=== PATIENT | male | born 1955 | race Caucasian/White ===

== ENCOUNTER 2022-11-18 16:21 | Inpatient (IN) ==
[~2022-11-18 16:21] MED LIST: KETAMINE HCL INJ 50 MG/ML 10 ML VIAL IV ONE; ROCURONIUM BROMIDE 10 MG/ML 5 ML VIAL IV ONE
[2022-11-18] MEDS ORDERED: RAPID SEQUENCE INDUCTION BAG ONE (16:38)
[2022-11-18] MEDS ORDERED: NOREPINEPHRINE/D5W 4 MG/250 ML IV ONE (16:46)
[2022-11-18] MEDS ORDERED: SODIUM CHLORIDE 0.9% 1000ML 2,000 ML IV ONE (16:56)
[2022-11-18] MEDS ORDERED: CEFEPIME 2,000 MG/20 ML VIAL IV STA (16:56)
--- NOTE | 2022-11-18 16:56 | XRay Report ---
XR chest 1V portable CLINICAL HISTORY: Chest pain, nonspecific. COMPARISON STUDY: No previous studies for comparison. FINDINGS: Multifocal airspace opacities throughout the right lung are noted. These are most pronounce d within the right lung base. There is a 3.5 cm irregular right upper lobe opacity. There is also mil d left basilar opacity. Patient is mildly rotated. No pneumothorax or pleural effusion is present. Ca rdiac size is at upper limits of normal. IMPRESSION: Multifocal airspace opacities throughout the right lung, most confluent within the right lung base. 3.5 cm irregular right upper lobe opacity and mild left basilar opacity. Although nonspec ific, the findings favor multifocal pneumonia. However, short-term radiographic follow-up is recommen ded to ensure resolution and exclude the possibility of an underlying lesion, particularly within the right upper lobe. ACT 112: Positive. There are findings on this exam that require communication between the performing entity and the patient following Patient Test Result Information Act ([place] Act 112) guidelines. Electronically signed by: Subhash Strickland M.D. 11/18/2022 4:54 PM
[2022-11-18] MEDS ORDERED: fentaNYL citrate 2,500 MCG/250 ML BAG IV ONE (16:57)
--- NOTE | 2022-11-18 16:57 | Emergency Department Note ---
Impression & Plan Septic shock, Pneumonia, Respiratory failure ED Provider Note NAME: CARLO ANTON AGE: 67 SEX: M : 1955 ARRIVES VIA: Ambulance INFORMANT: Patient, Son ED PROVIDER(S): Evaristo Wilson DO CHIEF COMPLAINT: Hypoxia/shortness of breath HPI: Patient is a 67-year-old male who presents to the ER with a 2 known meningiomas of the brain who has undergone resection radiation and now on immunotherapy. They note that he is no longer a candidate for any surgical or radiation treatment. He was brought in today as he was recently signed up with palliative care and the patient wants everything done. He does wants CPR, intubation and PEG tube. Upon presentation brought in by EMS they note that he was fairly hypoxic and on nonrebreather. PAST MEDICAL HISTORY:See Below PAST SURGICAL HISTORY:See Below FAMILY HISTORY:See Below SOCIAL HISTORY:See Below HOME MEDICATIONS:See Below ALLERGIES:See Below VITALS:See Below PHYSICAL EXAMINATION: GENERAL: Sitting up in bed, alert, ill-appearing, significant distress on a nonrebreather EYE EXAM: normal conjunctiva. PERRL and EOM's grossly intact. OROPHARYNX: Dry mucous membrane NECK: supple, no nuchal rigidity, no adenopathy, non-tender LUNGS: Diminished bilateral. Normal chest wall mechanics HEART: Tachycardic, S1 normal and S2 normal ABDOMEN: abdomen soft, non-tender, normo-active bowel sounds, no masses, no rebound or guarding. UPPER EXTREMITIES: upper extremities are grossly normal. LOWER EXTREMITIES: No pitting edema. NEURO EXAM: Normal sensorium, cranial nerves II-XII grossly intact, normal speech, no gross weakness of arms, no gross weakness of legs. MEDICAL DECISION MAKING: Patient is a 67-year-old male who presents ER for above-stated complaint. We have no records of this gentleman here. He has a known meningioma of the brain x2 with previous resection, radiation who was on palliative medicine who revoked prior to coming in and wants to be intubated, CPR and a feeding tube. Upon arrival he is found to be hypoxic on a nonrebreather at 85%. He was moved into a 1. I discussed with his son. Patient was intubated by myself. Chest x-ray confirmed ET tube placement. Was advanced 2 cm. This was performed following initial chest x-ray which showed multifocal pneumonia. Labs show no significant leukocytosis. Mild anemia 11. VBG was fairly unremarkable. BMP along with LFTs bilirubin was unremarkable. Lactate was normal. Troponin was negative. Lipase was normal. Patient was given IV cefepime as well as IV vancomycin with her recent admission to an outside facility. He was initially placed on Levophed and titrated back off. During intubation. Was placed on a Versed and fentanyl drip. He was given a dose of Toradol for fever. Family was updated. Discussed with the hospitalist Dr. Ramirez as well as the childbirth and infant care teacher for admission and further evaluation management treatment. He was also given 2 L of IV fluids while in the ER. Triage Nursing notes reviewed. Limited review of prior medical records performed Vital Signs: reviewed and remarkable for hypoxia Differential diagnosis: Differential diagnoses includes but is not limited to pneumonia, bronchitis, COPD/Asthma exacerbation, pneumothorax, pulmonary embolism, congestive heart failure, acute coronary syndrome ER treatment provided: See below Diagnostics interpreted by me include EKG and cardiac monitoring as listed b elow: -Cardiac Monitoring: An order was placed for continuous cardiac monitoring. The monitor shows a rate of 85 with sinus rhythm. -ECG: Sinus rhythm rate of 73 Normal axis No PVCs QTc 420 -Laboratory studies:Interpreted by me as stated above in MDM and shown below. Imaging studies: Xrays: As interpreted by me: Portable AP upright 1 view of the chest shows multifocal infiltrate Repeat chest x-ray shows ET tube about 4 to 5 cm above yovanny CTs show: none Consultation(s): As described in MDM Procedures:EM PROCEDURE NOTE - Endotracheal Intubation PROCEDURE NOTE: Informed consent was obtained by the patient. Verify Correct Patient: yes Procedure: Endotracheal intubation Indication: Respiratory failure The procedure was done emergently. Description of the Procedure: The patient was seen and properly identified. The patient was pre-oxygenated and intubated after rapid sequence induction with meds: Rocuronium and ketamine. Intubation was performed using a glide scope curved 3 blade and a 7.5 cuffed endotracheal tube. The tube was visualized going through the cords and secured with the 25cm jese at the lips. The patient had good bilateral breath sounds in the axillae with good chest rise. Proper ET tube placement was confirmed by end tidal CO2 detector. The patient tolerated the procedure well. Critical Care:I have personally spent 75 minutes of critical care time in the direct management of this patient. This includes bedside care, interpretation of diagnostic studies, and testing, discussion with consultants, patient, and family members, and other required patient management activities. This 75 minutes is in excess of all separately billable procedures. Past Med/Surg History Social History Smoking Status: Never smoker Preferred Language: Lao Feels Safe at Home: Yes Allergies Allergies Allergy/AdvReac Type Severity Reaction Status Date / Time iodine Allergy Unknown SWELLING Verified 11/18/22 19:43 shellfish derived Allergy Unknown SWELLING Verified 11/18/22 19:43 Home Meds Home Medications Medication Instructions Recorded Confirmed acetaminophen 650 mg rectal 650 mg TN Q4 PRN MILD PAIN/FEVER 11/18/22 11/18/22 suppository haloperidol lactate 2 mg/mL oral 1 mg PO Q4 PRN 11/18/22 11/18/22 concentrate nausea/vomiting/agitation hyoscyamine sulfate 0.125 mg tablet 0.125 mg sublingual Q4 PRN 11/18/22 11/18/22 TERMINAL SECRETIONS lorazepam 1 mg tablet See Rx Instructions .Route .COMPLEX 11/18/22 11/18/22 lorazepam 1 mg tablet See Rx Instructions .Route 11/18/22 11/18/22 .COMPLEX NTE 6 morphine concentrate 100 mg/5 mL 5 mg PO .Q 2 HOURS PRN severe 11/18/22 11/18/22 (20 mg/mL) oral solution pain/sob Results & Data (ED) Vital Signs Vital Signs - 24 hr 11/18/22 16:35 11/18/22 16:25 11/18/22 17:15 Temperature 38.1 C H Temperature Source Rectal Pulse Rate 73 72 93 H Pulse Rate from SpO2 Sensor Pulse Rhythm Regular Pulse Strength Normal Respiratory Rate 26 H 20 Respiratory Effort / Characteristics Spontaneous Respiratory Depth Shallow Respiratory Pattern Tachypnea Blood Pressure 94/61 L Blood Pressure Mean 72 Blood Pressure Position Lying Pulse Oximetry 91 94 Oxygen Delivery Method Non-rebreather Oxygen Flow Rate 15 Fraction of Inspired Oxygen 60 SaO2/FiO2 Ratio Sepsis Recent Fever Within 48 Hours No Sepsis New/Unexplained Change in Mental Status Yes Sepsis Action Taken by Nursing Physician Notified End-Tidal CO2 46 11/18/22 16:25 11/18/22 16:26 11/18/22 16:30 Temperature Temperature Source Pulse Rate 71 Pulse Rate from SpO2 Sensor 72 Pulse Rhythm Pulse Strength Respiratory Rate 28 H Respiratory Effort / Characteristics Respiratory Depth Respiratory Pattern Blood Pressure 94/61 L 106/66 Blood Pressure Mean 71 71 Blood Pressure Position Pulse Oximetry 91 Oxygen Delivery Method Oxygen Flow Rate Fraction of Inspired Oxygen SaO2/FiO2 Ratio Sepsis Recent Fever Within 48 Hours Sepsis New/Unexplained Change in Mental Status Sepsis Action Taken by Nursing End-Tidal CO2 11/18/22 16:30 11/18/22 16:40 11/18/22 16:45 Temperature Temperature Source Pulse Rate 79 74 Pulse Rate from SpO2 Sensor 74 Pulse Rhythm Pulse Strength Respiratory Rate 15 18 Respiratory Effort / Characteristics Respiratory Depth Respiratory Pattern Blood Pressure 86/58 L Blood Pressure Mean 67 Blood Pressure Position Pulse Oximetry 90 Oxygen Delivery Method Oxygen Flow Rate Fraction of Inspired Oxygen SaO2/FiO2 Ratio Sepsis Recent Fever Within 48 Hours Sepsis New/Unexplained Change in Mental Status Sepsis Action Taken by Nursing End-Tidal CO2 11/18/22 16:45 11/18/22 16:49 11/18/22 16:49 Temperature Temperature Source Pulse Rate 72 73 Pulse Rate from SpO2 Sensor 72 Pulse Rhythm Pulse Strength Respiratory Rate 22 24 Respiratory Effort / Characteristics Respiratory Depth Respiratory Pattern Blood Pressure 92/56 L Blood Pressure Mean 68 Blood Pressure Position Pulse Oximetry 91 Oxygen Delivery Method Oxygen Flow Rate Fraction of Inspired Oxygen SaO2/FiO2 Ratio Sepsis Recent Fever Within 48 Hours Sepsis New/Unexplained Change in Mental Status Sepsis Action Taken by Nursing End-Tidal CO2 11/18/22 16:50 11/18/22 16:50 11/18/22 16:53 Temperature Temperature Source Pulse Rate 73 74 Pulse Rate from SpO2 Sensor 73 73 Pulse Rhythm Pulse Strength Respiratory Rate 19 20 Respiratory Effort / Characteristics Respiratory Depth Respiratory Pattern Blood Pressure 78/55 L Blood Pressure Mean 62 Blood Pressure Position Pulse Oximetry 93 97 Oxygen Delivery Method Oxygen Flow Rate Fraction of Inspired Oxygen SaO2/FiO2 Ratio Sepsis Recent Fever Within 48 Hours Sepsis New/Unexplained Change in Mental Status Sepsis Action Taken by Nursing End-Tidal CO2 11/18/22 16:53 11/18/22 16:55 11/18/22 16:55 Temperature Temperature Source Pulse Rate 81 Pulse Rate from SpO2 Sensor 82 Pulse Rhythm Pulse Strength Respiratory Rate 24 Respiratory Effort / Characteristics Respiratory Depth Respiratory Pattern Blood Pressure 151/106 H 151/88 H Blood Pressure Mean 121 109 Blood Pressure Position Pulse Oximetry 98 Oxygen Delivery Method Oxygen Flow Rate Fraction of Inspired Oxygen SaO2/FiO2 Ratio Sepsis Recent Fever Within 48 Hours Sepsis New/Unexplained Change in Mental Status Sepsis Action Taken by Nursing End-Tidal CO2 11/18/22 16:58 11/18/22 16:58 11/18/22 17:00 Temperature Temperature Source Pulse Rate 83 Pulse Rate from SpO2 Sensor 83 Pulse Rhythm Pulse Strength Respiratory Rate 12 Respiratory Effort / Characteristics Respiratory Depth Respiratory Pattern Blood Pressure 143/87 H 162/90 H Blood Pressure Mean 105 114 Blood Pressure Position Pulse Oximetry 98 Oxygen Delivery Method Oxygen Flow Rate Fraction of Inspired Oxygen SaO2/FiO2 Ratio Sepsis Recent Fever Within 48 Hours Sepsis New/Unexplained Change in Mental Status Sepsis Action Taken by Nursing End-Tidal CO2 45 11/18/22 17:00 11/18/22 17:03 11/18/22 17:03 Temperature Temperature Source Pulse Rate 86 88 Pulse Rate from SpO2 Sensor 85 87 Pulse Rhythm Pulse Strength Respiratory Rate 16 17 Respiratory Effort / Characteristics Respiratory Depth Respiratory Pattern Blood Pressure 150/95 H Blood Pressure Mean 113 Blood Pressure Position Pulse Oximetry 96 95 Oxygen Delivery Method Oxygen Flow Rate Fraction of Inspired Oxygen SaO2/FiO2 Ratio Sepsis Recent Fever Within 48 Hours Sepsis New/Unexplained Change in Mental Status Sepsis Action Taken by Nursing End-Tidal CO2 45 46 11/18/22 17:05 11/18/22 17:05 11/18/22 17:08 Temperature Temperature Source Pulse Rate 90 Pulse Rate from SpO2 Sensor 87 Pulse Rhythm Pulse Strength Respiratory Rate 12 Respiratory Effort / Characteristics Respiratory Depth Respiratory Pattern Blood Pressure 164/97 H 158/92 H Blood Pressure Mean 119 114 Blood Pressure Position Pulse Oximetry 94 Oxygen Delivery Method Oxygen Flow Rate Fraction of Inspired Oxygen SaO2/FiO2 Ratio Sepsis Recent Fever Within 48 Hours Sepsis New/Unexplained Change in Mental Status Sepsis Action Taken by Nursing End-Tidal CO2 50 11/18/22 17:08 11/18/22 17:09 11/18/22 17:09 Temperature Temperature Source Pulse Rate 88 89 Pulse Rate from SpO2 Sensor 88 89 Pulse Rhythm Pulse Strength Respiratory Rate 17 16 Respiratory Effort / Characteristics Respiratory Depth Respiratory Pattern Blood Pressure 153/87 H Blood Pressure Mean 109 Blood Pressure Position Pulse Oximetry 94 93 Oxygen Delivery Method Oxygen Flow Rate Fraction of Inspired Oxygen SaO2/FiO2 Ratio Sepsis Recent Fever Within 48 Hours Sepsis New/Unexplained Change in Mental Status Sepsis Action Taken by Nursing End-Tidal CO2 48 47 11/18/22 17:10 11/18/22 17:10 11/18/22 17:12 Temperature Temperature Source Pulse Rate 87 Pulse Rate from SpO2 Sensor Pulse Rhythm Pulse Strength Respiratory Rate 16 Respiratory Effort / Characteristics Respiratory Depth Respiratory Pattern Blood Pressure 153/90 H 158/90 H Blood Pressure Mean 111 112 Blood Pressure Position Pulse Oximetry Oxygen Delivery Method Oxygen Flow Rate Fraction of Inspired Oxygen SaO2/FiO2 Ratio Sepsis Recent Fever Within 48 Hours Sepsis New/Unexplained Change in Mental Status Sepsis Action Taken by Nursing End-Tidal CO2 48 11/18/22 17:12 11/18/22 17:14 11/18/22 17:14 Temperature Temperature Source Pulse Rate 90 90 Pulse Rate from SpO2 Sensor 90 89 Pulse Rhythm Pulse Strength Respiratory Rate 16 17 Respiratory Effort / Characteristics Respiratory Depth Respiratory Pattern Blood Pressure 161/90 H Blood Pressure Mean 113 Blood Pressure Position Pulse Oximetry 92 93 Oxygen Delivery Method Oxygen Flow Rate Fraction of Inspired Oxygen SaO2/FiO2 Ratio Sepsis Recent Fever Within 48 Hours Sepsis New/Unexplained Change in Mental Status Sepsis Action Taken by Nursing End-Tidal CO2 49 51 11/18/22 17:15 11/18/22 17:15 11/18/22 17:20 Temperature Temperature Source Pulse Rate 92 H Pulse Rate from SpO2 Sensor Pulse Rhythm Pulse Strength Respiratory Rate 16 Respiratory Effort / Characteristics Respiratory Depth Respiratory Pattern Blood Pressure 159/94 H 158/92 H Blood Pressure Mean 115 114 Blood Pressure Position Pulse Oximetry Oxygen Delivery Method Oxygen Flow Rate Fraction of Inspired Oxygen SaO2/FiO2 Ratio Sepsis Recent Fever Within 48 Hours Sepsis New/Unexplained Change in Mental Status Sepsis Action Taken by Nursing End-Tidal CO2 51 11/18/22 17:20 11/18/22 17:39 11/18/22 17:41 Temperature Temperature Source Pulse Rate 93 H 121 H Pulse Rate from SpO2 Sensor 95 H Pulse Rhythm Pulse Strength Respiratory Rate 21 25 H Respiratory Effort / Characteristics Respiratory Depth Respiratory Pattern Blood Pressure Blood Pressure Mean Blood Pressure Position Pulse Oximetry 93 94 Oxygen Delivery Method Mechanical Vent Mechanical Vent Oxygen Flow Rate Fraction of Inspired Oxygen 60 60 SaO2/FiO2 Ratio 156 Sepsis Recent Fever Within 48 Hours Sepsis New/Unexplained Change in Mental Status Sepsis Action Taken by Nursing End-Tidal CO2 48 Laboratory Data 11/18/22 16:49 11/18/22 16:49 Lab Results 11/18/22 11/18/22 11/18/22 Range/Units 16:49 16:49 16:49 WBC 9.46 (4.8-10.8) K/ul RBC 4.34 L (4.70-6.10) M/uL Hgb 13.4 L (14.0-18.0) g/dl POC Hgb (14.0-18.0) g/dl Hct 39.1 L (42.0-52.0) % POC Hct (42-52) % MCV 90.1 (80.0-100.0) fL MCH 30.9 (25.0-34.0) pg MCHC 34.3 (32.0-36.0) g/dL RDW Std Deviation 47.3 H (36.4-46.3) fL RDW Coeff of Chhaya 14.4 (11.5-14.5) % Plt Count 219 (130-400) K/uL MPV 8.6 L (9.4-12.4) fL Immature Gran % (Auto) 0.6 % Neut % (Auto) 89.4 % Lymph % (Auto) 2.7 % Mora % (Auto) 6.8 % Eos % (Auto) 0.2 % Baso % (Auto) 0.3 % Neut # (Auto) 8.45 H (1.40-6.50) K/uL Lymph # (Auto) 0.26 L (1.2-3.4) K/uL Mora # (Auto) 0.64 H (0.11-0.59) K/uL Eos # (Auto) 0.02 (0-0.50) K/uL Baso # (Auto) 0.03 (0-0.2) K/uL Immature Gran # (Auto) 0.06 (0.01-0.20) K/uL Dohle Bodies 2+ VBG pH 7.46 H (7.36-7.41) VBG pCO2 40 (38-50) mmHg VBG pO2 58 mmHg VBG HCO3 28 mmol/L VBG O2 Saturation 89.2 % VBG Base Excess 4.2 mEq/L POC Sodium (135-144) mmol/L Sodium 138 (136-145) mmol/L POC Potassium (3.3-5.0) mmol/L Potassium 3.7 (3.5-5.1) mmol/L POC Chloride (101-112) mmol/L Chloride 104 (98-107) mmol/L Carbon Dioxide 27 (21-32) mmol/L POC Total CO2 (24-31) mmol/L Anion Gap 7 (3-11) POC Anion Gap (16-25) mmol/L POC BUN (7-18) mg/dl BUN 20 (6-23) mg/dl Creatinine 0.85 (0.6-1.4) mg/dl POC Creatinine (0.6-1.3) mg/dl Est Cr Clr Drug Dosing 88.3 ml/min Est GFR ( Amer) 105.2 ml/min Est GFR (Non-Af Amer) 90.8 ml/min BUN/Creatinine Ratio 23.5 H (10-20) Glucose 107 H (70-99(Fasting)) mg/dl POC Glucose (other) (70-99) mg/dl Lactate (0.4-2.0) mmol/L Calcium 8.3 L (8.6-10.3) mg/dl POC Ioniz Calcium Leonides (1.12-1.32) mmol/l Total Bilirubin 0.7 (0.2-1.0) mg/dl AST 9 L (13-39) U/L ALT 8 (7-52) U/L Alkaline Phosphatase 55 (34-104) U/L Troponin I High Sens 3.4 (0-20) pg/ml Total Protein 5.8 L (6.0-8.3) gm/dl Albumin 3.1 L (3.4-5.0) gm/dl Globulin 2.7 (2.5-4.0) gm/dl Albumin/Globulin Ratio 1.1 (0.9-2) Lipase 3 L (11-82) U/L 11/18/22 11/18/22 Range/Units 16:49 16:54 WBC (4.8-10.8) K/ul RBC (4.70-6.10) M/uL Hgb (14.0-18.0) g/dl POC Hgb 12.9 L (14.0-18.0) g/dl Hct (42.0-52.0) % POC Hct 38 L (42-52) % MCV (80.0-100.0) fL MCH (25.0-34.0) pg MCHC (32.0-36.0) g/dL RDW Std Deviation (36.4-46.3) fL RDW Coeff of Chhaya (11.5-14.5) % Plt Count (130-400) K/uL MPV (9.4-12.4) fL Immature Gran % (Auto) % Neut % (Auto) % Lymph % (Auto) % Mora % (Auto) % Eos % (Auto) % Baso % (Auto) % Neut # (Auto) (1.40-6.50) K/uL Lymph # (Auto) (1.2-3.4) K/uL Mora # (Auto) (0.11-0.59) K/uL Eos # (Auto) (0-0.50) K/uL Baso # (Auto) (0-0.2) K/uL Immature Gran # (Auto) (0.01-0.20) K/uL Dohle Bodies VBG pH (7.36-7.41) VBG pCO2 (38-50) mmHg VBG pO2 mmHg VBG HCO3 mmol/L VBG O2 Saturation % VBG Base Excess mEq/L POC Sodium 138 (135-144) mmol/L Sodium (136-145) mmol/L POC Potassium 3.7 (3.3-5.0) mmol/L Potassium (3.5-5.1) mmol/L POC Chloride 101 (101-112) mmol/L Chloride (98-107) mmol/L Carbon Dioxide (21-32) mmol/L POC Total CO2 23 L (24-31) mmol/L Anion Gap (3-11) POC Anion Gap 19.0 (16-25) mmol/L POC BUN 18 (7-18) mg/dl BUN (6-23) mg/dl Creatinine (0.6-1.4) mg/dl POC Creatinine 0.8 (0.6-1.3) mg/dl Est Cr Clr Drug Dosing ml/min Est GFR ( Amer) ml/min Est GFR (Non-Af Amer) ml/min BUN/Creatinine Ratio (10-20) Glucose (70-99(Fasting)) mg/dl POC Glucose (other) 111 H (70-99) mg/dl Lactate 1.0 (0.4-2.0) mmol/L Calcium (8.6-10.3) mg/dl POC Ioniz Calcium Leonides 1.11 L (1.12-1.32) mmol/l Total Bilirubin (0.2-1.0) mg/dl AST (13-39) U/L ALT (7-52) U/L Alkaline Phosphatase (34-104) U/L Troponin I High Sens (0-20) pg/ml Total Protein (6.0-8.3) gm/dl Albumin (3.4-5.0) gm/dl Globulin (2.5-4.0) gm/dl Albumin/Globulin Ratio (0.9-2) Lipase (11-82) U/L Administered Medications Fentanyl Citrate (Fentanyl Bolus From Bag) 50 mcg IV Q60M PRN PRN Reason: Pain or Agitation Stop: 12/02/22 16:58 Last Admin: 11/18/22 17:48 Dose: 50 mcg Documented By: MES Co-signed By: ACC Midazolam HCl (Versed) 125 mg in 250 mls @ 2 mls/hr IV .Q96H RODERICK; Protocol Stop: 12/18/22 16:59 Last Admin: 11/18/22 17:13 Dose: 1 mg/hr, 2 mls/hr Documented By: ACC Co-signed By: MES Fentanyl Citrate (Fentanyl Citrate) 2,500 mcg in 250 mls @ 2.5 mls/hr IV .Q96H RODERICK; Protocol Stop: 12/02/22 16:59 Last Admin: 11/18/22 17:07 Dose: 25 mcg/hr, 2.5 mls/hr Documented By: ACC Co-signed By: MES Norepinephrine Bitartrate (Levophed/D5w) 4 mg in 250 mls @ 0 mls/hr IV .Q0M RODERICK; Protocol Stop: 12/18/22 17:14 Last Titration: 11/18/22 17:37 Dose: 0 mcg/kg/min, 0 mls/hr Documented By: Admin: 11/18/22 17:36 Dose: 0.03 mcg/kg/min, 8.3 mls/hr Documented By: ACC Co-signed By: MES Midazolam HCl (Midazolam Bolus From Bag) 2 mg IV Q60M PRN PRN Reason: Sedation Stop: 12/18/22 16:58 Last Admin: 11/18/22 17:48 Dose: 2 mg Documented By: MES Co-signed By: ACC Discontinued Medications Fentanyl Citrate (Fentanyl Citrate 2,500 Mcg/250 Ml Bag) Confirm Administered Dose 2,500 mcg IV .STK-MED ONE Stop: 11/18/22 16:58 Last Admin: 11/18/22 17:35 Dose: Not Given Documented By: ACC Cefepime HCl (Maxipime) 2,000 mg in 20 mls @ 5 mls/min IV NOW STA; Protocol Stop: 11/18/22 16:59 Last Admin: 11/18/22 17:47 Dose: 5 mls/min Documented By: MES Sodium Chloride (Nss 1000ml) 2,000 mls @ 999 mls/hr IV .Q2H1M ONE Stop: 11/18/22 18:56 Last Admin: 11/18/22 17:36 Dose: 999 mls/hr Documented By: ACC Vancomycin HCl 1,500 mg/ (Sodium Chloride) 530 mls @ 200 mls/hr IV NOW ONE Stop: 11/18/22 19:56 Last Admin: 11/18/22 18:00 Dose: 200 mls/hr Documented By: ACC Ketorolac Tromethamine (Ketorolac Tromethamine 15 Mg/Ml Vial) 15 mg IV NOW ONE Stop: 11/18/22 17:37 Last Admin: 11/18/22 17:48 Dose: 15 mg Documented By: MES Norepinephrine Bitartrate (Norepinephrine/D5w 4 Mg/250 Ml) Confirm Administered Dose 4 mg IV .STK-MED ONE Stop: 11/18/22 16:47 Last Admin: 11/18/22 17:36 Dose: Not Given Documented By: ACC Imaging Data Radiologist's Impression: Chest X-Ray 11/18/22 16:34 XR chest 1V portable CLINICAL HISTORY: Chest pain, nonspecific. COMPARISON STUDY: No previous studies for comparison. FINDINGS: Multifocal airspace opacities throughout the right lung are noted. These are most pronounced within the right lung base. There is a 3.5 cm irregu lar right upper lobe opacity. There is also mild left basilar opacity. Patient is mildly rotated. No pneumothorax or pleural effusion is present. Cardiac size is at upper limits of normal. IMPRESSION: Multifocal airspace opacities throughout the right lung, most confluent within the right lung base. 3.5 cm irregular right upper lobe opacity and mild left basilar opacity. Although nonspecific, the findings favor multifocal pneumonia. However, short-term radiographic follow-up is recommended to ensure resolution and exclude the possibility of an underlying lesion, part icularly within the right upper lobe. ACT 112: Positive. There are findings on this exam that require communication between the performing entity and the patient following Patient Test Result Information Act ([place] Act 112) guidelines. Electronically signed by: Subhash Strickland M.D. 11/18/2022 4:54 PM Chest X-Ray 11/18/22 16:57 XR chest 1V portable HISTORY: Evaluate endotracheal tube placement. COMPARISON: Chest 11/18/2022. FINDINGS: Endotracheal tube terminates 5.4 cm from the yovanny. No pneumothorax. No pleural effusions. The cardiac silhouette remains mildly enlarged. Multifocal airspace opacities within the right lung are again noted with consolidation at the right lower lobe. There are few small patchy airspace opacities within the left lung base. This likely represents a multifocal pneumonia. IMPRESSION: 1. Endotracheal tube terminates 5.4 cm from the yovanny. 2. Multifocal airspace opacities most pronounced on the right again noted. This favors a pneumonia. Chest x-ray follow-up recommended to ensure resolution. ACT 112: Negative or not required by law. Electronically signed by: Felix Cristobal M.D. 11/18/2022 5:07 PM Discharge Plan Visit Data Chief Complaint: Shortness of Breath/Dyspnea Stated Complaint: POSS ASPIRATION ED Provider: Evaristo Wilson Discharge Problem: Septic shock, Pneumonia, Respiratory failure Patient Disposition: Admitted As Inpatient Discharge Instructions Interventions: ED Discharge Assessment Last Done: 11/18/22 18:44
[2022-11-18] MEDS ORDERED: MIDAZOLAM BOLUS FROM BAG IV PRN (16:59)
[2022-11-18] MEDS ORDERED: STAT IV Infusion **Titration per Protocol STA ×3 (16:59→19:23)
[2022-11-18] MEDS ORDERED: fentaNYL citrate 2,500 MCG/250 ML BAG IV SCH (17:00)
[2022-11-18] MEDS ORDERED: MIDAZOLAM HCL 125 MG/250 ML BAG IV SCH (17:00)
[2022-11-18 17:02] LABS: Base Excess VBG 4.2 mEq/L; HCO3 VBG 28 mmol/L; Oxygen Saturation VBG 89.2 %; PCO2 VBG 40 mmHg (38-50); PO2 VBG 58 mmHg; pH VBG 7.46 (7.36-7.41)
[2022-11-18 17:08] LABS: iSTAT Creatinine 0.8 mg/dl (0.6-1.3); iSTAT Hemoglobin 12.9 g/dl (14.0-18.0); iSTAT Ionized Calcium 1.11 mmol/l (1.12-1.32); iSTAT Potassium 3.7 mmol/L (3.3-5.0)
--- NOTE | 2022-11-18 17:08 | XRay Report ---
XR chest 1V portable HISTORY: Evaluate endotracheal tube placement. COMPARISON: Chest 11/18/2022. FINDINGS: Endotracheal tube terminates 5.4 cm from the yovanny. No pneumothorax. No pleural effusions. The cardiac silhouette remains mildly enlarged. Multifocal airspace opacities within the right lung are again noted with consolidation at the right lower lobe. There are few small patchy airspace opaci ties within the left lung base. This likely represents a multifocal pneumonia. IMPRESSION: 1. Endotracheal tube terminates 5.4 cm from the yovanny. 2. Multifocal airspace opacities most pronounced on the right again noted. This favors a pneumonia. C hest x-ray follow-up recommended to ensure resolution. ACT 112: Negative or not required by law. Electronically signed by: Felix Cristobal M.D. 11/18/2022 5:07 PM
[2022-11-18] MEDS ORDERED: VANCOMYCIN HCL 1,500 MG in SODIUM CHLORIDE 0.9% 500 ML IV ONE (17:18)
[2022-11-18] MEDS ORDERED: VANCOMYCIN CONSULT ACTIVE PRN (17:18)
[2022-11-18 17:21] LABS: Hematocrit (blood only) 39.1 % (42.0-52.0); Hemoglobin 13.4 g/dl (14.0-18.0); Mean Corpuscular Hemoglobin 30.9 pg (25.0-34.0); Mean Corpuscular Hgb Conc 34.3 g/dL (32.0-36.0); Mean Corpuscular Volume 90.1 fL (80.0-100.0); Mean Platelet Volume 8.6 fL (9.4-12.4); Platelet Count 219 K/uL (130-400); RDW Coefficient of Variation 14.4 % (11.5-14.5); RDW Standard Deviation 47.3 fL (36.4-46.3); Red Blood Count 4.34 M/uL (4.70-6.10); White Blood Count 9.46 K/ul (4.8-10.8)
[2022-11-18 17:28] LABS: Albumin Globulin Ratio 1.1 (0.9-2); Albumin Level 3.1 gm/dl (3.4-5.0); BUN Creatinine Ratio 23.5 (10-20); Bilirubin,Total 0.7 mg/dl (0.2-1.0); Calcium 8.3 mg/dl (8.6-10.3); Creatinine Clr Calc Pharmacy 88.3 ml/min; Est GFR (African American) 105.2 ml/min; Est GFR (Non-African American) 90.8 ml/min; Globulin 2.7 gm/dl (2.5-4.0); Potassium 3.7 mmol/L (3.5-5.1); Total Protein 5.8 gm/dl (6.0-8.3)
[2022-11-18 17:33] LABS: Troponin I High Sensitivity 3.4 pg/ml (0-20)
[2022-11-18] MEDS: NOREPINEPHRINE/D5W 4 MG/250 ML PLCT IV SCH (17:36)
[2022-11-18] MEDS ORDERED: KETOROLAC TROMETHAMINE 15 MG/ML VIAL IV ONE (17:36)
[2022-11-18] MEDS: fentaNYL BOLUS from BAG IV PRN ×2 (17:48→20:30)
[2022-11-18 17:54] LABS: Basophils # (auto) 0.03 K/uL (0-0.2); Basophils % (auto) 0.3 %; Dohle Bodies 2+; Eosinophils # (auto) 0.02 K/uL (0-0.50); Eosinophils % (auto) 0.2 %; Immature Granulocytes # (auto) 0.06 K/uL (0.01-0.20); Immature Granulocytes % (auto) 0.6 %; Lymphocytes # (auto) 0.26 K/uL (1.2-3.4); Lymphocytes % (auto) 2.7 %; Monocytes # (auto) 0.64 K/uL (0.11-0.59); Monocytes % (auto) 6.8 %; Neutrophils # (auto) 8.45 K/uL (1.40-6.50); Neutrophils % (auto) 89.4 %
[2022-11-18] MEDS ORDERED: DEXAMETHASONE SOD INJ 4 MG/ML VIAL IV SCH (18:00)
--- NOTE | 2022-11-18 18:25 | History & Physical Report ---
Date of Service November 18, 2022 Assessment & Plan (1) Septic shock: Plan: Admitted with increasing shortness of breath cough and noted to be febrile with low blood pressure Likely secondary to multilobar pneumonia which could be due to aspiration Has been intubated and started on intravenous pressor resents Started on intravenous cefepime and vancomycin Blood cultures have been taken [employer] consulted (2) Pneumonia: Plan: Likely secondary to aspiration History of brain meningioma on Keytruda and dexamethasone Has been having problem with swallowing for the last 1 month or more Condition got worse this morning with increasing shortness of breath likely secondary to ongoing aspiration Started on intravenous cefepime and vancomycin (3) Meningioma determined by biopsy of brain: Plan: Meningioma initial diagnosis 2015, biopsy done in [address] 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 Fournier in [facility]. He was evaluated in September of this year by Dr. Fournier and he has been otherwise stable without any significant problem. He started to have abnormal speech and also issues with swallowing about more than 1 month ago and he has been on Keytruda and dexamethasone for meningioma and the complication detailed of that is not known. He also was diagnosed with melanoma involving the left IUD a which according to the family members was clear but now he has melanoma involving the right side as well. He has been in [place] and on Tuesday he was evaluated by hospice service for continuation of hospice care at home. The patient decided to come to [place] near to his son and family members and was evaluated by local hospice service this morning. He did not have any significant symptoms since Tuesday except occasional cough but no fever and or chills but this morning his condition got severely worse with wheezing more shortness of breath and unsteady gait when he was advised to come to the emergency room for further evaluation. Also during that time he mentioned to have all procedures like intubation, resuscitation, feeding tube to be done if it requires so that was a change from his requirements since Tuesday. In the ER he was very short of breath febrile and noted to have very low blood pressure with chest x-ray evidence of multilobar pneumonia mostly on the right side and which required intubation. He was started with intravenous cefepime, vancomycin and pressor resents in the emergency room and was admitted to ICU for continuation of care. Allergies Allergy/AdvReac Type Severity Reaction Status Date / Time SHELL FISH/IODINE Allergy Unknown SWELLING Uncoded 11/18/22 17:11 Home Medications Medication Instructions Recorded Confirmed Type acetaminophen 650 mg rectal 650 mg OK Q4 PRN MILD PAIN/FEVER 11/18/22 11/18/22 History suppository haloperidol lactate 2 mg/mL oral 1 mg PO Q4 PRN 11/18/22 11/18/22 History concentrate nausea/vomiting/agitation hyoscyamine sulfate 0.125 mg tablet 0.125 mg sublingual Q4 PRN 11/18/22 11/18/22 History TERMINAL SECRETIONS lorazepam 1 mg tablet See Rx Instructions .Route .COMPLEX 11/18/22 11/18/22 History lorazepam 1 mg tablet See Rx Instructions .Route 11/18/22 11/18/22 History .COMPLEX NTE 6 morphine concentrate 100 mg/5 mL 5 mg PO .Q 2 HOURS PRN severe 11/18/22 11/18/22 History (20 mg/mL) oral solution pain/sob Past Med/Surg History Social History Smoking Status: Never smoker Preferred Language: Swazi Feels Safe at Home: Yes Review of Systems Review of Systems: Unobtainable due to endotracheal tube Physical Exam Physical Exam: Remains on mechanical ventilation and sedation Constitutional: well developed, well nourished, + ill appearing and + obese Eyes: Closed on the left and partially open on the right side ENMT: external ear and nose normal, oropharynx normal Neck: trachea midline, no thyromegaly Respiratory: Auscultation: + crackles (Coarse crackles right side) Remains intubated on mechanical ventilation, Cardiovascular: Rate/Rhythm: regular rate, regular rhythm and + tachycardic Heart Sounds: normal S1 and normal S2; no murmur Extremities: no edema Gastrointestinal (Abdomen): Inspection/Auscultation: normal bowel sounds; abdomen not distended Percussion/Palpation: abdomen soft Musculoskeletal: No acute arthritis in any joint Neurologic: Intubated on mechanical ventilation Results & Data Results & Data Vital Signs (Past 12 Hours) Vital Signs Temp Pulse Resp BP Pulse Ox O2 Del Method O2 Flow Rate 11/18/22 17:41 121 H 25 H 94 Mechanical Vent 11/18/22 17:39 Mechanical Vent 11/18/22 17:20 93 H 21 93 11/18/22 17:20 158/92 H 11/18/22 17:15 159/94 H 11/18/22 17:15 92 H 16 11/18/22 17:14 161/90 H 11/18/22 17:14 90 17 93 11/18/22 17:12 90 16 92 11/18/22 17:12 158/90 H 11/18/22 17:10 87 16 11/18/22 17:10 153/90 H 11/18/22 17:09 153/87 H 11/18/22 17:09 89 16 93 11/18/22 17:08 88 17 94 11/18/22 17:08 158/92 H 11/18/22 17:05 164/97 H 11/18/22 17:05 90 12 94 11/18/22 17:03 88 17 95 11/18/22 17:03 150/95 H 11/18/22 17:00 86 16 96 11/18/22 17:00 162/90 H 11/18/22 16:58 83 12 98 11/18/22 16:58 143/87 H 11/18/22 16:55 81 24 98 11/18/22 16:55 151/88 H 11/18/22 16:53 151/106 H 11/18/22 16:53 74 20 97 11/18/22 16:50 73 19 93 11/18/22 16:50 78/55 L 11/18/22 16:49 92/56 L 11/18/22 16:49 73 24 91 11/18/22 16:45 72 22 11/18/22 16:45 86/58 L 11/18/22 16:40 74 18 90 11/18/22 16:30 79 15 11/18/22 16:30 106/66 11/18/22 16:26 71 28 H 91 11/18/22 16:25 94/61 L 11/18/22 17:15 93 H 20 94 11/18/22 16:25 72 11/18/22 16:35 38.1 C H 73 26 H 94/61 L 91 Non-rebreather 15 FiO2 11/18/22 17:41 60 11/18/22 17:39 60 11/18/22 17:20 11/18/22 17:20 11/18/22 17:15 11/18/22 17:15 11/18/22 17:14 11/18/22 17:14 11/18/22 17:12 11/18/22 17:12 11/18/22 17:10 11/18/22 17:10 11/18/22 17:09 11/18/22 17:09 11/18/22 17:08 11/18/22 17:08 11/18/22 17:05 11/18/22 17:05 11/18/22 17:03 11/18/22 17:03 11/18/22 17:00 11/18/22 17:00 11/18/22 16:58 11/18/22 16:58 11/18/22 16:55 11/18/22 16:55 11/18/22 16:53 11/18/22 16:53 11/18/22 16:50 11/18/22 16:50 11/18/22 16:49 11/18/22 16:49 11/18/22 16:45 11/18/22 16:45 11/18/22 16:40 11/18/22 16:30 11/18/22 16:30 11/18/22 16:26 11/18/22 16:25 11/18/22 17:15 60 11/18/22 16:25 11/18/22 16:35 Laboratory Results Short CBC 11/18/22 Range/Units 16:49 WBC 9.46 (4.8-10.8) K/ul Hgb 13.4 L (14.0-18.0) g/dl Hct 39.1 L (42.0-52.0) % Plt Count 219 (130-400) K/uL BMP 11/18/22 16:49 Sodium 138 Potassium 3.7 Chloride 104 Carbon Dioxide 27 BUN 20 Creatinine 0.85 Glucose 107 H Calcium 8.3 L Liver Function 11/18/22 Range/Units 16:49 Total Bilirubin 0.7 (0.2-1.0) mg/dl AST 9 L (13-39) U/L ALT 8 (7-52) U/L Alkaline Phosphatase 55 (34-104) U/L Albumin 3.1 L (3.4-5.0) gm/dl Medications Administered Current Inpatient Medications Dexamethasone (Dexamethasone Sod Inj 4 Mg/Ml Vial) 4 mg IV Q6H PENDING SALE TO [facility] Stop: 12/18/22 17:59 Fentanyl Citrate (Fentanyl Bolus From Bag) 50 mcg IV Q60M PRN PRN Reason: Pain or Agitation Stop: 12/02/22 16:58 Last Admin: 11/18/22 17:48 Dose: 50 mcg Sodium Chloride (Nss 1000ml) 2,000 mls @ 999 mls/hr IV .Q2H1M ONE Stop: 11/18/22 18:56 Last Admin: 11/18/22 17:36 Dose: 999 mls/hr Midazolam HCl (Versed) 125 mg in 250 mls @ 2 mls/hr IV .Q96H RODERICK; Protocol Stop: 12/18/22 16:59 Last Admin: 11/18/22 17:13 Dose: 1 mg/hr, 2 mls/hr Fentanyl Citrate (Fentanyl Citrate) 2,500 mcg in 250 mls @ 2.5 mls/hr IV .Q96H RODERICK; Protocol Stop: 12/02/22 16:59 Last Admin: 11/18/22 17:07 Dose: 25 mcg/hr, 2.5 mls/hr Norepinephrine Bitartrate (Levophed/D5w) 4 mg in 250 mls @ 0 mls/hr IV .Q0M RODERICK; Protocol Stop: 12/18/22 17:14 Last Titration: 11/18/22 17:37 Dose: 0 mcg/kg/min, 0 mls/hr Vancomycin HCl 1,500 mg/ (Sodium Chloride) 530 mls @ 200 mls/hr IV NOW ONE Stop: 11/18/22 19:56 Last Admin: 11/18/22 18:00 Dose: 200 mls/hr Cefepime HCl 2,000 mg/ Syringe 20 mls @ 5 mls/min IV Q8H RODERICK; Protocol Stop: 11/26/22 00:00 Midazolam HCl (Midazolam Bolus From Bag) 2 mg IV Q60M PRN PRN Reason: Sedation Stop: 12/18/22 16:58 Last Admin: 11/18/22 17:48 Dose: 2 mg Miscellaneous Information (Vancomycin Consult Active) 1 each N/A UD PRN PRN Reason: Consult Stop: 12/18/22 17:17 Code Status & VTE Plan VTE Prophylaxis Plan VTE Prophylaxis will be ordered: Yes
[2022-11-18] MEDS ORDERED: ACETAMINOPHEN 650 MG SUPP PR PRN (18:29)
[2022-11-18] MEDS ORDERED: NSS + 20MEQ KCL 20 MEQ/1,000 ML BAG IV SCH (19:15)
[2022-11-18] MEDS ORDERED: HYDROCORTISONE SOD 100 MG in SYRINGE 0 ML IV STA (19:19)
[2022-11-18] MEDS ORDERED: VASOPRESSIN 20 UNITS in 0.9 % SODIUM CHLORIDE 100 ML IV SCH (19:30)
--- NOTE | 2022-11-18 19:34 | Critical Care Progress Note ---
Date of Service November 18, 2022 Assessment & Plan (1) Meningioma determined by biopsy of brain: Plan: The patient has been battling a meningioma since 2017. Initially it was reported as grade 1. However surgical excision was not curative and only 80% was able to be resected whereas 20% remained as it was enveloping some vital TOOL AND DIE REPAIRER structures. He underwent radiation therapy. He underwent a second diagnostic surgery as there was a second lesion that developed. It occurred behind his right eye. 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 This was 2 years ago. He sought a second opinion in [place] and they had just completed a clinical trial with Keytruda showing that there was an arrest of growth so he was started on Keytruda which was now administered here in [place]. He started on treatment in July and received dosing every 3 weeks. However despite that he started to continue to deteriorate. He had noticed further difficulties swallowing and some ambulation. He was having some drooping of his right side of his face and drooling out of his mouth and eye drooping. Family did notice some's dilatation of his right pupil at least over this past week. There have been challenging social situations with him and his current . She has become apparently per the rest of his family frustrated with his deteriorating clinical status and had her first passed from also a brain tumor and it seemed that she was triggered by that and not thought to be able to care for him during and through this current 6 medical deterioration. He was in the process of changing his will and healthcare agent. He had laid out all of the paperwork. He was going to have the manager metrology come to his home tomorrow to sign the paperwork but he had a dramatic setback today. It should be noted that last week he did present to another facility which was not his usual hospital. They had noted neurologic deterioration and he failed his swallow evaluation. They strongly suggested placing a PEG. But he did not want that and thought that he was managing his chronic aspiration. He was not discharged AGAINST MEDICAL ADVICE but was discharged on nonetheless and was brought back to his ex- 's house, not his current . There were discussions of palliative care and palliative care came to his home and initially he was signed up as a hospice patient. Then he had a setback today which had been perhaps getting worse over several days. He was having difficulty ambulating and worsening neurologic status. Hospice came and then in front of hospice he decided that he wanted "everything done". He then reverted to full code including allowing to be intubated and resuscitated with CPR. In speaking with family they want to continue with a full CODE STATUS for now and it seems that he has this unfinished social business. 1. Neuropsych: Above dysfunctional family dynamics as above. Tomorrow we should engage case management and possibly risk-management to assign a healthcare agent for consent during this hospital stay. Ideally, the patient at some point will be able to be woken up and through witnesses would be able to assign his healthcare proxy. He does not need to be extubated he just needs to demonstrate capacity in order to assign his healthcare agent. He did relayed to the manager metrology that going forward he wanted his son to be his designated healthcare agent but right now we have nothing in writing. Clearly, we are concerned about the progressive meningiomas despite therapy. Family was present and did not seem like there was a seizure that was witnessed and that it was an obvious aspiration event. We are waiting for a head CT scan in 1 to make sure that there is no bleed or herniation. Family says that the right pupil dilatation is chronic at least for about a week. 2. Cardiovascular: The patient is in profound septic shock. He is on Levophed at about 20 and we will start vasopressin. As he was on dexamethasone for cerebral edema we can start IV hydrocortisone. We will also want to give him IV fluids but be careful about excessive volume overload especially until we obtain a head CT scan to make sure there is not a profound herniation. While we are getting a head CT scan we should do a CT angiogram to make sure there is no pulmonary embolism given his shock and severe hypoxemia. 3. Respiratory: The patient has been intubated on mechanical ventilation. He is on assist-control ventilation but with profound hypoxemia with 100% FiO2 and 8 of PEEP. We will continue that for now. Initial blood gas showed a little hyperventilation which may not be unreasonable with any pending herniation. But his elevated PEEP could affect his hypotension. 4. GI: Right now no active issues but with his shock we will check for shock liver. N.p.o. while he is on so many pressors. He will be started on IV Protonix. 5. Renal: Right now no active issues but he may develop ATN from his severe shock. Because of normal renal function right now we will be able to get a CT angiogram to look for PE. 6. ID: Broad coverage for his obvious aspiration pneumonia in his right lower lung. He is on vancomycin and cefepime. We will check for Legionella urinary antigen and pneumococcal antigen. We will try to get a sputum culture. Blood cultures have been sent. We will check for COVID RSV and influenza. We will also check for MRSA and if negative we can downgrade and discontinue the vancomycin. 7. Heme: Will just put compression boots for now until we make sure that there is no bleeding in his head. I am reluctant to give him DVT prophylaxis with the TOOL AND DIE REPAIRER lesions. 8. Endocrine: Right now no active issues but we are giving him IV hydrocortisone so we will follow his sugars and may need a sliding scale. For now, the patient is full code. He started to move his limbs off of sedation so we will resume at this time. Total time in speaking with his family 45 minutes above direct patient care. Total critical care time 105 minutes. (2) Pneumonia: (3) Septic shock: Admission and Anticipated Discharge Date Admission Date: November 18, 2022 Subjective The patient is not able to provide review of systems as he is intubated and sedated. After coming up to the ICU he is much less responsive and is not responding despite stopping his sedation at this time. Physical Exam Physical Exam: The patient is intubated and was sedated and now is off. In the emergency room he was moving both of his arms and now is not responsive. His pupil on the right is bigger than the left. Neither are reactive to light. The right pupil is not quite fixed in the mid position yet however. Neck is supple without adenopathy lungs are diminished breath sounds particularly in the right heart is regular rate and rhythm without murmurs of the gallops abdomen soft nontender without apparent hepatosplenomegaly extremities without clubbing cyanosis or edema no unilateral lower extremity edema. Results & Data Results & Data Vital Signs (Past 12 Hours) Vital Signs Temp Pulse Resp BP Pulse Ox O2 Del Method O2 Flow Rate 11/18/22 19:00 95 11/18/22 18:49 73 20 89 L 11/18/22 18:44 92 Mechanical Vent 11/18/22 17:41 121 H 25 H 94 Mechanical Vent 11/18/22 17:39 Mechanical Vent 11/18/22 17:20 93 H 21 93 11/18/22 17:20 158/92 H 11/18/22 17:15 159/94 H 11/18/22 17:15 92 H 16 11/18/22 17:14 161/90 H 11/18/22 17:14 90 17 93 11/18/22 17:12 90 16 92 11/18/22 17:12 158/90 H 11/18/22 17:10 87 16 11/18/22 17:10 153/90 H 11/18/22 17:09 153/87 H 11/18/22 17:09 89 16 93 11/18/22 17:08 88 17 94 11/18/22 17:08 158/92 H 11/18/22 17:05 164/97 H 11/18/22 17:05 90 12 94 11/18/22 17:03 88 17 95 11/18/22 17:03 150/95 H 11/18/22 17:00 86 16 96 11/18/22 17:00 162/90 H 11/18/22 16:58 83 12 98 11/18/22 16:58 143/87 H 11/18/22 16:55 81 24 98 11/18/22 16:55 151/88 H 11/18/22 16:53 151/106 H 11/18/22 16:53 74 20 97 11/18/22 16:50 73 19 93 11/18/22 16:50 78/55 L 11/18/22 16:49 92/56 L 11/18/22 16:49 73 24 91 11/18/22 16:45 72 22 11/18/22 16:45 86/58 L 11/18/22 16:40 74 18 90 11/18/22 16:30 79 15 11/18/22 16:30 106/66 11/18/22 16:26 71 28 H 91 11/18/22 16:25 94/61 L 11/18/22 17:15 93 H 20 94 11/18/22 16:25 72 11/18/22 16:35 38.1 C H 73 26 H 94/61 L 91 Non-rebreather 15 FiO2 11/18/22 19:00 100 11/18/22 18:49 60 11/18/22 18:44 11/18/22 17:41 60 11/18/22 17:39 60 11/18/22 17:20 11/18/22 17:20 11/18/22 17:15 11/18/22 17:15 11/18/22 17:14 11/18/22 17:14 11/18/22 17:12 11/18/22 17:12 11/18/22 17:10 11/18/22 17:10 11/18/22 17:09 11/18/22 17:09 11/18/22 17:08 11/18/22 17:08 11/18/22 17:05 11/18/22 17:05 11/18/22 17:03 11/18/22 17:03 11/18/22 17:00 11/18/22 17:00 11/18/22 16:58 11/18/22 16:58 11/18/22 16:55 11/18/22 16:55 11/18/22 16:53 11/18/22 16:53 11/18/22 16:50 11/18/22 16:50 11/18/22 16:49 11/18/22 16:49 11/18/22 16:45 11/18/22 16:45 11/18/22 16:40 11/18/22 16:30 11/18/22 16:30 11/18/22 16:26 11/18/22 16:25 11/18/22 17:15 60 11/18/22 16:25 11/18/22 16:35 Laboratory Results Laboratory Results WBC 9.46 K/ul (4.8-10.8) 11/18/22 16:49 RBC 4.34 M/uL (4.70-6.10) L 11/18/22 16:49 Hgb 13.4 g/dl (14.0-18.0) L 11/18/22 16:49 POC Hgb 12.9 g/dl (14.0-18.0) L 11/18/22 16:54 Hct 39.1 % (42.0-52.0) L 11/18/22 16:49 POC Hct 38 % (42-52) L 11/18/22 16:54 MCV 90.1 fL (80.0-100.0) 11/18/22 16:49 MCH 30.9 pg (25.0-34.0) 11/18/22 16:49 MCHC 34.3 g/dL (32.0-36.0) 11/18/22 16:49 RDW Std Deviation 47.3 fL (36.4-46.3) H 11/18/22 16:49 RDW Coeff of Chhaya 14.4 % (11.5-14.5) 11/18/22 16:49 Plt Count 219 K/uL (130-400) 11/18/22 16:49 MPV 8.6 fL (9.4-12.4) L 11/18/22 16:49 Immature Gran % (Auto) 0.6 % 11/18/22 16:49 Neut % (Auto) 89.4 % 11/18/22 16:49 Lymph % (Auto) 2.7 % 11/18/22 16:49 [place] % (Auto) 6.8 % 11/18/22 16:49 Eos % (Auto) 0.2 % 11/18/22 16:49 Baso % (Auto) 0.3 % 11/18/22 16:49 Neut # (Auto) 8.45 K/uL (1.40-6.50) H 11/18/22 16:49 Lymph # (Auto) 0.26 K/uL (1.2-3.4) L 11/18/22 16:49 [place] # (Auto) 0.64 K/uL (0.11-0.59) H 11/18/22 16:49 Eos # (Auto) 0.02 K/uL (0-0.50) 11/18/22 16:49 Baso # (Auto) 0.03 K/uL (0-0.2) 11/18/22 16:49 Immature Gran # (Auto) 0.06 K/uL (0.01-0.20) 11/18/22 16:49 Dohle Bodies 2+ 11/18/22 16:49 VBG pH 7.46 (7.36-7.41) H 11/18/22 16:49 VBG pCO2 40 mmHg (38-50) 11/18/22 16:49 VBG pO2 58 mmHg 11/18/22 16:49 VBG HCO3 28 mmol/L 11/18/22 16:49 VBG O2 Saturation 89.2 % 11/18/22 16:49 VBG Base Excess 4.2 mEq/L 11/18/22 16:49 POC Sodium 138 mmol/L (135-144) 11/18/22 16:54 Sodium 138 mmol/L (136-145) 11/18/22 16:49 POC Potassium 3.7 mmol/L (3.3-5.0) 11/18/22 16:54 Potassium 3.7 mmol/L (3.5-5.1) 11/18/22 16:49 POC Chloride 101 mmol/L (101-112) 11/18/22 16:54 Chloride 104 mmol/L (98-107) 11/18/22 16:49 Carbon Dioxide 27 mmol/L (21-32) 11/18/22 16:49 POC Total CO2 23 mmol/L (24-31) L 11/18/22 16:54 Anion Gap 7 (3-11) 11/18/22 16:49 POC Anion Gap 19.0 mmol/L (16-25) 11/18/22 16:54 POC BUN 18 mg/dl (7-18) 11/18/22 16:54 BUN 20 mg/dl (6-23) 11/18/22 16:49 Creatinine 0.85 mg/dl (0.6-1.4) 11/18/22 16:49 POC Creatinine 0.8 mg/dl (0.6-1.3) 11/18/22 16:54 Est Cr Clr Drug Dosing 88.3 ml/min 11/18/22 16:49 Est GFR ( Amer) 105.2 ml/min 11/18/22 16:49 Est GFR (Non-Af Amer) 90.8 ml/min 11/18/22 16:49 BUN/Creatinine Ratio 23.5 (10-20) H 11/18/22 16:49 Glucose 107 mg/dl (70-99(Fasting)) H 11/18/22 16:49 POC Glucose (other) 111 mg/dl (70-99) H 11/18/22 16:54 Lactate 1.0 mmol/L (0.4-2.0) 11/18/22 16:49 Calcium 8.3 mg/dl (8.6-10.3) L 11/18/22 16:49 POC Ioniz Calcium Leonides 1.11 mmol/l (1.12-1.32) L 11/18/22 16:54 Total Bilirubin 0.7 mg/dl (0.2-1.0) 11/18/22 16:49 AST 9 U/L (13-39) L 11/18/22 16:49 ALT 8 U/L (7-52) 11/18/22 16:49 Alkaline Phosphatase 55 U/L (34-104) 11/18/22 16:49 Troponin I High Sens 3.4 pg/ml (0-20) 11/18/22 16:49 Total Protein 5.8 gm/dl (6.0-8.3) L 11/18/22 16:49 Albumin 3.1 gm/dl (3.4-5.0) L 11/18/22 16:49 Globulin 2.7 gm/dl (2.5-4.0) 11/18/22 16:49 Albumin/Globulin Ratio 1.1 (0.9-2) 11/18/22 16:49 Lipase 3 U/L (11-82) L 11/18/22 16:49 Impressions Chest X-Ray 11/18/22 16:57 XR chest 1V portable HISTORY: Evaluate endotracheal tube placement. COMPARISON: Chest 11/18/2022. FINDINGS: Endotracheal tube terminates 5.4 cm from the yovanny. No pneumothorax. No pleural effusions. The cardiac silhouette remains mildly enlarged. Multifocal airspace opacities within the right lung are again noted with consolidation at the right lower lobe. There are few small patchy airspace opacities within the left lung base. This likely represents a multifocal pneumonia. IMPRESSION: 1. Endotracheal tube terminates 5.4 cm from the yovanny. 2. Multifocal airspace opacities most pronounced on the right again noted. This favors a pneumonia. Chest x-ray follow-up recommended to ensure resolution. ACT 112: Negative or not required by law. Electronically signed by: Felix Cristobal M.D. 11/18/2022 5:07 PM Medications Administered Current Inpatient Medications Acetaminophen (Acetaminophen 650 Mg Supp) 650 mg WA Q6H PRN PRN Reason: Fever Stop: 12/18/22 18:29 Dexamethasone (Dexamethasone Sod Inj 4 Mg/Ml Vial) 4 mg IV Q6H RODERICK Stop: 12/18/22 17:59 Fentanyl Citrate (Fentanyl Bolus From Bag) 50 mcg IV Q60M PRN PRN Reason: Pain or Agitation Stop: 12/02/22 16:58 Last Admin: 11/18/22 17:48 Dose: 50 mcg Midazolam HCl (Versed) 125 mg in 250 mls @ 2 mls/hr IV .Q96H RODERICK; Protocol Stop: 12/18/22 16:59 Last Admin: 11/18/22 17:13 Dose: 1 mg/hr, 2 mls/hr Fentanyl Citrate (Fentanyl Citrate) 2,500 mcg in 250 mls @ 2.5 mls/hr IV .Q96H RODERICK; Protocol Stop: 12/02/22 16:59 Last Admin: 11/18/22 17:07 Dose: 25 mcg/hr, 2.5 mls/hr Norepinephrine Bitartrate (Levophed/D5w) 4 mg in 250 mls @ 0 mls/hr IV .Q0M RODERICK; Protocol Stop: 12/18/22 17:14 Last Titration: 11/18/22 17:37 Dose: 0 mcg/kg/min, 0 mls/hr Vancomycin HCl 1,500 mg/ (Sodium Chloride) 530 mls @ 200 mls/hr IV NOW ONE Stop: 11/18/22 19:56 Last Admin: 11/18/22 18:00 Dose: 200 mls/hr Cefepime HCl 2,000 mg/ Syringe 20 mls @ 5 mls/min IV Q8H RODERICK; Protocol Stop: 11/26/22 00:00 Pantoprazole Sodium 40 mg/ (Syringe) 10 mls @ 5 mls/min IV BID RODERICK Stop: 12/18/22 20:59 Potassium Chloride/Sodium Chloride (Normal Saline W/20 Meq Kcl) 20 meq in 1,000 mls @ 80 mls/hr IV .[id number] RODERICK; Protocol Stop: 12/18/22 19:14 Hydrocortisone Sodium (Succinate 100 mg/ Syringe) 2 mls @ 4 mls/min IV Q8H RODERICK Stop: 12/19/22 02:59 Vasopressin 20 units/ Sodium (Chloride) 101 mls @ 12.12 mls/hr IV .Q8H20M RODERICK Stop: 12/18/22 19:29 Midazolam HCl (Midazolam Bolus From Bag) 2 mg IV Q60M PRN PRN Reason: Sedation Stop: 12/18/22 16:58 Last Admin: 11/18/22 17:48 Dose: 2 mg Miscellaneous Information (Vancomycin Consult Active) 1 each N/A UD PRN PRN Reason: Consult Stop: 12/18/22 17:17 [place] [address] CRITICAL CARE 1ST 30-74M Additional Critical Care Time Additional 30min Critical Care Time: Yes - 59412 Patient Type New Medical Decision Making High Complexity Diagnoses Meningioma determined by biopsy of brain D32.0 Pneumonia J18.9 Septic shock A41.9; R65.21 Additional Codes Critical Care Time - Additional 30min Critical Care Time: Yes - 01416 ([id number])
[2022-11-18 19:45] LABS: iSTAT Allen Test Pass; iSTAT Art Bld Gas pCO2 Correct 39 mmHg (35-46); iSTAT Art Bld Gas pH Corrected 7.384 (7.35-7.45); iSTAT Arterial Blood Gas HCO3 24 meg/L (19-24); iSTAT Arterial Blood Gas pCO2 39 mmHg (35-46); iSTAT Arterial Blood Gas pH 7.39 (7.35-7.45); iSTAT Arterial Blood Gas pO2 175 mmHg (80-95); iSTAT Arterial Blood Gas pO2 C 176; iSTAT Carbon Dioxide 25 mmol/L (24-31); iSTAT FiO2 100 %; iSTAT Hematocrit 35 % (42-52); iSTAT Hemoglobin 11.9 g/dl (14.0-18.0); iSTAT Potassium 3.8 mmol/L (3.3-5.0); iSTAT Site R Radial; iSTAT Sodium 137 mmol/L (135-144)
--- NOTE | 2022-11-18 20:16 | Pharmacy Report ---
Pharmacy PK ABX Note - Date of Service November 18, 2022 - Assessment and Plan Assessment 67 year old M receiving CEFEPIME/VANCOMYCIN for treatment of aspiration pneumonia/septic shock with a history of a brain meningioma on Keytruda and dexamethasone. Pertinent microbiologic data includes: blood cultures pending; MRSA nares, urinary Legionella, COVID/RSV/Infuenza ordered Day # 1/?? of antimicrobial therapy. Plan Vancomycin * Loading dose: 1500 mg IV x 1 * Maintenance dose: 1000 mg IV every 12 hours starting today @2300 * Regimen is predicted to achieve target AUC/YOLIE of 400-600 mg/L.hr * Random level ordered for: 11/20/22 with AM labs or sooner based on clinical status Pharmacy will continue to follow and will adjust dose/frequency as necessary. Thank you. Pharmacy has transitioned to AUC monitoring for vancomycin. AUC/YOLIE is the preferred PK/PD target and is associated with decreased risk of nephrotoxicity compared to traditional trough targets.
[2022-11-18 20:30] LABS: Hemoglobin 12.7 g/dl (14.0-18.0); Mean Corpuscular Hemoglobin 30.4 pg (25.0-34.0); Mean Corpuscular Hgb Conc 33.4 g/dL (32.0-36.0); Mean Corpuscular Volume 90.9 fL (80.0-100.0); Mean Platelet Volume 8.7 fL (9.4-12.4); Platelet Count 308 K/uL (130-400); RDW Coefficient of Variation 14.6 % (11.5-14.5); RDW Standard Deviation 49.1 fL (36.4-46.3); Red Blood Count 4.18 M/uL (4.70-6.10); White Blood Count 12.99 K/ul (4.8-10.8)
[2022-11-18] MEDS: PANTOprazole 40 MG in SYRINGE 0 ML IV SCH (20:36)
[2022-11-18] MEDS ORDERED: diphenhydrAMINE 50 MG/ML VIAL IV STA (20:37)
--- NOTE | 2022-11-18 20:46 | Procedure Note ---
Procedure Note Date of Service November 18, 2022 Note ARTERIAL LINE PROCEDURE NOTE: Procedure: Arterial Line Placement Attending: Dr. Koroma Provider: MARCIA Martínez Indication: Monitoring on Pressors Anesthesia: Lidocaine 1% Consent was signed and placed on the chart prior to procedure. Indication, risks, and benefits were explained at length. A time-out was completed verifying correct patient, procedure, site, positioning, and implant(s) or special equipment if applicable. Allens test was performed to ensure adequate perfusion. Patients Right wrist was prepped and draped in the usual sterile fashion. Ultrasound guidance was used to aid needle placement. A 20g Arrow arterial line was introduced into the Right radial artery. Catheter was threaded, and the needle was removed with appropriate blood return. Good waveform was observed. The patient tolerated the procedure well. Confirmation of placement with ultrasound. Blood Loss: Minimal Complications: None Procedural Ultrasound Guidance: Procedure Date: 11/18/2022 Indication: Arterial line insertion Attending: Dr. Koroma Provider: MARCIA Martínez Artery Identified: YES Line confirmed in Artery with ultrasound: Yes Complications: NONE Patient tolerated procedure: WELL Coding CPT Codes Tubes, Drains, and Vasc Access - Tubes, Drains, and Vasc Access: [id number] Arterial Cath/Cannulation Sampling/Monitoring/Transfusion ([id number]) Tubes, Drains, and Vasc Access - Tubes, Drains, and Vasc Access: [id number] Ultrasound Guidance For Vascular ([id number]) [facility] [place] Procedure Codes (Charges) Tubes, Drains, and Vasc Access Procedure 1: Tubes, Drains, and Vasc Access: [id number] Arterial Cath/Cannulation Sampling/Monitoring/Transfusion Procedure 2: Tubes, Drains, and Vasc Access: [id number] Ultrasound Guidance For Vascular
--- NOTE | 2022-11-18 20:48 | Procedure Note ---
Procedure Note Date of Service November 18, 2022 Note INTERNAL JUGULAR CENTRAL LINE PROCEDURE NOTE: Procedure: Internal Jugular Central Line Placement Attending: Dr. Koroma Provider: MARCIA Martínez Indication: Central Drug Administration, Poor Venous Access, Multiple Lab Draws Necessary, etc. Anesthesia: Lidocaine 1% Consent was signed and placed on the chart prior to procedure. Indication, risks, and benefits were explained at length. A time-out was completed verifying correct patient, procedure, site, positioning, and implants(s) or special equipment if applicable. Patients Right Neck was cleansed and draped in the typical sterile fashion using Chloraprep. The Internal Jugular Vein and Carotid Artery were identified using ultrasound. The superficial tissue was anesthetized using 3 mL of 1% lidocaine without epinephrine under direct visualization with the ultrasound. After adequate anesthetization was achieved, the Internal Jugular vein was cannulated under direct ultrasound guidance using an introducer needle on a syringe. Good venous blood return was maintained prior to removal of syringe from introducer needle. Using Seldinger Technique, a guide wire was advanced through the introducer needle without resistance. The introducer needle was removed and ultrasound images were obtained of the guide wire within the Internal Jugular Vein and saved to the patients medical record. A small incision was made in penetrating fashion at the guide wire insertion site utilizing an 11 blade scalpel. The dilator was advanced to the vessel without resistance. The dilator was exchanged for the triple lumen catheter which was advanced into the vessel without resistance. The guide wire was removed intact from the catheter without issue. Claves were placed on each catheter tip with confirmation of good blood flow from each lumen. Each port was easily flushed with sterile saline. The catheter was placed at 16 cm and sutured in place. BioPatch was applied to the catheter and a sterile Tegaderm dressing was applied over the catheter with careful attention to sterility. Patient tolerated procedure well. No immediate complications were met. Post procedure x-ray was completed, placement was appropriate and no pneumothorax was noted. Images obtained are saved for permanent record Procedural Ultrasound Guidance: Procedure Date: 11/18/2022 Indication: Central venous catheter insertion Attending: Dr. Koroma Provider: MARCIA Martínez Artery AND Vein visualized: Yes Compressible Vein: Yes Guidewire or Short Catheter seen in vein prior to dilation: Yes Line confirmed in Vein with ultrasound: Yes Images obtained are saved for permanent record. Coding CPT Codes Tubes, Drains, and Vasc Access - Tubes, Drains, and Vasc Access: [id number] Insertion Of Non-tunneled Catheter Age 6 Yrs> ([id number]) Tubes, Drains, and Vasc Access - Tubes, Drains, and Vasc Access: [id number] Ultrasound Guidance For Vascular ([id number]) [facility] [place] Procedure Codes (Charges) Tubes, Drains, and Vasc Access Procedure 1: Tubes, Drains, and Vasc Access: [id number] Insertion Of Non-tunneled Catheter Age 6 Yrs> Procedure 2: Tubes, Drains, and Vasc Access: [id number] Ultrasound Guidance For Vascular
[2022-11-18 20:53] LABS: Calcium 7.7 mg/dl (8.6-10.3); Potassium 3.9 mmol/L (3.5-5.1)
[2022-11-18 20:59] LABS: BUN Creatinine Ratio 22.8 (10-20); Creatinine Clr Calc Pharmacy 81.6 ml/min; Est GFR (African American) 100.1 ml/min; Est GFR (Non-African American) 86.4 ml/min
[2022-11-18 21:01] LABS: Basophils # (auto) 0.03 K/uL (0-0.2); Basophils % (auto) 0.2 %; Eosinophils # (auto) 0.02 K/uL (0-0.50); Eosinophils % (auto) 0.2 %; Immature Granulocytes # (auto) 0.11 K/uL (0.01-0.20); Immature Granulocytes % (auto) 0.8 %; Lymphocytes # (auto) 0.44 K/uL (1.2-3.4); Lymphocytes % (auto) 3.4 %; Monocytes # (auto) 0.97 K/uL (0.11-0.59); Monocytes % (auto) 7.5 %; Neutrophils # (auto) 11.42 K/uL (1.40-6.50); Neutrophils % (auto) 87.9 %
[2022-11-18 21:17] LABS: Influenza A virus by PCR Negative (Neg); Influenza B virus by PCR Negative (Neg); RSV by PCR Negative (Neg); SARS CoV2 RNA(COVID-19) Ceph NEGATIVE (Negative)
[2022-11-18] MEDS ORDERED: IOVERSOL 350 MG 125mL Prefilled Syringe IV ONE (21:21)
[2022-11-18] MEDS ORDERED: STAT IV STA (21:26)
[2022-11-18] MEDS ORDERED: CALCIUM GLUCONATE 10% 1,000 MG in DEXTROSE 5% 50 ML IV ONE (21:30)
[2022-11-18 21:31] LABS: Troponin I High Sensitivity 9.6 pg/ml (0-20)
--- NOTE | 2022-11-18 22:15 | CT Scan Report ---
Exam(s): CTA CHEST IV Amt: 118 ML OPTIRAY 350 EXAM: CT Angiography Chest With Intravenous Contrast CLINICAL HISTORY: Reason for exam: PE. TECHNIQUE: Axial computed tomographic angiography images of the chest with intravenous contrast. CTDI is 135.87 mGy and DLP is 1513.82 mGy-cm. Automated exposure control was utilized for the study. A dose lowering technique was utilized adhering to the principles of ALARA. MIP reconstructed images were created and reviewed. COMPARISON: No relevant prior studies available. FINDINGS: Pulmonary arteries: Unremarkable. No acute pulmonary embolism. Aorta: No acute findings. No thoracic aortic aneurysm. Lungs: Airspace consolidation in the RIGHT lower lobe, and to a lesser extent RIGHT middle lobe and RIGHT upper lobe, consistent with multifocal pneumonia. Correlate for aspiration given that the patient is intubated. Atelectasis at LEFT lung base. Pleural space: Unremarkable. No significant effusion. No pneumothorax. Heart: Unremarkable. No cardiomegaly. No significant pericardial effusion. No evidence of RV dysfunction. Bones/joints: Degenerative changes of the spine. No acute fracture. No dislocation. Soft tissues: Unremarkable. Lymph nodes: Unremarkable. No enlarged lymph nodes. Tubes, lines and devices: Endotracheal tube terminates in the trachea. Feeding tube terminates in the stomach. RIGHT central venous line terminates in the SVC. IMPRESSION: 1. No acute pulmonary embolism. 2. Airspace consolidation in the RIGHT lower lobe, and to a lesser extent RIGHT middle lobe and RIGHT upper lobe, consistent with multifocal pneumonia. Correlate for aspiration given that the patient is intubated. 3. Endotracheal tube terminates in the trachea. 4. Feeding tube terminates in the stomach. Electronically signed by: Pierce Forbes MD 11/18/22 22:14 PM
--- NOTE | 2022-11-18 22:22 | CT Scan Report ---
Exam(s): CT HEAD Without Contrast EXAM: CT Head Without Intravenous Contrast CLINICAL HISTORY: Reason for exam: Meningioma, r/o mass effect. TECHNIQUE: Axial computed tomography images of the head/brain without intravenous contrast. CTDI is 135.87 mGy and DLP is 1513.82 mGy-cm. Automated exposure control was utilized for the study. A dose lowering technique was utilized adhering to the principles of ALARA. COMPARISON: No relevant prior studies available. FINDINGS: Brain: The cerebrum appears within normal limits. There is mass-effect upon the right side of the [place] from the skull base mass. No acute large vessel infarct or hemorrhage is seen. Ventricles: Mild prominence of the lateral and third ventricles. 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 There appears to be a soft tissue component extending at least 2.5 cm into the posterior fossa compressing the right side of the [place]. Previous right occipital craniotomy. Soft tissues: Unremarkable. Sinuses: Opacification of the ethmoid air cells, greater on the right than the left. Mastoid air cells: Opacification of the right mastoid air cells, partially destroyed by tumor. Nasal cavity/septum: Previous reabsorption or resection of the nasal septum and sphenoid sinuses. IMPRESSION: 1. Mild prominence of the lateral and third ventricles. No overt hydrocephalus at this time. Consider comparison to prior studies which are not currently available and/or follow-up to exclude developing hydrocephalus. The mass lesion could compress the aqueduct of [place]. 2. 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 There appears to be a soft tissue component extending at least 2.5 cm into the posterior fossa compressing the right side of the [place]. Electronically signed by: George Atwood MD 11/18/22 22:21 PM
[2022-11-18 22:58] LABS: Appearance Urine Clear (Clear); Bacteria Urine Automated Negative (Negative); Bilirubin Urine Negative (Negative); Blood Urine Negative (Negative); Cast Urine Automated 0 /lpf (0-5); Color Urine Dark Yellow; Epithelial Cell Urine Auto 20-30 /lpf (0-5); Glucose Urine UA Trace (Negative); Ketones Urine 1+ (Negative); Leukocyte Esterase Urine Negative (Negative); Nitrite Urine Negative (Negative); Protein Urine 1+ (Negative); Specific Gravity Urine > 1.045 (1.000-1.030); Urobilinogen Urine Negative (Negative); pH Urine 5.5 (4.5-7.5)
[2022-11-18] MEDS ORDERED: VANCOMYCIN HCL 1,000 MG in SODIUM CHLORIDE 0.9% 250 ML IV SCH (23:00)
[2022-11-18 23:13] LABS: Calcium Oxalate Crystals Urine Present (None Prsent); RBC Urine Automated 0-4 /hpf (0-4)
[2022-11-18] MEDS: CEFEPIME 2,000 MG in SYRINGE 0 ML IV SCH (23:35)
[2022-11-18] MEDS: LACTATED RINGER'S 1,000 ML IV SCH (23:35)
[2022-11-19] MEDS ORDERED: DEXTROSE 50% 50 ML SYRINGE IV PRN (00:36)
[2022-11-19] MEDS ORDERED: CARBOHYDRATES FOR HYPOGLYCEMIA PO PRN (00:36)
[2022-11-19] MEDS ORDERED: GLUCAGON FOR INJ 1 MG VIAL SQ PRN (00:36)
[2022-11-19] MEDS ORDERED: GLUCOSE 40% GEL 15 GM TUBE PO PRN (00:36)
[2022-11-19] MEDS ORDERED: GLUCOSE 10 TAB/TUBE PO PRN (00:36)
[2022-11-19] MEDS: INSULIN ASPART PER UNIT CHARGE SC SCH ×6 (00:54→20:48)
[2022-11-19 01:37] LABS: Adenovirus PCR Not Detected (NotDetected); Bordetella parapertussis PCR Not Detected (NotDetected); Bordetella pertussis PCR Not Detected (NotDetected); Chlamydia pneumoniae PCR Not Detected (NotDetected); Coronavirus 229E PCR Not Detected (NotDetected); Coronavirus CoV-2 (COVID19)PCR Not Detected (NotDetected); Coronavirus HKU1 PCR Not Detected (NotDetected); Coronavirus NL63 PCR Not Detected (NotDetected); Coronavirus OC43PCR Not Detected (NotDetected); Human Metapneumovirus PCR Not Detected (NotDetected); Influenza A PCR Not Detected (NotDetected); Influenza B PCR Not Detected (NotDetected); Mycoplasma pneumoniae PCR Not Detected (NotDetected); Parainfluenza Virus 1 PCR Not Detected (NotDetected); Parainfluenza Virus 2 PCR Not Detected (NotDetected); Parainfluenza Virus 3 PCR Not Detected (NotDetected); Parainfluenza Virus 4 PCR Not Detected (NotDetected); Respiratory Syncytial VirusPCR Not Detected (NotDetected); Rhinovirus/Enterovirus PCR Not Detected (NotDetected)
[2022-11-19] MEDS: NOREPINEPHRINE/D5W 4 MG/250 ML PLCT IV SCH ×4 (02:17→16:36)
[2022-11-19] MEDS: HYDROCORTISONE SOD 100 MG in SYRINGE 0 ML IV SCH ×3 (03:53→20:05)
[2022-11-19 04:15] LABS: iSTAT Art Bld Gas pCO2 Correct 33 mmHg (35-46); iSTAT Art Bld Gas pH Corrected 7.422 (7.35-7.45); iSTAT Arterial Blood Gas HCO3 22 meg/L (19-24); iSTAT Arterial Blood Gas pCO2 34 mmHg (35-46); iSTAT Arterial Blood Gas pH 7.41 (7.35-7.45); iSTAT Arterial Blood Gas pO2 79 mmHg (80-95); iSTAT Arterial Blood Gas pO2 C 75; iSTAT Carbon Dioxide 23 mmol/L (24-31); iSTAT FiO2 40 %; iSTAT Hematocrit 34 % (42-52); iSTAT Hemoglobin 11.6 g/dl (14.0-18.0); iSTAT Site Art Line; iSTAT Sodium 137 mmol/L (135-144)
[2022-11-19 05:51] LABS: Albumin Globulin Ratio 1.1 (0.9-2); Albumin Level 2.9 gm/dl (3.4-5.0); BUN Creatinine Ratio 32.4 (10-20); Bilirubin,Total 0.5 mg/dl (0.2-1.0); Calcium 8.1 mg/dl (8.6-10.3); Creatinine Clr Calc Pharmacy 101.4 ml/min; Est GFR (African American) 111.4 ml/min; Est GFR (Non-African American) 96.1 ml/min; Globulin 2.6 gm/dl (2.5-4.0); Magnesium 1.8 mg/dl (1.7-2.4); Phosphorus 2.8 mg/dl (2.5-4.9); Total Protein 5.5 gm/dl (6.0-8.3)
[2022-11-19] MEDS: MAGNESIUM SULFATE / D5W 1 GM/100 ML BAG IV SCH ×2 (06:50→08:47)
--- NOTE | 2022-11-19 07:49 | Electrocardiogram Report ---
Test Reason : Blood Pressure : / mmHG Vent. Rate : 054 BPM Atrial Rate : 054 BPM P-R Int : 136 ms QRS Dur : 088 ms QT Int : 428 ms P-R-T Axes : -86 049 033 degrees QTc Int : 405 ms Unusual P axis and short WI, probable junctional rhythm Possible Old Septal infarct Abnormal ECG When compared with ECG of 18-NOV-2022 16:27, Junctional rhythm has replaced Sinus rhythm Confirmed by Anselmo Low ([id number]) on 11/19/2022 7:49:05 AM Referred By: REFERRED SELF Confirmed By:Anselmo Low
--- NOTE | 2022-11-19 07:50 | Electrocardiogram Report ---
Test Reason : Blood Pressure : / mmHG Vent. Rate : 073 BPM Atrial Rate : 073 BPM P-R Int : 140 ms QRS Dur : 090 ms QT Int : 382 ms P-R-T Axes : 051 040 045 degrees QTc Int : 420 ms Normal sinus rhythm Borderline Criteria for Septal infarct Normal ECG When compared with ECG of 12-NOV-2011 13:39, Vent. rate has increased BY 24 BPM T wave inversion no longer evident in Inferior leads T wave amplitude has decreased in Anterolateral leads Confirmed by Anselmo Low ([id number]) on 11/19/2022 7:49:58 AM Referred By: REFERRED SELF Confirmed By:Anselmo Low
--- NOTE | 2022-11-19 08:06 | XRay Report ---
SINGLE VIEW CHEST CLINICAL HISTORY: Dyspnea. Intubation. FINDINGS: An AP, portable, upright chest radiograph is compared to study performed earlier the same d ay 11/18/2022. The examination is degraded by portable technique and apical lordotic positioning. An e ndotracheal tube is in place. The tip projects approximately 6 cm above the yovanny. An enteric tube h as been placed. The tip projects below the diaphragm over the gastric fundus. A right internal jugula r central venous catheter has been placed. The tip projects over the SVC. The cardiomediastinal silho uette is top normal for projection. Multifocal airspace consolidation is again seen throughout the ri ght lung, greatest at the right lung base. There is volume loss in the right lung with elevation of t he right hemidiaphragm. The left lung appears clear noting basilar atelectasis. No large pleural effu crispin or pneumothorax is seen. The skeletal structures are osteopenic. The bony thorax is grossly inta ct. IMPRESSION: 1. Lines and tubes as above. 2. Multifocal airspace consolidation is again seen throughout the right lung. Radiographic follow-up to resolution is recommended. ACT 112: Negative or not required by law. Electronically signed by: Louie Bailey M.D. 11/19/2022 8:05 AM
[2022-11-19] MEDS: LACTATED RINGER'S 1,000 ML IV SCH ×2 (08:24→16:34)
[2022-11-19] MEDS: PANTOprazole 40 MG in SYRINGE 0 ML IV SCH ×2 (08:30→20:05)
[2022-11-19] MEDS: CEFEPIME 2,000 MG in SYRINGE 0 ML IV SCH ×2 (08:30→16:34)
--- NOTE | 2022-11-19 08:37 | XRay Report ---
XR chest 1V portable HISTORY: Respiratory failure. COMPARISON: Chest CTA 11/18/2022. FINDINGS: The feeding tube is curled within the stomach. The endotracheal tube terminates 5.8 cm from the yovanny. This is similar to the prior study. A right jugular central venous catheter terminates i n the SVC. No pneumothorax. No pleural effusions. Slight improved aeration within the multifocal righ t lung airspace opacities. IMPRESSION: 1. Satisfactory support line placement. 2. Slight improved aeration within the multifocal right lung airspace opacities. ACT 112: Negative or not required by law. Electronically signed by: Felix Cristobal M.D. 11/19/2022 8:36 AM
[2022-11-19 09:13] LABS: Hematocrit (blood only) 35.5 % (42.0-52.0); Mean Corpuscular Hemoglobin 30.5 pg (25.0-34.0); Mean Corpuscular Hgb Conc 33.8 g/dL (32.0-36.0); Mean Corpuscular Volume 90.3 fL (80.0-100.0); Mean Platelet Volume 8.9 fL (9.4-12.4); Platelet Count 308 K/uL (130-400); RDW Coefficient of Variation 14.6 % (11.5-14.5); RDW Standard Deviation 48.7 fL (36.4-46.3); Red Blood Count 3.93 M/uL (4.70-6.10); White Blood Count 11.75 K/ul (4.8-10.8)
[2022-11-19] MEDS: fentaNYL BOLUS from BAG IV PRN (09:20)
--- NOTE | 2022-11-19 10:56 | Critical Care Progress Note ---
Date of Service November 19, 2022 Assessment & Plan (1) Meningioma determined by biopsy of brain: Plan: The patient was stabilized overnight. He initially was on very high doses of Levophed and the concern was worsening septic shock that could have led to . Vasopressin was initiated but he did not tolerate it with very high blood pressure and then bradycardic and resolved with discontinuation. He was given IV hydrocortisone for stress doses because he is on the dexamethasone for his brain tumor. But he settled out overnight and actually came down to 0.05 of Levophed per kilogram. With some sedation he needed to go up to 0.07. But that still acceptable in terms of starting some enteral nutrition. In reviewing of his chest x-ray there was significant right lower lung infiltrate which did clear and has much better aeration with positive pressure ventilation at this time and with antibiotic exposure. His head CT scan on the other hand shows dramatic destruction of bony infiltration into the ethmoid sphenoid and even the occipital bone as well as now the temporal bone. There is another posterior fossa mass that is abutting the ashkan concerned about obstructing the sylvian duct. But there is no hydrocephalus at this time. In general, I do not want to extubate him today as he was just intubated. We will try to get his ventilator settings down to a reasonable level of at least 5 of PEEP. But he does wake up and interact with a spontaneous awakening trial. 1. Neuropsych: Fortunately, there is no sign of active herniation though it is likely a matter of time until he is going to develop some severe hydrocephalus. Obviously this is an extremely aggressive tumor at this point eroding much of his bony structures. We are interested in allowing him to wake up and see whether or not he can sign a healthcare proxy and we can witness that for him. The change of signing of his new will will have to wait until he is extubated. No sign of seizure at this time. 2. Cardiovascular: Shock likely sepsis in etiology from an aspiration pneumonia that was witnessed. He is symptom much improving, we did not want to excessively hydrate him for fear of inducing cerebral edema and herniation. He remains on IV hydrocortisone for stress doses while he is still critically ill. 3. Respiratory: He remains on mechanical ventilation with reasonable settings. This morning he was on 8 of PEEP. We will try to sequentially decrease to at least 5 even if it means going up on the FiO2 bit. A repeat chest x-ray this morning shows much improved aeration in the right lower lung. We are waiting for a sputum culture and Legionella urinary antigens. The COVID RSV and flu are negative. With MRSA negative we will continue with cefepime. With antibiotics his white count has come down from 13-11.75. Today's blood gas in the morning was 7.41/PCO2 30/PO2 of 79. 4. GI: We will we will start him on some enteral feeds with his pressor requirements are being reasonable at this time. He is also on IV Protonix. No sign of GI bleed. 5. Renal/electrolytes: Right now he has normal renal function and is making good urine. We are repleting his magnesium and will keep an eye on his potassium. Calcium corrects to normal. He has a Melendez catheter in place. 6. ID: Cefepime seems to be sufficient at this point. Again, vancomycin was discontinued with a negative MRSA with a high correlation for reflection of whether or not there is a MRSA pneumonia. Blood cultures and sputum culture are pending. His procalcitonin was elevated at 1.73 consistent with a bacterial pneumonia. 7. Heme: With improvement of his white count his CBC is quite reasonable. We do not want to give him chemical DVT prophylaxis given the extent of the tumor in his brain and risk of intracerebral bleed. He is on compression devices peripherally. 8. Endocrine: I would continue with the dexamethasone 4 mg as a anti- inflammatory while the hydrocortisone will be given for blood pressure support as more mineralocorticoid. We will follow his insulin for sliding scale with this amount of steroids. Lines: 7.5 endotracheal tube, OG tube, right triple-lumen IV, Melendez, peripheral IVs, right radial A-line. Prophylaxis: Protonix and Venodyne boots. (2) Pneumonia: (3) Melanoma of eye: (4) Respiratory failure: Admission and Anticipated Discharge Date Admission Date: November 18, 2022 Subjective The patient is not able to provide review of systems because he is intubated and sedated. Physical Exam Physical Exam: The patient is on mechanical ventilation. He does occasionally move his arm spontaneously. Right pupil is dilated and minimally reactive but not fixed in the mid position and not changed from yesterday left pupil is more pinpoint and also minimally reactive. Sclera is nonicteric neck is supple without adenopathy lungs are rhonchorous on the right and diminished breath sounds bilaterally heart is regular rate and rhythm without murmurs of the gallops abdomen is soft nontender without apparent splenomegaly extremities without clubbing cyanosis or edema. Results & Data Results & Data Vital Signs (Past 12 Hours) Vital Signs Temp Pulse Resp BP Pulse Ox FiO2 11/19/22 10:25 63 18 95 40 11/19/22 08:00 51 L 118/62 11/19/22 08:00 51 L 11/19/22 07:07 61 19 93 40 11/19/22 06:00 36.5 C 59 L 19 93 11/19/22 05:55 116/71 11/19/22 05:55 36.5 C 59 L 21 93 11/19/22 05:50 36.5 C 58 L 23 93 11/19/22 05:50 118/69 11/19/22 05:45 36.5 C 58 L 18 93 11/19/22 05:45 120/71 11/19/22 05:40 36.5 C 58 L 16 93 11/19/22 05:40 122/69 11/19/22 05:35 115/72 11/19/22 05:35 36.5 C 58 L 18 93 11/19/22 05:30 36.5 C 57 L 18 93 11/19/22 05:30 121/71 11/19/22 05:25 116/72 11/19/22 05:25 36.5 C 58 L 18 93 11/19/22 05:20 36.5 C 56 L 18 93 11/19/22 05:20 115/72 11/19/22 05:15 36.4 C L 56 L 18 92 11/19/22 05:15 116/69 11/19/22 05:10 36.4 C L 56 L 16 92 11/19/22 05:10 115/70 11/19/22 05:05 117/68 11/19/22 05:05 36.4 C L 56 L 18 92 11/19/22 05:00 36.4 C L 53 L 18 94 11/19/22 05:00 113/65 11/19/22 04:55 111/66 11/19/22 04:55 36.4 C L 54 L 16 94 11/19/22 04:50 36.4 C L 53 L 18 94 11/19/22 04:50 109/65 11/19/22 04:45 109/67 11/19/22 04:45 36.4 C L 53 L 18 94 11/19/22 04:40 36.3 C L 53 L 16 94 11/19/22 04:40 107/66 11/19/22 04:35 113/68 11/19/22 04:35 36.3 C L 52 L 18 94 11/19/22 04:30 36.3 C L 53 L 18 94 11/19/22 04:30 106/66 11/19/22 04:25 112/66 11/19/22 04:25 36.3 C L 53 L 16 94 11/19/22 04:20 36.2 C L 52 L 18 94 11/19/22 04:20 110/68 11/19/22 04:15 113/68 11/19/22 04:15 36.2 C L 52 L 18 95 11/19/22 04:10 36.2 C L 51 L 16 98 11/19/22 04:10 120/73 11/19/22 04:05 36.2 C L 53 L 16 95 11/19/22 04:05 115/72 11/19/22 04:00 36.2 C L 53 L 20 94 11/19/22 04:00 103/67 11/19/22 03:55 107/67 11/19/22 04:00 40 11/19/22 04:22 53 L 18 95 40 11/18/22 23:45 57 L 20 98 70 11/19/22 00:00 40 11/19/22 00:00 52 L 11/18/22 22:50 117/71 11/18/22 22:50 36.7 C 52 L 17 96 11/18/22 22:45 36.8 C 50 L 20 96 11/18/22 22:45 123/75 Laboratory Results Laboratory Results WBC 11.75 K/ul (4.8-10.8) H 11/19/22 05:07 RBC 3.93 M/uL (4.70-6.10) L 11/19/22 05:07 Hgb 12.0 g/dl (14.0-18.0) L 11/19/22 05:07 POC Hgb 11.6 g/dl (14.0-18.0) L 11/19/22 04:01 Hct 35.5 % (42.0-52.0) L 11/19/22 05:07 POC Hct 34 % (42-52) L 11/19/22 04:01 MCV 90.3 fL (80.0-100.0) 11/19/22 05:07 MCH 30.5 pg (25.0-34.0) 11/19/22 05:07 MCHC 33.8 g/dL (32.0-36.0) 11/19/22 05:07 RDW Std Deviation 48.7 fL (36.4-46.3) H 11/19/22 05:07 RDW Coeff of Chhaya 14.6 % (11.5-14.5) H 11/19/22 05:07 Plt Count 308 K/uL (130-400) 11/19/22 05:07 MPV 8.9 fL (9.4-12.4) L 11/19/22 05:07 Immature Gran % (Auto) 0.8 % 11/18/22 20:15 Neut % (Auto) 87.9 % 11/18/22 20:15 Lymph % (Auto) 3.4 % 11/18/22 20:15 [place] % (Auto) 7.5 % 11/18/22 20:15 Eos % (Auto) 0.2 % 11/18/22 20:15 Baso % (Auto) 0.2 % 11/18/22 20:15 Neut # (Auto) 11.42 K/uL (1.40-6.50) H 11/18/22 20:15 Lymph # (Auto) 0.44 K/uL (1.2-3.4) L 11/18/22 20:15 [place] # (Auto) 0.97 K/uL (0.11-0.59) H 11/18/22 20:15 Eos # (Auto) 0.02 K/uL (0-0.50) 11/18/22 20:15 Baso # (Auto) 0.03 K/uL (0-0.2) 11/18/22 20:15 Immature Gran # (Auto) 0.11 K/uL (0.01-0.20) 11/18/22 20:15 Dohle Bodies 2+ 11/18/22 16:49 Sample Site Art Line 11/19/22 04:01 POC pH 7.41 (7.35-7.45) 11/19/22 04:01 POC pCO2 34 mmHg (35-46) L 11/19/22 04:01 POC pO2 79 mmHg (80-95) L 11/19/22 04:01 POC HCO3 22 jose juan/L (19-24) 11/19/22 04:01 POC Total CO2 23 mmol/L (24-31) L 11/19/22 04:01 POC Base Excess -3.0 jose juan/L (-9-1.8) 11/19/22 04:01 ABG pH (Temp Correct) 7.422 (7.35-7.45) 11/19/22 04:01 ABG pCO2 (Temp Corrct 33 mmHg (35-46) L 11/19/22 04:01 POC ABG pO2 at Pt Temp 75 11/19/22 04:01 POC ABG O2 Sat 96.0 % (90-95) H 11/19/22 04:01 Seb Test NA 11/19/22 04:01 VBG pH 7.46 (7.36-7.41) H 11/18/22 16:49 VBG pCO2 40 mmHg (38-50) 11/18/22 16:49 VBG pO2 58 mmHg 11/18/22 16:49 VBG HCO3 28 mmol/L 11/18/22 16:49 VBG O2 Saturation 89.2 % 11/18/22 16:49 VBG Base Excess 4.2 mEq/L 11/18/22 16:49 O2 Delivery Device Ventilator 11/19/22 04:01 POC O2 Rate 20 11/19/22 04:01 POC FiO2 40 % 11/19/22 04:01 Tidal Volume 480 11/19/22 04:01 PEEP 8 11/19/22 04:01 POC Sodium 137 mmol/L (135-144) 11/19/22 04:01 Sodium 136 mmol/L (136-145) 11/19/22 05:07 POC Potassium 4.0 mmol/L (3.3-5.0) 11/19/22 04:01 Potassium 4.0 mmol/L (3.5-5.1) 11/19/22 05:07 POC Chloride 101 mmol/L (101-112) 11/18/22 16:54 Chloride 108 mmol/L (98-107) H 11/19/22 05:07 Carbon Dioxide 23 mmol/L (21-32) 11/19/22 05:07 POC Total CO2 23 mmol/L (24-31) L 11/18/22 16:54 Anion Gap 5 (3-11) 11/19/22 05:07 POC Anion Gap 19.0 mmol/L (16-25) 11/18/22 16:54 POC BUN 18 mg/dl (7-18) 11/18/22 16:54 BUN 24 mg/dl (6-23) H 11/19/22 05:07 Creatinine 0.74 mg/dl (0.6-1.4) 11/19/22 05:07 POC Creatinine 0.8 mg/dl (0.6-1.3) 11/18/22 16:54 Est Cr Clr Drug Dosing 101.4 ml/min 11/19/22 05:07 Est GFR ( Amer) 111.4 ml/min 11/19/22 05:07 Est GFR (Non-Af Amer) 96.1 ml/min 11/19/22 05:07 BUN/Creatinine Ratio 32.4 (10-20) H 11/19/22 05:07 Glucose 161 mg/dl (70-99(Fasting)) H 11/19/22 05:07 POC Glucose (other) 159 mg/dl (70-99) H 11/19/22 08:16 Lactate 1.3 mmol/L (0.4-2.0) 11/18/22 20:15 Calcium 8.1 mg/dl (8.6-10.3) L 11/19/22 05:07 POC Ioniz Calcium Leonides 1.11 mmol/l (1.12-1.32) L 11/18/22 16:54 Phosphorus 2.8 mg/dl (2.5-4.9) 11/19/22 05:07 Magnesium 1.8 mg/dl (1.7-2.4) 11/19/22 05:07 Total Bilirubin 0.5 mg/dl (0.2-1.0) 11/19/22 05:07 AST 9 U/L (13-39) L 11/19/22 05:07 ALT 10 U/L (7-52) 11/19/22 05:07 Alkaline Phosphatase 53 U/L (34-104) 11/19/22 05:07 Troponin I High Sens 9.6 pg/ml (0-20) D 11/18/22 20:15 Total Protein 5.5 gm/dl (6.0-8.3) L 11/19/22 05:07 Albumin 2.9 gm/dl (3.4-5.0) L 11/19/22 05:07 Globulin 2.6 gm/dl (2.5-4.0) 11/19/22 05:07 Albumin/Globulin Ratio 1.1 (0.9-2) 11/19/22 05:07 Lipase 3 U/L (11-82) L 11/18/22 16:49 Procalcitonin 1.73 ng/ml (0-0.5) H 11/18/22 20:14 Random Cortisol 13.84 mcg/dl 11/18/22 20:15 Urine Color Dark Yellow 11/18/22 22:30 Urine Appearance Clear (Clear) 11/18/22 22:30 Urine pH 5.5 (4.5-7.5) 11/18/22 22:30 Ur Specific Donald > 1.045 (1.000-1.030) H 11/18/22 22:30 Urine Protein 1+ (Negative) H 11/18/22 22:30 Urine Glucose (UA) Trace (Negative) H 11/18/22 22:30 Urine Ketones 1+ (Negative) H 11/18/22 22:30 Urine Blood Negative (Negative) 11/18/22 22:30 Urine Nitrite Negative (Negative) 11/18/22 22:30 Urine Bilirubin Negative (Negative) 11/18/22 22:30 Urine Urobilinogen Negative (Negative) 11/18/22 22:30 Ur Leukocyte Esterase Negative (Negative) 11/18/22 22:30 Urine WBC (Auto) 1-5 /hpf (0-5) 11/18/22 22:30 Urine RBC (Auto) 0-4 /hpf (0-4) 11/18/22 22:30 U Hyaline Cast (Auto) 0 /lpf (0-5) 11/18/22 22:30 U Epithel Cells (Auto) 20-30 /lpf (0-5) H 11/18/22 22:30 Urine Bacteria (Auto) Negative (Negative) 11/18/22 22:30 Calcium Oxalate Crystal Present (None Prsent) A 11/18/22 22:30 Urine Sperm Not Reportable 11/18/22 22:30 Nasal Screen MRSA (PCR) Negative (Negative) 11/18/22 20:24 Adenovirus (PCR) Not Detected (NotDetected) 11/18/22 20:24 B. pertussis DNA (PCR) Not Detected (NotDetected) 11/18/22 20:24 B.parapertussis DNA PCR Not Detected (NotDetected) 11/18/22 20:24 C. pneumoniae DNA (PCR) Not Detected (NotDetected) 11/18/22 20:24 Coronavirus OC43 (PCR) Not Detected (NotDetected) 11/18/22 20:24 Coronavirus HKU1 (PCR) Not Detected (NotDetected) 11/18/22 20:24 Coronavirus 229E (PCR) Not Detected (NotDetected) 11/18/22 20:24 SARS-CoV-2 (PCR) NEGATIVE (Negative) 11/18/22 20:24 SARS-CoV-2 (PCR) Not Detected (NotDetected) 11/18/22 20:24 Coronavirus NL63 (PCR) Not Detected (NotDetected) 11/18/22 20:24 Human Metapneumovir PCR Not Detected (NotDetected) 11/18/22 20:24 Influenza Type A (PCR) Negative (Neg) 11/18/22 20:24 Influenza Type A (PCR) Not Detected (NotDetected) 11/18/22 20:24 Influenza Type B (PCR) Negative (Neg) 11/18/22 20:24 Influenza Type B (PCR) Not Detected (NotDetected) 11/18/22 20:24 M. pneumoniae (PCR) Not Detected (NotDetected) 11/18/22 20:24 Parainfluenza 1 (PCR) Not Detected (NotDetected) 11/18/22 20:24 Parainfluenza 2 (PCR) Not Detected (NotDetected) 11/18/22 20:24 Parainfluenza 3 (PCR) Not Detected (NotDetected) 11/18/22 20:24 Parainfluenza 4 (PCR) Not Detected (NotDetected) 11/18/22 20:24 RSV (RT-PCR) Negative (Neg) 11/18/22 20:24 RSV (PCR) Not Detected (NotDetected) 11/18/22 20:24 Entero/Rhino (PCR) Not Detected (NotDetected) 11/18/22 20:[address] 11/18/22 18:25 Exam(s): CT HEAD Without Contrast EXAM: CT Head Without Intravenous Contrast CLINICAL HISTORY: Reason for exam: Meningioma, r/o mass effect. TECHNIQUE: Axial computed tomography images of the head/brain without intravenous contrast. CTDI is 135.87 mGy and DLP is 1513.82 mGy-cm. Automated exposure control was utilized for the study. A dose lowering technique was utilized adhering to the principles of ALARA. COMPARISON: No relevant prior studies available. FINDINGS: Brain: The cerebrum appears within normal limits. There is mass-effect upon the right side of the [place] from the skull base mass. No acute large vessel infarct or hemorrhage is seen. Ventricles: Mild prominence of the lateral and third ventricles. 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 There appears to be a soft tissue component extending at least 2.5 cm into the posterior fossa compressing the right side of the [place]. Previous right occipital craniotomy. Soft tissues: Unremarkable. Sinuses: Opacification of the ethmoid air cells, greater on the right than the left. Mastoid air cells: Opacification of the right mastoid air cells, partially destroyed by tumor. Nasal cavity/septum: Previous reabsorption or resection of the nasal septum and sphenoid sinuses. IMPRESSION: 1. Mild prominence of the lateral and third ventricles. No overt hydrocephalus at this time. Consider comparison to prior studies which are not currently available and/or follow-up to exclude developing hydrocephalus. The mass lesion could compress the aqueduct of [place]. 2. 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 There appears to be a soft tissue component extending at least 2.5 cm into the posterior fossa compressing the right side of the [place]. Electronically signed by: George Atwood MD 11/18/22 22:21 PM Chest CTA 11/18/22 19:30 Exam(s): CTA CHEST IV Amt: 118 ML OPTIRAY 350 EXAM: CT Angiography Chest With Intravenous Contrast CLINICAL HISTORY: Reason for exam: PE. TECHNIQUE: Axial computed tomographic angiography images of the chest with intravenous contrast. CTDI is 135.87 mGy and DLP is 1513.82 mGy-cm. Automated exposure control was utilized for the study. A dose lowering technique was utilized adhering to the principles of ALARA. MIP reconstructed images were created and reviewed. COMPARISON: No relevant prior studies available. FINDINGS: Pulmonary arteries: Unremarkable. No acute pulmonary embolism. Aorta: No acute findings. No thoracic aortic aneurysm. Lungs: Airspace consolidation in the RIGHT lower lobe, and to a lesser extent RIGHT middle lobe and RIGHT upper lobe, consistent with multifocal pneumonia. Correlate for aspiration given that the patient is intubated. Atelectasis at LEFT lung base. Pleural space: Unremarkable. No significant effusion. No pneumothorax. Heart: Unremarkable. No cardiomegaly. No significant pericardial effusion. No evidence of RV dysfunction. Bones/joints: Degenerative changes of the spine. No acute fracture. No dislocation. Soft tissues: Unremarkable. Lymph nodes: Unremarkable. No enlarged lymph nodes. Tubes, lines and devices: Endotracheal tube terminates in the trachea. Feeding tube terminates in the stomach. RIGHT central venous line terminates in the SVC. IMPRESSION: 1. No acute pulmonary embolism. 2. Airspace consolidation in the RIGHT lower lobe, and to a lesser extent RIGHT middle lobe and RIGHT upper lobe, consistent with multifocal pneumonia. Correlate for aspiration given that the patient is intubated. 3. Endotracheal tube terminates in the trachea. 4. Feeding tube terminates in the stomach. Electronically signed by: Pierce Forbes MD 11/18/22 22:14 PM Chest X-Ray 11/19/22 07:00 XR chest 1V portable HISTORY: Respiratory failure. COMPARISON: Chest CTA 11/18/2022. FINDINGS: The feeding tube is curled within the stomach. The endotracheal tube terminates 5.8 cm from the yovanny. This is similar to the prior study. A right jugular central venous catheter terminates in the SVC. No pneumothorax. No pleural effusions. Slight improved aeration within the multifocal right lung airspace opacities. IMPRESSION: 1. Satisfactory support line placement. 2. Slight improved aeration within the multifocal right lung airspace opacities. ACT 112: Negative or not required by law. Electronically signed by: Felix Cristobal M.D. 11/19/2022 8:36 AM Medications Administered Current Inpatient Medications Acetaminophen (Acetaminophen 650 Mg Supp) 650 mg OR Q6H PRN PRN Reason: Fever Stop: 12/18/22 18:29 Dexamethasone (Dexamethasone Sod Inj 4 Mg/Ml Vial) 4 mg IV Q6H [facility] Stop: 12/18/22 17:59 Last Admin: 11/18/22 22:25 Dose: Not Given Dextrose (Dextrose 50% 50 Ml Syringe) 25 - 50 ml IV UD PRN; Protocol PRN Reason: Hypoglycemia Protocol Stop: 12/19/22 00:35 Fentanyl Citrate (Fentanyl Bolus From Bag) 50 mcg IV Q60M PRN PRN Reason: Pain or Agitation Stop: 12/02/22 16:58 Last Admin: 11/18/22 20:30 Dose: 50 mcg Glucagon (Glucagon For Inj 1 Mg Vial) 1 mg SQ UD PRN; Protocol PRN Reason: Hypoglycemia Protocol Stop: 12/19/22 00:35 Glucose (Glucose 10 Tab/Tube) 4 - 8 tab PO UD PRN; Protocol PRN Reason: Hypoglycemia Treatment Stop: 12/19/22 00:35 Glucose (Glucose 40% Gel 15 Gm Tube) 15 - 30 gm PO UD PRN; Protocol PRN Reason: Hypoglycemia Protocol Stop: 12/19/22 00:35 Midazolam HCl (Versed) 125 mg in 250 mls @ 4 mls/hr IV .[id number] [facility]; Protocol Stop: 12/18/22 16:59 Last Titration: 11/19/22 07:11 Dose: 2 mg/hr, 4 mls/hr Fentanyl Citrate (Fentanyl Citrate) 2,500 mcg in 250 mls @ 2.5 mls/hr IV .Q96H [facility]; Protocol Stop: 12/02/22 16:59 Last Titration: 11/19/22 07:11 Dose: 25 mcg/hr, 2.5 mls/hr Norepinephrine Bitartrate (Levophed/D5w) 4 mg in 250 mls @ 13.819 mls/hr IV .Q18H6M [facility]; Protocol Stop: 12/18/22 17:14 Last Titration: 11/19/22 07:11 Dose: 0.05 mcg/kg/min, 13.8 mls/hr Cefepime HCl 2,000 mg/ Syringe 20 mls @ 5 mls/min IV Q8H [facility]; Protocol Stop: 11/26/22 00:00 Last Admin: 11/19/22 08:30 Dose: 5 mls/min Pantoprazole Sodium 40 mg/ (Syringe) 10 mls @ 5 mls/min IV BID [facility] Stop: 12/18/22 20:59 Last Admin: 11/19/22 08:30 Dose: 5 mls/min Hydrocortisone Sodium (Succinate 100 mg/ Syringe) 2 mls @ 4 mls/min IV Q8H [facility] Stop: 12/19/22 02:59 Last Admin: 11/19/22 03:53 Dose: 4 mls/min Lactated Ringer's (Lr) 1,000 mls @ 125 mls/hr IV .Q8H [facility] Stop: 12/18/22 22:44 Last Admin: 11/19/22 08:24 Dose: 125 mls/hr Insulin Aspart (Insulin Aspart Per Unit Charge) 0 units SC Q4 [facility] Stop: 12/19/22 00:44 Last Admin: 11/19/22 08:28 Dose: Not Given Midazolam HCl (Midazolam Bolus From Bag) 2 mg IV Q60M PRN PRN Reason: Sedation Stop: 12/18/22 16:58 Last Admin: 11/18/22 17:48 Dose: 2 mg Miscellaneous (Carbohydrates For Hypoglycemia ) 15 - 30 gm PO UD PRN PRN Reason: Hypoglycemia Protocol Stop: 12/19/22 00:35 Coding Level of Care Code 95522 CRITICAL CARE 1ST 30-74M History Comprehensive Exam Comprehensive Medical Decision Making High Complexity Diagnoses Meningioma determined by biopsy of brain D32.0 Pneumonia J18.9 Melanoma of eye C69.90 Respiratory failure J96.90 Time Spent (min) 60
--- NOTE | 2022-11-19 10:58 | XRay Report ---
XR chest 1V portable HISTORY: 67 years-old Male hypercarbic respiratory failure acute respiratory failure COMPARISON: 11/19/2022 TECHNIQUE: AP view of the chest FINDINGS: Cardiac silhouette is enlarged. Endotracheal tube overlies the midline, 3.9 cm superior to the yovanny . IJ central venous catheter noted with distal tip in expected location of the mid SVC. Distal tip of the enteric tube projects superiorly over the gastric fundus. The patient is mildly rotated. No pneumothorax or large pleural effusion. Multifocal right lung promi nent airspace opacities are stable. Bones appear grossly intact. IMPRESSION: 1. Lines and tubes as above. 2. No pneumothorax. 3. Stable multifocal right lung airspace opacities. ACT 112: Negative or not required by law. The above report was generated using voice recognition software. It may contain grammatical, syntax o r spelling errors. Electronically signed by: Leo Law M.D. 11/19/2022 10:56 AM
[2022-11-19] MEDS ORDERED: PEPTAMEN 1.5 CAL 1,000 ML BAG OG SCH (12:00)
[2022-11-19] MEDS: dexAMETHasone 4 MG in SYRINGE 0 ML IV SCH ×2 (12:02→16:35)
[2022-11-19] MEDS: TUBE FEEDING WATER FLUSH OG SCH ×3 (12:05→20:06)
--- NOTE | 2022-11-19 12:29 | Hospitalist Progress Note ---
Date of Service November 19, 2022 Assessment & Plan (1) Septic shock: (2) Pneumonia: Plan: Secondary to multifocal pneumonia/aspiration pneumonia. Presented to the ED with shortness of breath. Intubated in the ED for acute hypoxic respite failure and septic shock. Chest x-ray on admission personally reviewed; multifocal airspace opacities more pronounced on the right. Subsequent chest x-ray reviewed as well; multifocal areas opacities present. MRSA nares negative Continue ventilator support Continue hemodynamic support with vasopressors; wean as tolerated. Also on normal saline at 125 cc/h. Continue on antibiotics with cefepime. Also on stress dose steroids. Rest per ICU. (3) Meningioma determined by biopsy of brain: Plan: Meningioma initial diagnosis 2015, Has been on Keytruda and also dexamethasone [address] head on admission showed large destructive mass lesion in base of skull extending into temporal bone. Appeared to have soft tissue component extending at least 2.5 cm into posterior fossa compressing right side of the [place]. Was initially in hospice status He was evaluated for hospice management at home on Tuesday Decided to come to [place] for continued hospice care Condition got worse this morning but mentioned that he wants to have full resuscitation with available resources including feeding tube if needed for his condition Plan Full code DVT prophylaxis SCDs Please note the above document was generated using voice recognition software. It may contain grammatical, syntax or spelling errors. Any formal questions or concerns about the content, text or information contained within the body of this dictation should be directly addressed to the provider for clarification Admission and Anticipated Discharge Date Admission Date: November 18, 2022 Subjective Patient intubated and sedated. He is currently on Levophed only. Mechanically ventilated. Review of Systems Review of Systems: Unobtainable due to endotracheal tube Physical Exam Physical Exam: Constitutional: Intubated, sedated. Respiratory: Bilateral mechanical breath sound Cardiovascular: RRR, no murmur, no edema Vessels: no JVD or carotid bruit Chest: normal inspection of chest Abdomen: Soft, bowel sounds present. Musculoskeletal: no cyanosis or clubbing. Skin: no rashes, warm and dry normal turgor Neurologic: Moves right arm spontaneously. Psychiatric: Sedated Results & Data Results & Data Vital Signs (Past 12 Hours) Vital Signs Temp Pulse Resp BP Pulse Ox O2 Del Method FiO2 11/19/22 11:30 36.5 C 50 L 18 95 40 07/28/23 11:00 36.5 C 51 L 18 94 11/19/22 11:00 118/67 11/19/22 10:30 36.5 C 51 L 18 95 11/19/22 10:00 36.6 C 51 L 18 95 11/19/22 10:00 121/70 11/19/22 09:30 36.6 C 53 L 18 95 11/19/22 09:00 36.6 C 57 L 19 95 11/19/22 09:00 117/63 11/19/22 08:30 36.7 C 54 L 19 95 11/19/22 08:00 36.6 C 58 L 19 93 11/19/22 08:00 111/66 11/19/22 07:50 109/65 11/19/22 07:50 36.6 C 57 L 21 93 11/19/22 07:45 105/65 11/19/22 07:45 36.6 C 57 L 19 93 11/19/22 07:40 100/62 11/19/22 07:40 36.6 C 57 L 17 93 11/19/22 07:35 108/65 11/19/22 07:35 36.6 C 57 L 18 93 11/19/22 07:30 36.6 C 57 L 21 93 11/19/22 07:30 106/64 11/19/22 07:25 36.6 C 57 L 18 93 11/19/22 07:25 106/65 11/19/22 07:20 102/62 11/19/22 07:20 36.6 C 57 L 18 93 11/19/22 07:15 109/64 11/19/22 07:15 36.6 C 58 L 18 93 11/19/22 07:10 36.6 C 57 L 18 94 11/19/22 07:10 108/66 11/19/22 07:05 103/67 11/19/22 07:05 36.6 C 61 18 93 11/19/22 07:00 36.6 C 61 17 93 40 11/19/22 07:00 106/65 11/19/22 10:25 63 18 95 40 11/19/22 08:00 Mechanical Vent 11/19/22 08:00 51 L 118/62 11/19/22 08:00 51 L 11/19/22 07:07 61 19 93 40 11/19/22 06:00 36.5 C 59 L 19 93 11/19/22 05:55 116/71 11/19/22 05:55 36.5 C 59 L 21 93 11/19/22 05:50 36.5 C 58 L 23 93 11/19/22 05:50 118/69 11/19/22 05:45 36.5 C 58 L 18 93 11/19/22 05:45 120/71 11/19/22 05:40 36.5 C 58 L 16 93 11/19/22 05:40 122/69 11/19/22 05:35 115/72 11/19/22 05:35 36.5 C 58 L 18 93 11/19/22 05:30 36.5 C 57 L 18 93 11/19/22 05:30 121/71 11/19/22 05:25 116/72 11/19/22 05:25 36.5 C 58 L 18 93 11/19/22 05:20 36.5 C 56 L 18 93 11/19/22 05:20 115/72 11/19/22 05:15 36.4 C L 56 L 18 92 11/19/22 05:15 116/69 11/19/22 05:10 36.4 C L 56 L 16 92 11/19/22 05:10 115/70 11/19/22 05:05 117/68 11/19/22 05:05 36.4 C L 56 L 18 92 11/19/22 05:00 36.4 C L 53 L 18 94 11/19/22 05:00 113/65 11/19/22 04:55 111/66 11/19/22 04:55 36.4 C L 54 L 16 94 11/19/22 04:50 36.4 C L 53 L 18 94 11/19/22 04:50 109/65 11/19/22 04:45 109/67 11/19/22 04:45 36.4 C L 53 L 18 94 11/19/22 04:40 36.3 C L 53 L 16 94 11/19/22 04:40 107/66 11/19/22 04:35 113/68 11/19/22 04:35 36.3 C L 52 L 18 94 11/19/22 04:30 36.3 C L 53 L 18 94 11/19/22 04:30 106/66 11/19/22 04:25 112/66 11/19/22 04:25 36.3 C L 53 L 16 94 11/19/22 04:20 36.2 C L 52 L 18 94 11/19/22 04:20 110/68 11/19/22 04:15 113/68 11/19/22 04:15 36.2 C L 52 L 18 95 11/19/22 04:10 36.2 C L 51 L 16 98 11/19/22 04:10 120/73 11/19/22 04:05 36.2 C L 53 L 16 95 11/19/22 04:05 115/72 11/19/22 04:00 36.2 C L 53 L 20 94 11/19/22 04:00 103/67 11/19/22 03:55 107/67 11/19/22 04:00 40 11/19/22 04:22 53 L 18 95 40 Laboratory Results Laboratory Results WBC 11.75 K/ul (4.8-10.8) H 11/19/22 05:07 RBC 3.93 M/uL (4.70-6.10) L 11/19/22 05:07 Hgb 12.0 g/dl (14.0-18.0) L 11/19/22 05:07 POC Hgb 11.6 g/dl (14.0-18.0) L 11/19/22 04:01 Hct 35.5 % (42.0-52.0) L 11/19/22 05:07 POC Hct 34 % (42-52) L 11/19/22 04:01 MCV 90.3 fL (80.0-100.0) 11/19/22 05:07 MCH 30.5 pg (25.0-34.0) 11/19/22 05:07 MCHC 33.8 g/dL (32.0-36.0) 11/19/22 05:07 RDW Std Deviation 48.7 fL (36.4-46.3) H 11/19/22 05:07 RDW Coeff of Chhaya 14.6 % (11.5-14.5) H 11/19/22 05:07 Plt Count 308 K/uL (130-400) 11/19/22 05:07 MPV 8.9 fL (9.4-12.4) L 11/19/22 05:07 Immature Gran % (Auto) 0.8 % 11/18/22 20:15 Neut % (Auto) 87.9 % 11/18/22 20:15 Lymph % (Auto) 3.4 % 11/18/22 20:15 Bond % (Auto) 7.5 % 11/18/22 20:15 Eos % (Auto) 0.2 % 11/18/22 20:15 Baso % (Auto) 0.2 % 11/18/22 20:15 Neut # (Auto) 11.42 K/uL (1.40-6.50) H 11/18/22 20:15 Lymph # (Auto) 0.44 K/uL (1.2-3.4) L 11/18/22 20:15 Bond # (Auto) 0.97 K/uL (0.11-0.59) H 11/18/22 20:15 Eos # (Auto) 0.02 K/uL (0-0.50) 11/18/22 20:15 Baso # (Auto) 0.03 K/uL (0-0.2) 11/18/22 20:15 Immature Gran # (Auto) 0.11 K/uL (0.01-0.20) 11/18/22 20:15 Dohle Bodies 2+ 11/18/22 16:49 Sample Site Art Line 11/19/22 04:01 POC pH 7.41 (7.35-7.45) 11/19/22 04:01 POC pCO2 34 mmHg (35-46) L 11/19/22 04:01 POC pO2 79 mmHg (80-95) L 11/19/22 04:01 POC HCO3 22 jose juan/L (19-24) 11/19/22 04:01 POC Total CO2 23 mmol/L (24-31) L 11/19/22 04:01 POC Base Excess -3.0 jose juan/L (-9-1.8) 11/19/22 04:01 ABG pH (Temp Correct) 7.422 (7.35-7.45) 11/19/22 04:01 ABG pCO2 (Temp Corrct 33 mmHg (35-46) L 11/19/22 04:01 POC ABG pO2 at Pt Temp 75 11/19/22 04:01 POC ABG O2 Sat 96.0 % (90-95) H 11/19/22 04:01 Seb Test NA 11/19/22 04:01 VBG pH 7.46 (7.36-7.41) H 11/18/22 16:49 VBG pCO2 40 mmHg (38-50) 11/18/22 16:49 VBG pO2 58 mmHg 11/18/22 16:49 VBG HCO3 28 mmol/L 11/18/22 16:49 VBG O2 Saturation 89.2 % 11/18/22 16:49 VBG Base Excess 4.2 mEq/L 11/18/22 16:49 O2 Delivery Device Ventilator 11/19/22 04:01 POC O2 Rate 20 11/19/22 04:01 POC FiO2 40 % 11/19/22 04:01 Tidal Volume 480 11/19/22 04:01 PEEP 8 11/19/22 04:01 POC Sodium 137 mmol/L (135-144) 11/19/22 04:01 Sodium 136 mmol/L (136-145) 11/19/22 05:07 POC Potassium 4.0 mmol/L (3.3-5.0) 11/19/22 04:01 Potassium 4.0 mmol/L (3.5-5.1) 11/19/22 05:07 POC Chloride 101 mmol/L (101-112) 11/18/22 16:54 Chloride 108 mmol/L (98-107) H 11/19/22 05:07 Carbon Dioxide 23 mmol/L (21-32) 11/19/22 05:07 POC Total CO2 23 mmol/L (24-31) L 11/18/22 16:54 Anion Gap 5 (3-11) 11/19/22 05:07 POC Anion Gap 19.0 mmol/L (16-25) 11/18/22 16:54 POC BUN 18 mg/dl (7-18) 11/18/22 16:54 BUN 24 mg/dl (6-23) H 11/19/22 05:07 Creatinine 0.74 mg/dl (0.6-1.4) 11/19/22 05:07 POC Creatinine 0.8 mg/dl (0.6-1.3) 11/18/22 16:54 Est Cr Clr Drug Dosing 101.4 ml/min 11/19/22 05:07 Est GFR ( Amer) 111.4 ml/min 11/19/22 05:07 Est GFR (Non-Af Amer) 96.1 ml/min 11/19/22 05:07 BUN/Creatinine Ratio 32.4 (10-20) H 11/19/22 05:07 Glucose 161 mg/dl (70-99(Fasting)) H 11/19/22 05:07 POC Glucose (other) 164 mg/dl (70-99) H 11/19/22 12:00 Lactate 1.3 mmol/L (0.4-2.0) 11/18/22 20:15 Calcium 8.1 mg/dl (8.6-10.3) L 11/19/22 05:07 POC Ioniz Calcium [place] 1.11 mmol/l (1.12-1.32) L 11/18/22 16:54 Phosphorus 2.8 mg/dl (2.5-4.9) 11/19/22 05:07 Magnesium 1.8 mg/dl (1.7-2.4) 11/19/22 05:07 Total Bilirubin 0.5 mg/dl (0.2-1.0) 11/19/22 05:07 AST 9 U/L (13-39) L 11/19/22 05:07 ALT 10 U/L (7-52) 11/19/22 05:07 Alkaline Phosphatase 53 U/L (34-104) 11/19/22 05:07 Troponin I High Sens 9.6 pg/ml (0-20) D 11/18/22 20:15 Total Protein 5.5 gm/dl (6.0-8.3) L 11/19/22 05:07 Albumin 2.9 gm/dl (3.4-5.0) L 11/19/22 05:07 Globulin 2.6 gm/dl (2.5-4.0) 11/19/22 05:07 Albumin/Globulin Ratio 1.1 (0.9-2) 11/19/22 05:07 Lipase 3 U/L (11-82) L 11/18/22 16:49 Procalcitonin 1.73 ng/ml (0-0.5) H 11/18/22 20:14 Random Cortisol 13.84 mcg/dl 11/18/22 20:15 Urine Color Dark Yellow 11/18/22 22:30 Urine Appearance Clear (Clear) 11/18/22 22:30 Urine pH 5.5 (4.5-7.5) 11/18/22 22:30 Ur Specific [place] > 1.045 (1.000-1.030) H 11/18/22 22:30 Urine Protein 1+ (Negative) H 11/18/22 22:30 Urine Glucose (UA) Trace (Negative) H 11/18/22 22:30 Urine Ketones 1+ (Negative) H 11/18/22 22:30 Urine Blood Negative (Negative) 11/18/22 22:30 Urine Nitrite Negative (Negative) 11/18/22 22:30 Urine Bilirubin Negative (Negative) 11/18/22 22:30 Urine Urobilinogen Negative (Negative) 11/18/22 22:30 Ur Leukocyte Esterase Negative (Negative) 11/18/22 22:30 Urine WBC (Auto) 1-5 /hpf (0-5) 11/18/22 22:30 Urine RBC (Auto) 0-4 /hpf (0-4) 11/18/22 22:30 U Hyaline Cast (Auto) 0 /lpf (0-5) 11/18/22 22:30 U Epithel Cells (Auto) 20-30 /lpf (0-5) H 11/18/22 22:30 Urine Bacteria (Auto) Negative (Negative) 11/18/22 22:30 Calcium Oxalate Crystal Present (None Prsent) A 11/18/22 22:30 Urine Sperm Not Reportable 11/18/22 22:30 Nasal Screen MRSA (PCR) Negative (Negative) 11/18/22 20:24 Adenovirus (PCR) Not Detected (NotDetected) 11/18/22 20:24 B. pertussis DNA (PCR) Not Detected (NotDetected) 11/18/22 20:24 B.parapertussis DNA PCR Not Detected (NotDetected) 11/18/22 20:24 C. pneumoniae DNA (PCR) Not Detected (NotDetected) 11/18/22 20:24 Coronavirus OC43 (PCR) Not Detected (NotDetected) 11/18/22 20:24 Coronavirus HKU1 (PCR) Not Detected (NotDetected) 11/18/22 20:24 Coronavirus 229E (PCR) Not Detected (NotDetected) 11/18/22 20:24 SARS-CoV-2 (PCR) NEGATIVE (Negative) 11/18/22 20:24 SARS-CoV-2 (PCR) Not Detected (NotDetected) 11/18/22 20:24 Coronavirus NL63 (PCR) Not Detected (NotDetected) 11/18/22 20:24 Human Metapneumovir PCR Not Detected (NotDetected) 11/18/22 20:24 Influenza Type A (PCR) Negative (Neg) 11/18/22 20:24 Influenza Type A (PCR) Not Detected (NotDetected) 11/18/22 20:24 Influenza Type B (PCR) Negative (Neg) 11/18/22 20:24 Influenza Type B (PCR) Not Detected (NotDetected) 11/18/22 20:24 M. pneumoniae (PCR) Not Detected (NotDetected) 11/18/22 20:24 Parainfluenza 1 (PCR) Not Detected (NotDetected) 11/18/22 20:24 Parainfluenza 2 (PCR) Not Detected (NotDetected) 11/18/22 20:24 Parainfluenza 3 (PCR) Not Detected (NotDetected) 11/18/22 20:24 Parainfluenza 4 (PCR) Not Detected (NotDetected) 11/18/22 20:24 RSV (RT-PCR) Negative (Neg) 11/18/22 20:24 RSV (PCR) Not Detected (NotDetected) 11/18/22 20:24 Entero/Rhino (PCR) Not Detected (NotDetected) 11/18/22 20:[address] 11/18/22 18:25 Exam(s): CT HEAD Without Contrast EXAM: CT Head Without Intravenous Contrast CLINICAL HISTORY: Reason for exam: Meningioma, r/o mass effect. TECHNIQUE: Axial computed tomography images of the head/brain without intravenous contrast. CTDI is 135.87 mGy and DLP is 1513.82 mGy-cm. Automated exposure control was utilized for the study. A dose lowering technique was utilized adhering to the principles of ALARA. COMPARISON: No relevant prior studies available. FINDINGS: Brain: The cerebrum appears within normal limits. There is mass-effect upon the right side of the [place] from the skull base mass. No acute large vessel infarct or hemorrhage is seen. Ventricles: Mild prominence of the lateral and third ventricles. 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 There appears to be a soft tissue component extending at least 2.5 cm into the posterior fossa compressing the right side of the [place]. Previous right occipital craniotomy. Soft tissues: Unremarkable. Sinuses: Opacification of the ethmoid air cells, greater on the right than the left. Mastoid air cells: Opacification of the right mastoid air cells, partially destroyed by tumor. Nasal cavity/septum: Previous reabsorption or resection of the nasal septum and sphenoid sinuses. IMPRESSION: 1. Mild prominence of the lateral and third ventricles. No overt hydrocephalus at this time. Consider comparison to prior studies which are not currently available and/or follow-up to exclude developing hydrocephalus. The mass lesion could compress the aqueduct of [place]. 2. 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 There appears to be a soft tissue component extending at least 2.5 cm into the posterior fossa compressing the right side of the [place]. Electronically signed by: George Atwood MD 11/18/22 22:21 PM Chest CTA 11/18/22 19:30 Exam(s): CTA CHEST IV Amt: 118 ML OPTIRAY 350 EXAM: CT Angiography Chest With Intravenous Contrast CLINICAL HISTORY: Reason for exam: PE. TECHNIQUE: Axial computed tomographic angiography images of the chest with intravenous contrast. CTDI is 135.87 mGy and DLP is 1513.82 mGy-cm. Automated exposure control was utilized for the study. A dose lowering technique was utilized adhering to the principles of ALARA. MIP reconstructed images were created and reviewed. COMPARISON: No relevant prior studies available. FINDINGS: Pulmonary arteries: Unremarkable. No acute pulmonary embolism. Aorta: No acute findings. No thoracic aortic aneurysm. Lungs: Airspace consolidation in the RIGHT lower lobe, and to a lesser extent RIGHT middle lobe and RIGHT upper lobe, consistent with multifocal pneumonia. Correlate for aspiration given that the patient is intubated. Atelectasis at LEFT lung base. Pleural space: Unremarkable. No significant effusion. No pneumothorax. Heart: Unremarkable. No cardiomegaly. No significant pericardial effusion. No evidence of RV dysfunction. Bones/joints: Degenerative changes of the spine. No acute fracture. No dislocation. Soft tissues: Unremarkable. Lymph nodes: Unremarkable. No enlarged lymph nodes. Tubes, lines and devices: Endotracheal tube terminates in the trachea. Feeding tube terminates in the stomach. RIGHT central venous line terminates in the SVC. IMPRESSION: 1. No acute pulmonary embolism. 2. Airspace consolidation in the RIGHT lower lobe, and to a lesser extent RIGHT middle lobe and RIGHT upper lobe, consistent with multifocal pneumonia. Correlate for aspiration given that the patient is intubated. 3. Endotracheal tube terminates in the trachea. 4. Feeding tube terminates in the stomach. Electronically signed by: Pierce Forbes MD 11/18/22 22:14 PM Chest X-Ray 11/19/22 10:36 XR chest 1V portable HISTORY: 67 years-old Male hypercarbic respiratory failure acute respiratory failure COMPARISON: 11/19/2022 TECHNIQUE: AP view of the chest FINDINGS: Cardiac silhouette is enlarged. Endotracheal tube overlies the midline, 3.9 cm superior to the yovanny. IJ central venous catheter noted with distal tip in expected location of the mid SVC. Distal tip of the enteric tube projects superiorly over the gastric fundus. The patient is mildly rotated. No pneumothorax or large pleural effusion. Multifocal right lung prominent airspace opacities are stable. Bones appear grossly intact. IMPRESSION: 1. Lines and tubes as above. 2. No pneumothorax. 3. Stable multifocal right lung airspace opacities. ACT 112: Negative or not required by law. The above report was generated using voice recognition software. It may contain grammatical, syntax or spelling errors. Electronically signed by: Leo Law M.D. 11/19/2022 10:56 AM
[2022-11-20] MEDS: CEFEPIME 2,000 MG in SYRINGE 0 ML IV SCH ×4 (00:18→23:36)
[2022-11-20] MEDS: NOREPINEPHRINE/D5W 4 MG/250 ML PLCT IV SCH (00:19)
[2022-11-20] MEDS: dexAMETHasone 4 MG in SYRINGE 0 ML IV SCH ×5 (00:19→23:36)
[2022-11-20] MEDS: TUBE FEEDING WATER FLUSH OG SCH ×6 (00:19→19:53)
[2022-11-20] MEDS: INSULIN ASPART PER UNIT CHARGE SC SCH ×6 (00:29→19:52)
[2022-11-20] MEDS: LACTATED RINGER'S 1,000 ML IV SCH ×4 (01:33→23:53)
[2022-11-20] MEDS: HYDROCORTISONE SOD 100 MG in SYRINGE 0 ML IV SCH (03:56)
[2022-11-20 04:31] LABS: iSTAT Allen Test Pass; iSTAT Art Bld Gas pCO2 Correct 36 mmHg (35-46); iSTAT Art Bld Gas pH Corrected 7.443 (7.35-7.45); iSTAT Arterial Blood Gas HCO3 25 meg/L (19-24); iSTAT Arterial Blood Gas pCO2 37 mmHg (35-46); iSTAT Arterial Blood Gas pH 7.43 (7.35-7.45); iSTAT Arterial Blood Gas pO2 87 mmHg (80-95); iSTAT Arterial Blood Gas pO2 C 83; iSTAT Carbon Dioxide 26 mmol/L (24-31); iSTAT FiO2 40 %; iSTAT Hematocrit 28 % (42-52); iSTAT Hemoglobin 9.5 g/dl (14.0-18.0); iSTAT Potassium 4.1 mmol/L (3.3-5.0); iSTAT Site Art Line; iSTAT Sodium 134 mmol/L (135-144)
[2022-11-20 05:12] LABS: Hematocrit (blood only) 31.5 % (42.0-52.0); Hemoglobin 10.8 g/dl (14.0-18.0); Mean Corpuscular Hemoglobin 30.5 pg (25.0-34.0); Mean Corpuscular Hgb Conc 34.3 g/dL (32.0-36.0); Mean Platelet Volume 8.8 fL (9.4-12.4); Platelet Count 235 K/uL (130-400); RDW Standard Deviation 45.9 fL (36.4-46.3); Red Blood Count 3.54 M/uL (4.70-6.10); White Blood Count 10.72 K/ul (4.8-10.8)
[2022-11-20 05:29] LABS: BUN Creatinine Ratio 38.2 (10-20); Calcium 8.1 mg/dl (8.6-10.3); Creatinine Clr Calc Pharmacy 136.4 ml/min; Est GFR (African American) 125.9 ml/min; Est GFR (Non-African American) 108.6 ml/min; Potassium 4.1 mmol/L (3.5-5.1)
[2022-11-20] MEDS ORDERED: VANCOMYCIN LEVEL ONE (07:00)
[2022-11-20] MEDS: PANTOprazole 40 MG in SYRINGE 0 ML IV SCH ×2 (07:50→21:37)
[2022-11-20] MEDS: MULTI VIT W/MINERALS LIQUID 15 ML UDP NG SCH (07:51)
[2022-11-20] MEDS ORDERED: POTASSIUM PHOS 3 MMOL/1 ML INFUSION IV STA (09:29)
[2022-11-20] MEDS ORDERED: POTASSIUM PHOSPHATE 30 MMOL in SODIUM CHLORIDE 0.9% 500 ML IV ONE (10:00)
--- NOTE | 2022-11-20 12:41 | Critical Care Progress Note ---
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 He was then placed on a spontaneous breathing trial and did extremely well pulling tidal volumes over thousand. With that he became very agitated and banging on the side of the bed rail. The decision was made to extubate him which he tolerated well and is now on room air. I would have preferred that the OGT to be placed as the NG tube because he is having difficulty swallowing already known from before. But the time urgency was present with him for getting agitated. Also after extubation his agitation and lack of insight would have caused him to pull it out anyway as he has been pulling out IVs and his oxygen as well. I am strongly suggesting to the family that we keep him n.p.o. right now until he is able to sign the papers that is necessary to reassign his healthcare agent and to sign a new will. After that there will have to be a risk-benefit analysis in order to discuss his swallow safety. It does not make sense in order to reintubate him if we know that he is going to aspirate. It does not make sense to allow him to just eat by mouth when we recognized that he is not taking in adequate nutrition. It would be strongly suggested that he go back on hospice once the papers are signed. But if he refuses then PEG would be appropriate. The concern would be for him to to rip it out and that would be quite dangerous until a tract is healed. 1. Neuropsych: Very concerning head CT scan for bony erosion of his sphenoid ethmoid and some of his temporal bone. There is concern about pending brainstem constriction and then causing hydrocephalus though the latter is not present yet as no hydrocephalus is present. The family was told that the painful if he develops brainstem herniation but I do not think that is the case he will just become unconscious and stop breathing. Once his paperwork is in order I strongly suggest that he be reverted to DNR/DNI and return to hospice. We will continue with IV Decadron for the time being 4 mg every 6 hours. 2. Cardiovascular: The patient's hemodynamics is stable at this point and he is in sinus rhythm with heart rate 72. With his normalized blood pressure we will discontinue IV hydrocortisone. 3. Respiratory: Improved aeration on yesterday's chest x-ray and he is now on room air. We will continue with cefepime antibiotics for his aspiration pneumonia. 4. GI: I would strongly suggest that he remain n.p.o. After that the family would have to assume the risks of his eating p.o. and the risks of pneumonia. This time he did turn around fairly quickly with intubation but that may not always be the case. 5. Renal: Replete his phosphate and likely has some refeeding with the NG tube yesterday as his albumin is quite low. His calcium corrects to normal. 6. ID: Cefepime for right lower lung pneumonia. Likely aspiration. Sputum culture is showing gram-negative bacilli so the cefepime is appropriate. Blood cultures x2 are no growth to date. 7. Heme: Some anemia and we will check iron stores. He is not on chemical DVT prophylaxis because of the [employer] lesions but is on compression devices as he is high risk for PE given his cancer and immobility 8. Endocrine: Some elevated glucose levels and is on a sliding scale. Subjective The patient is just lacking insight into his current situation and angry at his sister for bringing him to the hospital. He is denying that he has difficulty swallowing. Due to his belligerence complete review of systems was not able to be obtained. Physical Exam Physical Exam: He has some dysarthria and some of his speech is not clear. Right now he is not in significant respiratory distress but still has some cough which sounds junky some right facial droop. Right pupil is still bigger than the left and minimally reactive lungs are rhonchorous right greater than left diminished breath sounds heart is regular rate and rhythm without murmurs rubs or gallops abdomen is soft nontender without apparent splenomegaly extremities with 1+ frandy a. Results & Data Results & Data Vital Signs (Past 12 Hours) Vital Signs Temp Pulse Resp BP Pulse Ox O2 Del Method FiO2 11/20/22 11:01 36.5 C 70 15 90 11/20/22 11:01 122/88 11/20/22 11:00 36.5 C 68 16 89 L 11/20/22 10:01 36.3 C L 76 19 90 11/20/22 10:01 137/84 11/20/22 10:00 36.3 C L 73 19 90 11/20/22 09:00 36.2 C L 66 16 91 11/20/22 08:01 133/81 11/20/22 08:01 36.2 C L 64 17 92 11/20/22 08:00 36.2 C L 64 13 92 11/20/22 07:00 36.2 C L 54 L 0 L 95 11/20/22 08:29 64 11/20/22 08:23 Oxymask 35 11/20/22 06:26 12 40 11/20/22 05:00 36.1 C L 60 25 H 96 11/20/22 05:00 118/67 11/20/22 04:00 36.3 C L 47 L 18 96 11/20/22 04:00 111/64 11/20/22 03:00 36.3 C L 50 L 18 95 11/20/22 03:00 103/61 11/20/22 02:00 36.3 C L 51 L 18 95 11/20/22 02:00 103/57 L 11/20/22 04:00 40 11/20/22 03:27 50 L 18 94 40 11/20/22 01:00 36.3 C L 48 L 18 95 11/20/22 01:00 105/63 Laboratory Results Laboratory Results WBC 10.72 K/ul (4.8-10.8) 11/20/22 04:34 RBC 3.54 M/uL (4.70-6.10) L 11/20/22 04:34 Hgb 10.8 g/dl (14.0-18.0) L 11/20/22 04:34 POC Hgb 9.5 g/dl (14.0-18.0) L 11/20/22 04:17 Hct 31.5 % (42.0-52.0) L 11/20/22 04:34 POC Hct 28 % (42-52) L 11/20/22 04:17 MCV 89.0 fL (80.0-100.0) 11/20/22 04:34 MCH 30.5 pg (25.0-34.0) 11/20/22 04:34 MCHC 34.3 g/dL (32.0-36.0) 11/20/22 04:34 RDW Std Deviation 45.9 fL (36.4-46.3) 11/20/22 04:34 RDW Coeff of Chhaya 14.0 % (11.5-14.5) 11/20/22 04:34 Plt Count 235 K/uL (130-400) 11/20/22 04:34 MPV 8.8 fL (9.4-12.4) L 11/20/22 04:34 Immature Gran % (Auto) 0.8 % 11/18/22 20:15 Neut % (Auto) 87.9 % 11/18/22 20:15 Lymph % (Auto) 3.4 % 11/18/22 20:15 Hernando % (Auto) 7.5 % 11/18/22 20:15 Eos % (Auto) 0.2 % 11/18/22 20:15 Baso % (Auto) 0.2 % 11/18/22 20:15 Neut # (Auto) 11.42 K/uL (1.40-6.50) H 11/18/22 20:15 Lymph # (Auto) 0.44 K/uL (1.2-3.4) L 11/18/22 20:15 Hernando # (Auto) 0.97 K/uL (0.11-0.59) H 11/18/22 20:15 Eos # (Auto) 0.02 K/uL (0-0.50) 11/18/22 20:15 Baso # (Auto) 0.03 K/uL (0-0.2) 11/18/22 20:15 Immature Gran # (Auto) 0.11 K/uL (0.01-0.20) 11/18/22 20:15 Dohle Bodies 2+ 11/18/22 16:49 Sample Site Art Line 11/20/22 04:17 POC pH 7.43 (7.35-7.45) 11/20/22 04:17 POC pCO2 37 mmHg (35-46) 11/20/22 04:17 POC pO2 87 mmHg (80-95) 11/20/22 04:17 POC HCO3 25 jose juan/L (19-24) H 11/20/22 04:17 POC Total CO2 26 mmol/L (24-31) 11/20/22 04:17 POC Base Excess 0.0 jose juan/L (-9-1.8) 11/20/22 04:17 ABG pH (Temp Correct) 7.443 (7.35-7.45) 11/20/22 04:17 ABG pCO2 (Temp Corrct 36 mmHg (35-46) 11/20/22 04:17 POC ABG pO2 at Pt Temp 83 11/20/22 04:17 POC ABG O2 Sat 97.0 % (90-95) H 11/20/22 04:17 Seb Test Pass 11/20/22 04:17 VBG pH 7.46 (7.36-7.41) H 11/18/22 16:49 VBG pCO2 40 mmHg (38-50) 11/18/22 16:49 VBG pO2 58 mmHg 11/18/22 16:49 VBG HCO3 28 mmol/L 11/18/22 16:49 VBG O2 Saturation 89.2 % 11/18/22 16:49 VBG Base Excess 4.2 mEq/L 11/18/22 16:49 O2 Delivery Device Ventilator 11/20/22 04:17 POC O2 Rate 18 11/20/22 04:17 POC FiO2 40 % 11/20/22 04:17 Tidal Volume 480 11/20/22 04:17 PEEP 5 11/20/22 04:17 POC Sodium 134 mmol/L (135-144) L 11/20/22 04:17 Sodium 135 mmol/L (136-145) L 11/20/22 04:34 POC Potassium 4.1 mmol/L (3.3-5.0) 11/20/22 04:17 Potassium 4.1 mmol/L (3.5-5.1) 11/20/22 04:34 POC Chloride 101 mmol/L (101-112) 11/18/22 16:54 Chloride 106 mmol/L (98-107) 11/20/22 04:34 Carbon Dioxide 25 mmol/L (21-32) 11/20/22 04:34 POC Total CO2 23 mmol/L (24-31) L 11/18/22 16:54 Anion Gap 4 (3-11) 11/20/22 04:34 POC Anion Gap 19.0 mmol/L (16-25) 11/18/22 16:54 POC BUN 18 mg/dl (7-18) 11/18/22 16:54 BUN 21 mg/dl (6-23) 11/20/22 04:34 Creatinine 0.55 mg/dl (0.6-1.4) L 11/20/22 04:34 POC Creatinine 0.8 mg/dl (0.6-1.3) 11/18/22 16:54 Est Cr Clr Drug Dosing 136.4 ml/min 11/20/22 04:34 Est GFR ( Amer) 125.9 ml/min 11/20/22 04:34 Est GFR (Non-Af Amer) 108.6 ml/min 11/20/22 04:34 BUN/Creatinine Ratio 38.2 (10-20) H 11/20/22 04:34 Glucose 182 mg/dl (70-99(Fasting)) H 11/20/22 04:34 POC Glucose 131 mg/dl (70-99) H 11/20/22 11:43 POC Glucose (other) 181 mg/dl (70-99) H 11/20/22 04:27 Lactate 1.3 mmol/L (0.4-2.0) 11/18/22 20:15 Calcium 8.1 mg/dl (8.6-10.3) L 11/20/22 04:34 POC Ioniz Calcium Leonides 1.11 mmol/l (1.12-1.32) L 11/18/22 16:54 Phosphorus 2.0 mg/dl (2.5-4.9) L 11/20/22 04:34 Magnesium 2.0 mg/dl (1.7-2.4) 11/20/22 04:34 Iron 63 mcg/dl (35-175) 11/20/22 04:34 Unsaturated IBC 98 mcg/dl (155-355) L 11/20/22 04:34 Total Bilirubin 0.5 mg/dl (0.2-1.0) 11/19/22 05:07 AST 9 U/L (13-39) L 11/19/22 05:07 ALT 10 U/L (7-52) 11/19/22 05:07 Alkaline Phosphatase 53 U/L (34-104) 11/19/22 05:07 Troponin I High Sens 9.6 pg/ml (0-20) D 11/18/22 20:15 Total Protein 5.5 gm/dl (6.0-8.3) L 11/19/22 05:07 Albumin 2.9 gm/dl (3.4-5.0) L 11/19/22 05:07 Globulin 2.6 gm/dl (2.5-4.0) 11/19/22 05:07 Albumin/Globulin Ratio 1.1 (0.9-2) 11/19/22 05:07 Lipase 3 U/L (11-82) L 11/18/22 16:49 Procalcitonin 1.73 ng/ml (0-0.5) H 11/18/22 20:14 Random Cortisol 13.84 mcg/dl 11/18/22 20:15 Urine Color Dark Yellow 11/18/22 22:30 Urine Appearance Clear (Clear) 11/18/22 22:30 Urine pH 5.5 (4.5-7.5) 11/18/22 22:30 Ur Specific [place] > 1.045 (1.000-1.030) H 11/18/22 22:30 Urine Protein 1+ (Negative) H 11/18/22 22:30 Urine Glucose (UA) Trace (Negative) H 11/18/22 22:30 Urine Ketones 1+ (Negative) H 11/18/22 22:30 Urine Blood Negative (Negative) 11/18/22 22:30 Urine Nitrite Negative (Negative) 11/18/22 22:30 Urine Bilirubin Negative (Negative) 11/18/22 22:30 Urine Urobilinogen Negative (Negative) 11/18/22 22:30 Ur Leukocyte Esterase Negative (Negative) 11/18/22 22:30 Urine WBC (Auto) 1-5 /hpf (0-5) 11/18/22 22:30 Urine RBC (Auto) 0-4 /hpf (0-4) 11/18/22 22:30 U Hyaline Cast (Auto) 0 /lpf (0-5) 11/18/22 22:30 U Epithel Cells (Auto) 20-30 /lpf (0-5) H 11/18/22 22:30 Urine Bacteria (Auto) Negative (Negative) 11/18/22 22:30 Calcium Oxalate Crystal Present (None Prsent) A 11/18/22 22:30 Urine Sperm Not Reportable 11/18/22 22:30 Nasal Screen MRSA (PCR) Negative (Negative) 11/18/22 20:24 Adenovirus (PCR) Not Detected (NotDetected) 11/18/22 20:24 B. pertussis DNA (PCR) Not Detected (NotDetected) 11/18/22 20:24 B.parapertussis DNA PCR Not Detected (NotDetected) 11/18/22 20:24 C. pneumoniae DNA (PCR) Not Detected (NotDetected) 11/18/22 20:24 Coronavirus OC43 (PCR) Not Detected (NotDetected) 11/18/22 20:24 Coronavirus HKU1 (PCR) Not Detected (NotDetected) 11/18/22 20:24 Coronavirus 229E (PCR) Not Detected (NotDetected) 11/18/22 20:24 SARS-CoV-2 (PCR) NEGATIVE (Negative) 11/18/22 20:24 SARS-CoV-2 (PCR) Not Detected (NotDetected) 11/18/22 20:24 Coronavirus NL63 (PCR) Not Detected (NotDetected) 11/18/22 20:24 Human Metapneumovir PCR Not Detected (NotDetected) 11/18/22 20:24 Influenza Type A (PCR) Negative (Neg) 11/18/22 20:24 Influenza Type A (PCR) Not Detected (NotDetected) 11/18/22 20:24 Influenza Type B (PCR) Negative (Neg) 11/18/22 20:24 Influenza Type B (PCR) Not Detected (NotDetected) 11/18/22 20:24 M. pneumoniae (PCR) Not Detected (NotDetected) 11/18/22 20:24 Parainfluenza 1 (PCR) Not Detected (NotDetected) 11/18/22 20:24 Parainfluenza 2 (PCR) Not Detected (NotDetected) 11/18/22 20:24 Parainfluenza 3 (PCR) Not Detected (NotDetected) 11/18/22 20:24 Parainfluenza 4 (PCR) Not Detected (NotDetected) 11/18/22 20:24 RSV (RT-PCR) Negative (Neg) 11/18/22 20:24 RSV (PCR) Not Detected (NotDetected) 11/18/22 20:24 Entero/Rhino (PCR) Not Detected (NotDetected) 11/18/22 20:[address] 11/18/22 18:25 Exam(s): CT HEAD Without Contrast EXAM: CT Head Without Intravenous Contrast CLINICAL HISTORY: Reason for exam: Meningioma, r/o mass effect. TECHNIQUE: Axial computed tomography images of the head/brain without intravenous contrast. CTDI is 135.87 mGy and DLP is 1513.82 mGy-cm. Automated exposure control was utilized for the study. A dose lowering technique was utilized adhering to the principles of ALARA. COMPARISON: No relevant prior studies available. FINDINGS: Brain: The cerebrum appears within normal limits. There is mass-effect upon the right side of the [place] from the skull base mass. No acute large vessel infarct or hemorrhage is seen. Ventricles: Mild prominence of the lateral and third ventricles. 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 There appears to be a soft tissue component extending at least 2.5 cm into the posterior fossa compressing the right side of the [place]. Previous right occipital craniotomy. Soft tissues: Unremarkable. Sinuses: Opacification of the ethmoid air cells, greater on the right than the left. Mastoid air cells: Opacification of the right mastoid air cells, partially destroyed by tumor. Nasal cavity/septum: Previous reabsorption or resection of the nasal septum and sphenoid sinuses. IMPRESSION: 1. Mild prominence of the lateral and third ventricles. No overt hydrocephalus at this time. Consider comparison to prior studies which are not currently available and/or follow-up to exclude developing hydrocephalus. The mass lesion could compress the aqueduct of [place]. 2. 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 There appears to be a soft tissue component extending at least 2.5 cm into the posterior fossa compressing the right side of the [place]. Electronically signed by: George Atwood MD 11/18/22 22:21 PM Chest CTA 11/18/22 19:30 Exam(s): CTA CHEST IV Amt: 118 ML OPTIRAY 350 EXAM: CT Angiography Chest With Intravenous Contrast CLINICAL HISTORY: Reason for exam: PE. TECHNIQUE: Axial computed tomographic angiography images of the chest with intravenous contrast. CTDI is 135.87 mGy and DLP is 1513.82 mGy-cm. Automated exposure control was utilized for the study. A dose lowering technique was utilized adhering to the principles of ALARA. MIP reconstructed images were created and reviewed. COMPARISON: No relevant prior studies available. FINDINGS: Pulmonary arteries: Unremarkable. No acute pulmonary embolism. Aorta: No acute findings. No thoracic aortic aneurysm. Lungs: Airspace consolidation in the RIGHT lower lobe, and to a lesser extent RIGHT middle lobe and RIGHT upper lobe, consistent with multifocal pneumonia. Correlate for aspiration given that the patient is intubated. Atelectasis at LEFT lung base. Pleural space: Unremarkable. No significant effusion. No pneumothorax. Heart: Unremarkable. No cardiomegaly. No significant pericardial effusion. No evidence of RV dysfunction. Bones/joints: Degenerative changes of the spine. No acute fracture. No dislocation. Soft tissues: Unremarkable. Lymph nodes: Unremarkable. No enlarged lymph nodes. Tubes, lines and devices: Endotracheal tube terminates in the trachea. Feeding tube terminates in the stomach. RIGHT central venous line terminates in the SVC. IMPRESSION: 1. No acute pulmonary embolism. 2. Airspace consolidation in the RIGHT lower lobe, and to a lesser extent RIGHT middle lobe and RIGHT upper lobe, consistent with multifocal pneumonia. Correlate for aspiration given that the patient is intubated. 3. Endotracheal tube terminates in the trachea. 4. Feeding tube terminates in the stomach. Electronically signed by: Pierce Forbes MD 11/18/22 22:14 PM Chest X-Ray 11/19/22 10:36 XR chest 1V portable HISTORY: 67 years-old Male hypercarbic respiratory failure acute respiratory failure COMPARISON: 11/19/2022 TECHNIQUE: AP view of the chest FINDINGS: Cardiac silhouette is enlarged. Endotracheal tube overlies the midline, 3.9 cm superior to the yovanny. IJ central venous catheter noted with distal tip in expected location of the mid SVC. Distal tip of the enteric tube projects superiorly over the gastric fundus. The patient is mildly rotated. No pneumothorax or large pleural effusion. Multifocal right lung prominent airspace opacities are stable. Bones appear grossly intact. IMPRESSION: 1. Lines and tubes as above. 2. No pneumothorax. 3. Stable multifocal right lung airspace opacities. ACT 112: Negative or not required by law. The above report was generated using voice recognition software. It may contain grammatical, syntax or spelling errors. Electronically signed by: Leo Law M.D. 11/19/2022 10:56 AM Medications Administered Current Medications Acetaminophen (Acetaminophen 650 Mg Supp) 650 mg VA Q6H PRN PRN Reason: Fever Stop: 12/18/22 18:29 Dextrose (Dextrose 50% 50 Ml Syringe) 25 - 50 ml IV UD PRN; Protocol PRN Reason: Hypoglycemia Protocol Stop: 12/19/22 00:35 Glucagon (Glucagon For Inj 1 Mg Vial) 1 mg SQ UD PRN; Protocol PRN Reason: Hypoglycemia Protocol Stop: 12/19/22 00:35 Glucose (Glucose 10 Tab/Tube) 4 - 8 tab PO UD PRN; Protocol PRN Reason: Hypoglycemia Treatment Stop: 12/19/22 00:35 Glucose (Glucose 40% Gel 15 Gm Tube) 15 - 30 gm PO UD PRN; Protocol PRN Reason: Hypoglycemia Protocol Stop: 12/19/22 00:35 Cefepime HCl 2,000 mg/ Syringe 20 mls @ 5 mls/min IV Q8H RODERICK; Protocol Stop: 11/26/22 00:00 Last Admin: 11/20/22 07:51 Dose: 5 mls/min Pantoprazole Sodium 40 mg/ (Syringe) 10 mls @ 5 mls/min IV BID RODERICK Stop: 12/18/22 20:59 Last Admin: 11/20/22 07:50 Dose: 5 mls/min Lactated Ringer's (Lr) 1,000 mls @ 125 mls/hr IV .Q8H RODERICK Stop: 12/18/22 22:44 Last Admin: 11/20/22 07:52 Dose: 125 mls/hr Dexamethasone 4 mg/ Syringe 1 mls @ 1 mls/min IV Q6H RODERICK Stop: 12/19/22 11:59 Last Admin: 11/20/22 11:49 Dose: 1 mls/min Potassium Phosphate 30 mmol/ (Sodium Chloride) 510 mls @ 102 mls/hr IV ONE ONE Stop: 11/20/22 14:59 Last Admin: 11/20/22 10:38 Dose: 102 mls/hr Insulin Aspart (Insulin Aspart Per Unit Charge) 0 units SC Q4 RODERICK Stop: 12/19/22 00:44 Last Admin: 11/20/22 11:46 Dose: Not Given Midazolam HCl (Midazolam Bolus From Bag) 2 mg IV Q60M PRN PRN Reason: Sedation Stop: 12/18/22 16:58 Last Admin: 11/18/22 17:48 Dose: 2 mg Miscellaneous (Carbohydrates For Hypoglycemia ) 15 - 30 gm PO UD PRN PRN Reason: Hypoglycemia Protocol Stop: 12/19/22 00:35 Multivitamins/Minerals (Multi Vit W/Minerals Liquid 15 Ml Udp) 15 ml NG QAM RODERICK Stop: 12/20/22 08:59 Last Admin: 11/20/22 07:51 Dose: Not Given Sterile Water (Tube Feeding Water Flush) 150 ml OG Q4H RODERICK Stop: 12/19/22 11:59 Last Admin: 11/20/22 11:47 Dose: Not Given Coding Level of Care Code 11491 CRITICAL CARE 1ST 30-74M History Comprehensive Exam Comprehensive Medical Decision Making High Complexity Diagnoses Respiratory failure J96.90 Melanoma of eye C69.90 Meningioma determined by biopsy of brain D32.0 Pneumonia J18.9 Septic shock A41.9; R65.21 Time Spent (min) 60
--- NOTE | 2022-11-20 14:36 | Hospitalist Progress Note ---
Date of Service November 20, 2022 Assessment & Plan (1) Septic shock: (2) Pneumonia: Plan: Acute respiratory failure with hypoxia Septic shock Multifocal aspiration pneumonia --S/P Extubation on 11/20/22 --Off Pressors since 11/20/22 --Chest CTA: No acute pulmonary embolism. Airspace consolidation in the RIGHT lower lobe, and to a lesser extent RIGHT middle lobe and RIGHT upper lobe, consistent with multifocal pneumonia. Correlate for aspiration given that the patient is intubated. --Blood Cultures: Negative to date --MRSA Screen negative --Sputum culture growing gram-negative bacilli --Respiratory panel negative --Urine for Legionella pending Appreciate critical care input Continue IV fluids N.p.o. 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 No overt hydrocephalus at this time. Consider comparison to prior studies which are not currently available and/or follow-up to exclude developing hydrocephalus. The mass lesion could compress the aqueduct of Sylvius. 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 There appears to be a soft tissue component extending at least 2.5 cm into the posterior fossa compressing the right side of the ashkan. --Was initially on hospice status Follows with oncology as outpatient Palliative care consulted to address goals of care Continue IV dexamethasone as above Plan DVT Px: SCDs Re: Brain mets Code Status Full code Admission and Anticipated Discharge Date Admission Date: November 18, 2022 Subjective Patient is seen and examined at bedside States having chronic neck pain and right facial pain Extubated this morning Off pressors since this morning as well Discussed with patient's son at bedside Denies any significant dyspnea, cough Review of Systems Review of Systems: All systems reviewed & are unremarkable except as noted in Subjective Physical Exam Physical Exam: Physical Exam: Vitals signs as noted above General Appearance:Moderately built and nourished, no apparent distress Head: normocephalic, Atraumatic Eyes: normal inspection, L eye blindness, R pupil dilated Neck: supple, Trachea midline Respiratory/Chest: Decreased breath sounds, minimal basal crackles , No accessory muscle use Cardiovascular: S1, S2, No murmur Abdomen/GI:Soft, Non tender, Bowel sounds present Extremities/Musculoskeletal:normal inspection, Trace pedal edema Neurologic/Psych:AAO, +Dysarthria, facial droop Skin: normal color, warm Results & Data Results & Data Vital Signs (Past 12 Hours) Vital Signs Temp Pulse Resp BP Pulse Ox O2 Del Method FiO2 11/20/22 11:01 36.5 C 70 15 90 11/20/22 11:01 122/88 11/20/22 11:00 36.5 C 68 16 89 L 11/20/22 10:01 36.3 C L 76 19 90 11/20/22 10:01 137/84 11/20/22 10:00 36.3 C L 73 19 90 11/20/22 09:00 36.2 C L 66 16 91 11/20/22 08:01 133/81 11/20/22 08:01 36.2 C L 64 17 92 11/20/22 08:00 36.2 C L 64 13 92 11/20/22 07:00 36.2 C L 54 L 0 L 95 11/20/22 08:29 64 11/20/22 08:23 Oxymask 35 11/20/22 06:26 12 40 11/20/22 05:00 36.1 C L 60 25 H 96 11/20/22 05:00 118/67 11/20/22 04:00 36.3 C L 47 L 18 96 11/20/22 04:00 111/64 11/20/22 03:00 36.3 C L 50 L 18 95 11/20/22 03:00 103/61 11/20/22 04:00 40 11/20/22 03:27 50 L 18 94 40 Laboratory Results Short CBC 11/20/22 Range/Units 04:34 WBC 10.72 (4.8-10.8) K/ul Hgb 10.8 L (14.0-18.0) g/dl Hct 31.5 L (42.0-52.0) % Plt Count 235 (130-400) K/uL BMP 11/20/22 04:34 Sodium 135 L Potassium 4.1 Chloride 106 Carbon Dioxide 25 BUN 21 Creatinine 0.55 L Glucose 182 H Calcium 8.1 L
[2022-11-20] MEDS ORDERED: LORazepam 2 MG/1 ML VIAL IV STA (21:36)
--- NOTE | 2022-11-20 21:37 | Communication Note ---
Date of Service: November 20, 2022 CODE STATUS clarified with patient after being made aware by [employer] DOCUMENT EXAMINER of anxiety concerns. Patient mentating well during encounter. No intubation, okay with chest compressions/defibrillation as per discussion with patient.
[2022-11-21] MEDS: INSULIN ASPART PER UNIT CHARGE SC SCH ×5 (00:03→19:03)
[2022-11-21] MEDS: dexAMETHasone 4 MG in SYRINGE 0 ML IV SCH ×4 (05:46→23:26)
[2022-11-21 06:30] LABS: Hematocrit (blood only) 33.4 % (42.0-52.0); Hemoglobin 11.7 g/dl (14.0-18.0); Mean Corpuscular Hemoglobin 30.5 pg (25.0-34.0); Mean Platelet Volume 8.4 fL (9.4-12.4); Platelet Count 224 K/uL (130-400); RDW Coefficient of Variation 13.9 % (11.5-14.5); RDW Standard Deviation 43.9 fL (36.4-46.3); Red Blood Count 3.84 M/uL (4.70-6.10)
[2022-11-21 06:57] LABS: BUN Creatinine Ratio 29.4 (10-20); Calcium 8.2 mg/dl (8.6-10.3); Creatinine Clr Calc Pharmacy 147.1 ml/min; Est GFR (African American) 129.8 ml/min; Magnesium 1.9 mg/dl (1.7-2.4); Phosphorus 2.1 mg/dl (2.5-4.9); Potassium 3.7 mmol/L (3.5-5.1)
[2022-11-21] MEDS ORDERED: POTASSIUM PHOS 3 MMOL/1 ML INFUSION IV ONE (09:34)
[2022-11-21] MEDS: MULTI VIT W/MINERALS LIQUID 15 ML UDP NG SCH (09:37)
[2022-11-21] MEDS ORDERED: POTASSIUM PHOSPHATE 21 MMOL in SODIUM CHLORIDE 0.9% 500 ML IV ONE (10:00)
[2022-11-21] MEDS: LORazepam 2 MG/1 ML VIAL IV PRN (10:12)
[2022-11-21] MEDS: PANTOprazole 40 MG in SYRINGE 0 ML IV SCH ×2 (10:13→21:24)
[2022-11-21] MEDS: CEFEPIME 2,000 MG in SYRINGE 0 ML IV SCH ×3 (10:41→23:26)
--- NOTE | 2022-11-21 16:08 | Hospitalist Progress Note ---
Date of Service November 21, 2022 Assessment & Plan (1) Septic shock: (2) Pneumonia: Plan: Acute respiratory failure with hypoxia Septic shock Multifocal aspiration pneumonia --S/P Extubation on 11/20/22 --Off Pressors since 11/20/22 --Chest CTA: No acute pulmonary embolism. Airspace consolidation in the RIGHT lower lobe, and to a lesser extent RIGHT middle lobe and RIGHT upper lobe, consistent with multifocal pneumonia. Correlate for aspiration given that the patient is intubated. --Blood Cultures: Negative to date --MRSA Screen negative --Sputum culture growing pansensitive Klebsiella --Respiratory panel negative --Urine for Legionella pending Appreciate critical care input Continue IV fluids N.p.o. for now Was on Tube feeds Speech therapy to evaluate Continue IV cefepime Palliative care consulted to address goals of care-pending Titrate down IV Solu-Medrol as able Saturating low 90s on room air Hypophosphatemia Replete electrolytes as needed Monitor Anxiety Ativan as needed Hold sedatives meds to prevent excess sedation (3) Meningioma determined by biopsy of brain: Plan: H/O Meningioma initial diagnosis 2016 Has been on Keytruda and also dexamethasone 4 mg twice daily --CT head:Mild prominence of the lateral and third ventricles. No overt hydrocephalus at this time. Consider comparison to prior studies which are not currently available and/or follow-up to exclude developing hydrocephalus. The mass lesion could compress the aqueduct of Sylvius. 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 There appears to be a soft tissue component extending at least 2.5 cm into the posterior fossa compressing the right side of the ashkan. --Was initially on hospice status Follows with oncology as outpatient Palliative care consulted to address goals of care Continue IV dexamethasone as above Plan DVT Px: SCDs Re: Brain mets Code Status Full code Admission and Anticipated Discharge Date Admission Date: November 18, 2022 Subjective Patient is seen and examined at bedside Was anxious this morning noted by RN Drowsy during my encounter after receiving Ativan Denies any chest pain, dyspnea, cough Review of Systems Review of Systems: All systems reviewed & are unremarkable except as noted in Subjective Physical Exam Physical Exam: Physical Exam: Vitals signs as noted above General Appearance:Moderately built and nourished, no apparent distress Head: normocephalic, Atraumatic Eyes: normal inspection, L eye blindness, R pupil dilated Neck: supple, Trachea midline Respiratory/Chest: Decreased breath sounds, minimal basal crackles , No accessory muscle use Cardiovascular: S1, S2, No murmur Abdomen/GI:Soft, Non tender, Bowel sounds present Extremities/Musculoskeletal:normal inspection, Trace pedal edema Neurologic/Psych:AAO, +Dysarthria, facial droop Skin: normal color, warm Results & Data Results & Data Vital Signs (Past 12 Hours) Vital Signs Temp Pulse Pulse Resp BP Pulse Ox O2 Del Method 11/21/22 15:43 60 11/21/22 11:21 36.5 C 62 16 135/83 91 Room Air 11/21/22 11:08 Nasal Cannula 11/21/22 08:00 66 11/21/22 08:15 36.9 C 64 16 154/88 H 94 Room Air O2 Flow Rate 11/21/22 15:43 11/21/22 11:21 11/21/22 11:08 2 11/21/22 08:00 11/21/22 08:15 Laboratory Results Short CBC 11/21/22 Range/Units 06:07 WBC 11.00 H (4.8-10.8) K/ul Hgb 11.7 L (14.0-18.0) g/dl Hct 33.4 L (42.0-52.0) % Plt Count 224 (130-400) K/uL BMP 11/21/22 06:07 Sodium 137 Potassium 3.7 Chloride 103 Carbon Dioxide 29 BUN 15 Creatinine 0.51 L Glucose 134 H Calcium 8.2 L
[2022-11-21] MEDS: LACTATED RINGER'S 1,000 ML IV SCH (16:59)
[2022-11-21] MEDS ORDERED: ACETAMINOPHEN 1,000 MG/100 ML VIAL IV STA (17:38)
[2022-11-22] MEDS: INSULIN ASPART PER UNIT CHARGE SC SCH ×4 (00:57→18:20)
[2022-11-22] MEDS: LACTATED RINGER'S 1,000 ML IV SCH ×4 (00:59→16:36)
[2022-11-22] MEDS: dexAMETHasone 4 MG in SYRINGE 0 ML IV SCH ×3 (05:35→18:29)
[2022-11-22 07:41] LABS: Hematocrit (blood only) 38.6 % (42.0-52.0); Hemoglobin 13.5 g/dl (14.0-18.0); Mean Corpuscular Hemoglobin 30.8 pg (25.0-34.0); Mean Corpuscular Volume 87.9 fL (80.0-100.0); Mean Platelet Volume 8.7 fL (9.4-12.4); Platelet Count 239 K/uL (130-400); RDW Coefficient of Variation 13.7 % (11.5-14.5); RDW Standard Deviation 44.4 fL (36.4-46.3); Red Blood Count 4.39 M/uL (4.70-6.10); White Blood Count 9.03 K/ul (4.8-10.8)
[2022-11-22 07:48] LABS: BUN Creatinine Ratio 25.9 (10-20); Calcium 8.5 mg/dl (8.6-10.3); Creatinine Clr Calc Pharmacy 138.9 ml/min; Est GFR (African American) 126.8 ml/min; Est GFR (Non-African American) 109.4 ml/min; Phosphorus 2.5 mg/dl (2.5-4.9); Potassium 3.9 mmol/L (3.5-5.1)
[2022-11-22] MEDS ORDERED: TPN/PPN CONSULT PHARMACY ONE (09:06)
[2022-11-22] MEDS: CEFEPIME 2,000 MG in SYRINGE 0 ML IV SCH ×2 (09:13→16:28)
[2022-11-22] MEDS: PANTOprazole 40 MG in SYRINGE 0 ML IV SCH (09:13)
[2022-11-22] MEDS ORDERED: TPN/PPN CONSULT PHARMACY PRN (09:18)
[2022-11-22] MEDS: MULTI VIT W/MINERALS LIQUID 15 ML UDP NG SCH (10:17)
[2022-11-22 10:19] LABS: Magnesium 2.1 mg/dl (1.7-2.4)
--- NOTE | 2022-11-22 10:49 | Pharmacy Report ---
Pharmacy PN Initial Consult - Date of Service November 22, 2022 - Scope Pharmacy has been consulted to manage parenteral nutrition orders and order appropriate labs. As part of the Nutrition Support Team guidelines, pharmacy will work in conjunction with dietary when determining the patients caloric needs. - Subjective The patient is a 67 year old M admitted on 11/18/22 17:55 for septic shock, aspiration pneumonia. Patient is to receive parenteral nutrition for NPO > 3 days and patient refusal of enteral nutrition. Pertinent PMH: meningioma melanoma of eye anxiety - Objective Height: 5 ft 10 in Weight: 77.1 kg Diet: NPO Vascular Access:: 20G peripheral in wrist Intake & Output (Last 24Hrs): Intake & Output 11/20/22 11/21/22 11/22/22 11/23/22 06:59 06:59 06:59 06:59 Intake Total 4032.405 / 4032.405 3241.250 / 3241.250 2607 / 2607 1000 / 1000 Output Total 775 / 775 2525 / 2525 2325 / 2325 Balance 3257.405 / 3257.405 716.250 / 716.250 282 / 282 1000 / 1000 Weight 77.8 kg 77.1 kg Laboratory Data (Last 24 Hrs):: 11/22/22 06:22 Sodium 136 Potassium 3.9 Chloride 100 Carbon Dioxide 31 BUN 14 Creatinine 0.54 L Glucose 127 H Calcium 8.5 L Phosphorus 2.5 Magnesium 2.1 Triglycerides 120 Recent Pertinent Medications:: Pantoprazole 40mg IV BID LR @ 125cc/hr Cefepime 2gm Q 8hrs Dexamethasone 4mg IV Q 6 hrs Novolog SQ Q 6 hrs Nutrition Assessment:: Please refer to the Notes section of the EMR for the most recent bait packer note. - Assessment Patient admitted on 11/18 for resp failure, aspiration pneumonia, septic shock. Pharmacy was consulted to initiate PPN today as patient has been NPO > 3 days. Patient and family requesting parenteral nutrition. Patient has refused enteral nutrition via NG tube. Will proceed with PPN today, however enteral route is the preferred modality to deliver nutrition support and carries less risks. If patient cannot take PO, would recommend provider revisit the recommendation to use the enteral route via feeding tube as this is the optimal method of nutrition support when there is no contraindication. Provider made aware PPN will only provide ~50-60% of caloric needs. Today's chemistry reviewed. No abnormalities noted. Patient does have IV steroid ordered. BSGs thus far acceptable and no need for insulin on current dose. Will follow BSG trend once PPN initiated. No insulin will be added to PPN as pt has no documented h/o DM and he does have order for SQ Novolog Q 6 hrs should BSGs rise. Fluid status discussed with Provider. No fluid concerns or restrictions at this time. - Plan For day 1 of PN administration, the following will be ordered: Macronutrients Amino acids 85 grams/day Dextrose 100 grams/day Lipids 50 grams/day Micronutrients Combined electrolytes 0 mL - contains 35 mEq Na, 20 meq K, 4.5 mEq Ca, 5 mEq Mg, 35 mEq Cl, 29.5 mEq acetate per 20 mL Sodium phosphate 0 MMol Sodium chloride 125 mEq Sodium acetate 40 mEq Potassium phosphate 24 mMol Potassium chloride 0 mEq Potassium acetate 40 mEq Magnesium sulfate 16.24 mEq Calcium gluconate 4.65 mEq Multivitamins 10 mL Trace Elements 1 mL Additional additives: n/a Total volume 2123 mL (AA+Dextrose) + 250mL from Lipids to be infused over 24 hrs will provide 1180 kcal/day Final osmolarity 867.8 mOsm/L (maximum for PPN is 900 mOsm/L) Labs to be ordered per PN order protocol Pharmacy will follow and adjust parenteral nutrition orders on a daily basis. Thank you.
--- NOTE | 2022-11-22 12:59 | Palliative Care Consultation ---
Date of Consultation November 22, 2022 Assessment & Plan (1) Palliative care encounter: I spoke with Mr. Luna, his son, Izabel, his brother and good friend, Mirza, at bedside. He tells me that he doesn't feel that his was acting in his best interest with referral to hospice and that his wish is to continue to have treatment to prolong his life. We discussed concern that oncology was not able to offer additional systemic treatment. We also discussed risk of herniation or further neurological decline with tumor progression and associated edema. He tells me that he is hopeful that the tumor with "move out of the way and allow the fluid to drain". He is very concerned about his nutritional status and adamant that he would like artificial nutrition. He tells me that he understands that he can't eat by mouth and is ok with that. We discussed risks and limitations with parenteral feeding. He tells me that he had TPN in the past and understands what is involved. He declines PEG tube. I asked him if there were limitations to what he would be willing to go through to prolong his life and he told me that being intubated was awful. He is currently a limited code with no intubation. I asked him what "living" meant to him and he was not able to answer that question. His son, Izabel, is his POA and has a copy of a living will that was completed a few years ago after his diagnosis. At that time, he said that he did not want artificial feeding or any life prolonging measures. Per his request, I spoke with Izabel outside the room. He understands that his father's prognosis is poor and has reviewed the living will but he feels that his father has hope right now and does not want to undermine that. We discussed never giving up hope but sometimes changing what we hope for. He tells me that he knows he will likely have to make difficult decisions regarding his father's care, perhaps within the next few days. He is prepared to do that and would want comfort care at that time but does want to honor his father's wish for continued disease management and interventions at this time. Discussed with Dr. Neri. History of Present Illness Reason for Consultation: goals of care Requesting Physician: Dr. Neri Attending Physician: Lee Neri MD History of Present Illness 67 yo gentleman with history of meningioma who is followed by Dr. Fournier at [place]. He saw her in September and was told that keytruda was not helping and that there were no further options for treatment. He has been on dexamethasone but has had progressive neurological decline with dysarthria, facial droop, dysphagia and respiratory failure secondary to aspiration pneumonia. He was intubated for a short period of time during this admission. CT shows large destructive mass lesion at base of skull involving ethmoid, sphenoid, occipital and temporal bone with soft tissue extension into posterior fossa compressing right ashkan. He and his had apparently met with hospice in [place] but Mr. Luna tells me that he didn't want to be "drugged up with morphine" and wanted to continue treatment to prolong his life. He is currently NPO due to dysphagia and is very concerned about his receiving nutrients. Allergies Allergy/AdvReac Type Severity Reaction Status Date / Time iodine Allergy Unknown SWELLING Verified 11/18/22 19:43 shellfish derived Allergy Unknown SWELLING Verified 11/18/22 19:43 Home Medications Medication Instructions Recorded Confirmed Type acetaminophen 650 mg rectal 650 mg MO Q4 PRN MILD PAIN/FEVER 11/18/22 11/18/22 History suppository haloperidol lactate 2 mg/mL oral 1 mg PO Q4 PRN 11/18/22 11/18/22 History concentrate nausea/vomiting/agitation hyoscyamine sulfate 0.125 mg tablet 0.125 mg sublingual Q4 PRN 11/18/22 11/18/22 History TERMINAL SECRETIONS lorazepam 1 mg tablet See Rx Instructions .Route .COMPLEX 11/18/22 11/18/22 History lorazepam 1 mg tablet See Rx Instructions .Route 11/18/22 11/18/22 History .COMPLEX NTE 6 morphine concentrate 100 mg/5 mL 5 mg PO .Q 2 HOURS PRN severe 11/18/22 11/18/22 History (20 mg/mL) oral solution pain/sob Patient History Social History Smoking Status: Never smoker Do You Dip or Chew Tobacco: No; Hx Alcohol Use: No Hx Substance Use: Yes Last Used Substance: Days (ago) Preferred Language: [place] Communication Ability: Unable Employee Relations Specialist Required: No Beliefs That Will Affect Care: None Current Living Situation: Other Current Living Situation Comment: ex Other Information That Helps Us Care for You: No Feels Safe at Home: Yes Assistive Devices: Cane Review of Systems Review of Systems: Pain 0/3 Dyspnea 0/3 Nausea 0/3 Anxiety 1/3 Drowsiness 0/3 Physical Exam Constitutional: + ill appearing Respiratory: normal respiratory effort; no labored breathing Cardiovascular: Rate/Rhythm: regular rate and regular rhythm Neurologic: right facial droop, dysarthria Results & Data Vital Signs (Past 12 Hours) Vital Signs Temp Pulse Pulse Resp BP Pulse Ox O2 Del Method 11/22/22 11:22 Nasal Cannula 11/22/22 11:10 97.3 F L 64 20 168/99 H 93 Nasal Cannula 11/22/22 07:05 97.3 F L 62 16 169/95 H 92 Nasal Cannula 11/22/22 03:00 97.3 F L 60 16 164/97 H 94 Nasal Cannula O2 Flow Rate 11/22/22 11:22 3 11/22/22 11:10 3 11/22/22 07:05 3 11/22/22 03:00 PG Care Time/CCT Total # of Minutes Spent Total Time Spent: 80 Total Time Spent with Patient: Total time spent is greater than 50% in coordination of care (as documented) at patient's floor/unit and/or counseling patient:[id number] goals of care, code status, prognosis, surrogate decision maker, patient and family education and support, coordination of care Coding Level of Care Code 72645 INT INP/OBS CARE 3/75MIN Diagnoses Palliative care encounter Z51.5
[2022-11-22] MEDS: ACETAMINOPHEN 1,000 MG/100 ML VIAL IV PRN (14:38)
[2022-11-22] MEDS ORDERED: [UNRECOGNIZED DRUG - OTHER] IV SCH (16:00)
[2022-11-22] MEDS ORDERED: PERIPHERAL TPN IV SCH (16:00)
[2022-11-22] MEDS ORDERED: [UNRECOGNIZED DRUG - REMARK] ONE (16:00)
[2022-11-22] MEDS ORDERED: CLINOLIPID 20% IV FAT EMULSION 250 ML IV SCH (16:00)
--- NOTE | 2022-11-22 17:19 | Hospitalist Progress Note ---
Date of Service November 22, 2022 Assessment & Plan (1) Septic shock: (2) Pneumonia: Plan: Acute respiratory failure with hypoxia Septic shock Multifocal aspiration pneumonia --S/P Extubation on 11/20/22 --Off Pressors since 11/20/22 --Chest CTA: No acute pulmonary embolism. Airspace consolidation in the RIGHT lower lobe, and to a lesser extent RIGHT middle lobe and RIGHT upper lobe, consistent with multifocal pneumonia. Correlate for aspiration given that the patient is intubated. --Blood Cultures: Negative to date --MRSA Screen negative --Sputum culture growing pansensitive Klebsiella --Respiratory panel negative --Urine for Legionella:Not detected Appreciate critical care input Decrease IV fluids N.p.o. for now Was on Tube feeds Speech therapy consulted Continue IV cefepime Titrate down IV Solu-Medrol as able Saturating low 90s on 3 L supplemental oxygen Very high risk for aspiration, pending VFSS Started on PPN Appreciate palliative care input Hypophosphatemia Replete electrolytes as needed Monitor Anxiety Ativan as needed Hold sedatives meds to prevent excess sedation (3) Meningioma determined by biopsy of brain: Plan: H/O Meningioma initial diagnosis 2016 Has been on Keytruda and also dexamethasone 4 mg twice daily --CT head:Mild prominence of the lateral and third ventricles. No overt hydrocephalus at this time. Consider comparison to prior studies which are not currently available and/or follow-up to exclude developing hydrocephalus. The mass lesion could compress the aqueduct of Sylvius. 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 There appears to be a soft tissue component extending at least 2.5 cm into the posterior fossa compressing the right side of the ash[place]. --Was initially on hospice status Follows with oncology as outpatient Palliative care on board Continue IV dexamethasone as above Very poor prognosis Plan DVT Px: SCDs Re: Brain mets Code Status Conditional code Admission and Anticipated Discharge Date Admission Date: November 18, 2022 Subjective Patient is seen and examined at bedside Less anxious today Reports been headache to RN Vision more clear as per patient/family Discussed with palliative care today "I need Nutrition" Denies any chest pain, dyspnea, cough Review of Systems Review of Systems: All systems reviewed & are unremarkable except as noted in Subjective Physical Exam Physical Exam: Physical Exam: Vitals signs as noted above General Appearance:Moderately built and nourished, no apparent distress Head: normocephalic, Atraumatic Eyes: normal inspection, L eye blindness, R pupil dilated Neck: supple, Trachea midline Respiratory/Chest: Decreased breath sounds, minimal basal crackles , No accessory muscle use Cardiovascular: S1, S2, No murmur Abdomen/GI:Soft, Non tender, Bowel sounds present Extremities/Musculoskeletal:normal inspection, Trace pedal edema Neurologic/Psych:AAO, +Dysarthria, facial droop Skin: normal color, warm Results & Data Results & Data Vital Signs (Past 12 Hours) Vital Signs Temp Pulse Pulse Pulse Resp BP Pulse Ox 11/22/22 16:17 36.5 C 62 16 153/91 H 90 11/22/22 14:53 64 11/22/22 13:48 57 L 11/22/22 11:22 11/22/22 11:10 36.3 C L 64 20 168/99 H 93 11/22/22 07:05 36.3 C L 62 16 169/95 H 92 O2 Del Method O2 Flow Rate 11/22/22 16:17 Nasal Cannula 3 11/22/22 14:53 11/22/22 13:48 11/22/22 11:22 Nasal Cannula 3 11/22/22 11:10 Nasal Cannula 3 11/22/22 07:05 Nasal Cannula 3 Laboratory Results Short CBC 11/22/22 Range/Units 06:22 WBC 9.03 (4.8-10.8) K/ul Hgb 13.5 L (14.0-18.0) g/dl Hct 38.6 L (42.0-52.0) % Plt Count 239 (130-400) K/uL BMP 11/22/22 06:22 Sodium 136 Potassium 3.9 Chloride 100 Carbon Dioxide 31 BUN 14 Creatinine 0.54 L Glucose 127 H Calcium 8.5 L
[2022-11-22] MEDS ORDERED: METOCLOPRAMIDE HCL INJ 5 MG/ML 2 ML VIAL IV ONE (18:43)
[2022-11-22] MEDS ORDERED: STOP CLINOLIPID SCH (22:00)
[2022-11-23] MEDS: INSULIN ASPART PER UNIT CHARGE SC SCH ×3 (00:01→12:31)
[2022-11-23] MEDS: CEFEPIME 2,000 MG in SYRINGE 0 ML IV SCH ×3 (00:02→15:14)
[2022-11-23] MEDS: dexAMETHasone 4 MG in SYRINGE 0 ML IV SCH ×4 (00:02→21:43)
[2022-11-23] MEDS: LORazepam 2 MG/1 ML VIAL IV PRN (00:07)
[2022-11-23 07:00] LABS: BUN Creatinine Ratio 34.6 (10-20); Calcium 8.2 mg/dl (8.6-10.3); Creatinine Clr Calc Pharmacy 144.3 ml/min; Est GFR (African American) 128.8 ml/min; Est GFR (Non-African American) 111.1 ml/min; Magnesium 2.2 mg/dl (1.7-2.4); Phosphorus 2.2 mg/dl (2.5-4.9)
[2022-11-23] MEDS ORDERED: PANTOprazole 40 MG in SYRINGE 0 ML IV SCH (09:00)
[2022-11-23] MEDS: MULTI VIT W/MINERALS LIQUID 15 ML UDP NG SCH (09:33)
[2022-11-23] MEDS ORDERED: SODIUM PHOSPHATE 3 MMOL/1 ML INFUSION IV ONE (09:54)
[2022-11-23] MEDS ORDERED: SODIUM PHOSPHATE 21 MMOL in DEXTROSE 5% 500 ML IV ONE (10:15)
[2022-11-23] MEDS ORDERED: ALBUTEROL 0.083% NEBU SOLN 3 ML VIAL NEB PRN (10:56)
--- NOTE | 2022-11-23 11:23 | XRay Report ---
XR chest 1V portable CLINICAL HISTORY: Hypoxia. COMPARISON STUDY: Chest CT November 18, 2022. Chest radiograph November 19, 2022. FINDINGS: The endotracheal and nasogastric tubes have been removed. Right internal jugular central li ne has been removed. There is no pneumothorax. Small right pleural effusion is noted. Extensive right lower lung consolidation has slightly progressed with volume loss. Diffuse reticulonodular interstit ial thickening within the remainder of the right lung is noted. Left basilar opacity is again noted. IMPRESSION: 1. Bibasilar consolidation, greater on the right. These have mildly increased and favor pneumonia or aspiration pneumonitis. Associated right lower lobe volume loss. 2. Small right pleural effusion. ACT 112: Negative or not required by law. Electronically signed by: Subhash Strickland M.D. 11/23/2022 11:21 AM
[2022-11-23 11:43] LABS: Base Excess ABG 6.6 mEq/L (-9-1.8); HCO3 ABG 31 mmol/L (19-24); PCO2 ABG 40 mmHg (35-46); PO2 ABG 55 mmHg (80-95); pH ABG 7.49 (7.35-7.45)
[2022-11-23 11:52] LABS: Allen Test Pos (Pos); Oxygen Saturation ABG 88.7 % (90-95)
--- NOTE | 2022-11-23 12:47 | Palliative Care Progress Note ---
Date of Service November 23, 2022 Assessment & Plan (1) Respiratory failure: Plan: Through the course of the morning, Mr. Luna has had progressive hypoxia with increased O2 requirement and is now on 40L of 100%FiO2. He is drowsy and resting comfortably. Chest xray indicates increased bibasilar consolidation consistent with aspiration pneumonia/pneumonitis. (2) Palliative care encounter: Plan: I called his son, Izabel, to update. Family meeting is planned for 2pm. Dr. Neri aware. I met with Izabel and also spoke with his sister. Dr. Kemp was present for part of family meeting. Izabel tells me that his father has indicated that he is approaching his dying time. We discussed progressive respiratory failure and continued aspiration despite treatment and Izabel asked about taking his father home with hospice. At this point, I'm not sure that he would be stable enough for transfer home. We discussed transition to comfort measures here in the hospital and if he is stable, we will arrange transfer home with hospice. We discussed what would be involved with comfort measures, including focus on medications for comfort and symptom management rather than medications for disease management. We also discussed use of oxygen for comfort rather than maintaining a specific sat. He asked about prognosis which is likely hours to days. Per his request, we discussed this again with Mr. Luna. He initially verbalizes understanding but is confused and perseverating about opening the window and phone messages that are not on his phone. Discussed with RN, case management and Dr. Neri Admission and Anticipated Discharge Date Admission Date: November 18, 2022 Subjective Increased difficulty managing oral secretions. Confused at times. Denies pain. Complains of headache but tells me that he's doing ok. Review of Systems Review of Systems: ESAS Pain 1/3 Dyspnea 1/3 Nausea 0/3 Anxiety 0/3 Drowsiness 1/3 Physical Exam Constitutional: + ill appearing Respiratory: audible oral and tracheal secretions requiring suctioning coughs with small amount of water on sponge audible rhonchi Cardiovascular: Rate/Rhythm: regular rate and regular rhythm Neurologic: confused at times dysarthria Genitourinary: incontinent Results & Data Vital Signs (Past 12 Hours) Vital Signs Temp Pulse Pulse Resp BP Pulse Ox O2 Del Method 11/23/22 11:38 98.2 F 62 20 138/87 84 L Nasal Cannula 11/23/22 11:38 66 24 87 L High Flow Nasal Cannula 11/23/22 08:00 61 11/23/22 09:34 Nasal Cannula 11/23/22 07:37 98.1 F 60 20 150/90 H 90 Room Air 11/23/22 03:23 97.5 F L 71 22 130/82 92 Nasal Cannula O2 Flow Rate FiO2 11/23/22 11:38 6 11/23/22 11:38 40 100 11/23/22 08:00 11/23/22 09:34 3 11/23/22 07:37 11/23/22 03:23 3.0 PG Care Time/CCT Total # of Minutes Spent Total Time Spent: 99 Total Time Spent with Patient: Total time spent is greater than 50% in coordination of care (as documented) at patient's floor/unit and/or counseling patient: [id number] symptom management, goals of care, patient and family education and support, coordination of care Coding Level of Care Code 81047 Prolonged Care-adt'l 30m Diagnoses Respiratory failure J96.90 Palliative care encounter Z51.5
[2022-11-23] MEDS: ACETAMINOPHEN 1,000 MG/100 ML VIAL IV PRN ×2 (14:56→21:43)
[2022-11-23] MEDS ORDERED: GLYCOPYRROLATE 0.2 MG/ML VIAL IV PRN (15:09)
[2022-11-23] MEDS ORDERED: ONDANSETRON INJ 2 MG/ML 2 ML VIAL IV PRN (15:09)
[2022-11-23] MEDS ORDERED: [UNRECOGNIZED DRUG - OTHER] IV SCH (16:00)
[2022-11-23] MEDS ORDERED: PERIPHERAL TPN IV SCH (16:00)
[2022-11-23] MEDS ORDERED: CLINOLIPID 20% IV FAT EMULSION 250 ML IV SCH (16:00)
--- NOTE | 2022-11-23 16:28 | Hospitalist Progress Note ---
Date of Service November 23, 2022 Assessment & Plan (1) Septic shock: (2) Pneumonia: Plan: Acute respiratory failure with hypoxia Septic shock Multifocal aspiration pneumonia --S/P Extubation on 11/20/22 --Off Pressors since 11/20/22 --Chest CTA: No acute pulmonary embolism. Airspace consolidation in the RIGHT lower lobe, and to a lesser extent RIGHT middle lobe and RIGHT upper lobe, consistent with multifocal pneumonia. Correlate for aspiration given that the patient is intubated. --Blood Cultures: Negative to date --MRSA Screen negative --Sputum culture growing pansensitive Klebsiella --Respiratory panel negative --Urine for Legionella:Not detected Appreciate critical care input Decrease IV fluids N.p.o. for now Was on Tube feeds Speech therapy consulted Continue IV cefepime Titrate down IV Solu-Medrol as able Saturating low 90s on 3 L supplemental oxygen Very high risk for aspiration, pending VFSS Started on PPN Appreciate palliative care input --- Currently transitioned to comfort measures only as per patient/family. We will transfer out of PCU Will consider home with hospice Family agrees with current care given very poor prognosis. Hypophosphatemia Replete electrolytes as needed Monitor Anxiety Ativan as needed Hold sedatives meds to prevent excess sedation (3) Meningioma determined by biopsy of brain: Plan: H/O Meningioma initial diagnosis 2016 Has been on Keytruda and also dexamethasone 4 mg twice daily --CT head:Mild prominence of the lateral and third ventricles. No overt hydrocephalus at this time. Consider comparison to prior studies which are not currently available and/or follow-up to exclude developing hydrocephalus. The mass lesion could compress the aqueduct of Sylv[place]. 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 There appears to be a soft tissue component extending at least 2.5 cm into the posterior fossa compressing the right side of the [place]. --Was initially on hospice status Follows with oncology as outpatient Palliative care on board Titrate down IV dexamethasone Very poor prognosis Plan DVT Px: SCDs Re: Brain mets Code Status DNI/DNR Admission and Anticipated Discharge Date Admission Date: November 18, 2022 Subjective Patient is seen and examined at bedside Patient clinically deteriorated this morning He developed significant respiratory failure despite aggressive oral suctioning, high flow oxygen supplementation Given very poor prognosis, discussed with palliative care Patient states having minimal headache this morning His CODE STATUS changed to DNI DNR on discussion with patient's family by palliative care His transition to comfort measures currently. Review of Systems Review of Systems: Other Physical Exam Physical Exam: Physical Exam: Vitals signs as noted above General Appearance:Moderately built and nourished, no apparent distress Head: normocephalic, Atraumatic Eyes: normal inspection, L eye blindness, R pupil dilated Neck: supple, Trachea midline Respiratory/Chest: Decreased breath sounds, minimal basal crackles , No accessory muscle use Cardiovascular: S1, S2, No murmur Abdomen/GI:Soft, Non tender, Bowel sounds present Extremities/Musculoskeletal:normal inspection, Trace pedal edema Neurologic/Psych:AAOX1, +Dysarthria, facial droop Skin: normal color, warm Results & Data Results & Data Vital Signs (Past 12 Hours) Vital Signs Temp Pulse Pulse Resp BP Pulse Ox O2 Del Method 11/23/22 16:05 63 18 94 High Flow Nasal Cannula 11/23/22 15:22 36.4 C L 63 22 144/89 H 91 High Flow Nasal Cannula 11/23/22 15:04 67 11/23/22 11:38 36.8 C 62 20 138/87 84 L Nasal Cannula 11/23/22 11:38 66 24 87 L High Flow Nasal Cannula 11/23/22 08:00 61 11/23/22 09:34 Nasal Cannula 11/23/22 07:37 36.7 C 60 20 150/90 H 90 Room Air O2 Flow Rate FiO2 11/23/22 16:05 40 85 11/23/22 15:22 40 95 11/23/22 15:04 11/23/22 11:38 6 11/23/22 11:38 40 100 11/23/22 08:00 11/23/22 09:34 3 11/23/22 07:37 Laboratory Results BMP 11/23/22 05:46 Sodium 136 Potassium 4.0 Chloride 100 Carbon Dioxide 32 BUN 18 Creatinine 0.52 L Glucose 154 H Calcium 8.2 L
[2022-11-23] MEDS ORDERED: STOP CLINOLIPID SCH (22:00)
[2022-11-24] MEDS: dexAMETHasone 4 MG in SYRINGE 0 ML IV SCH ×2 (05:59→12:50)
[2022-11-24 09:09] LABS: Calcium 8.5 mg/dl (8.6-10.3); Creatinine Clr Calc Pharmacy 145.5 ml/min; Est GFR (African American) 130.9 ml/min; Est GFR (Non-African American) 112.9 ml/min; Magnesium 2.1 mg/dl (1.7-2.4); Phosphorus 2.3 mg/dl (2.5-4.9); Potassium 4.1 mmol/L (3.5-5.1)
--- NOTE | 2022-11-24 11:12 | Communication Note ---
Date of Service: November 24, 2022 Brief Palliative Medicine Note Oxygen orders adjusted for comfort focused de escalation. Encouraged to use meds as ordered to relieve distress. We can move to [facility] infusion if current prn meds are not enough, please page me as needed to assist. TS 12min Thank you for allowing us to participate in the ongoing care of this patient. Please don't hesitate to call or page with any additional concerns. Dr. Zakia Heard DNP Director, Palliative Care
--- NOTE | 2022-11-24 11:19 | Communication Note ---
Date of Service: November 24, 2022 Although the role of high flow oxygen via nasal cannula (HFNC) in patients with life-limiting respiratory illnesses is not well-defined, weaning high flow oxygen in a conscious and interactive patient at the end of life presents unique challenges but allows for meaningful life-closure moments. Recommended Protocol: * Provider, RN, and RT discuss plan * engage additional MDT as needed: social work, track rider, etc. * Stop monitors, ensure working IV * Pre-wean medications: Begin hydromorphone infusion, prn dose and Lorazepam 1mg IV * Consider Hydromorphone 0.5-1mg per hour infusion if patient and family agree * Consider Hydromorphone 1mg IV Q10min prn air hunger * Four Down Titrations: Approximately 25% Reduction every 10 minutes (reduce FiO2 and liter flow) - Medicate - Wait for 10 min for peak effect, decrease liter flow and FiO2 by 25% followed by immediate repeat bolusing - Wait 10 min then decrease liter flow and FiO2 by 25%, followed by immediate repeat bolusing - Give another Lorazepam 1mg IV bolus - Wait another 10 min then decrease liter flow and FiO2 by 25% followed by immediate repeat bolusing - Wait another 10 min then decrease liter flow and FiO2 by the final 25% followed by immediate repeat bolusing - Give another 1mg Lorazepam 1mg IV if needed * Observe for and treat symptoms * Provide anticipatory guidance Patient's son Izabel expressed desire to bring pt home with hospice during his family meeting with Dr Nix yesterday. At that time she advised him she was unsure that could happen but we would work on weaning his HFNC and try to get him to a modality of oxygen that can be safely delivered at home with hospice, this needs to be under 10lpm flow vis NC or mask. I discussed with El RT and nursing. Today's goal will be de escalating high flow in a controlled manner while assuring patient remains comfortable and free of distress. TS 25min Thank you for allowing us to participate in the ongoing care of this patient. Please don't hesitate to call or page with any additional concerns. Dr. Zakia Heard DNP Director, Palliative Care
[2022-11-24] MEDS: LORazepam 2 MG/1 ML VIAL IV PRN ×2 (11:27→15:27)
[2022-11-24] MEDS: MoRPHine SULFATE 2 MG/ML CARP IV PRN ×10 (12:48→19:05)
--- NOTE | 2022-11-24 14:41 | Hospitalist Progress Note ---
Date of Service November 24, 2022 Assessment & Plan (1) Septic shock: (2) Pneumonia: Plan: Acute respiratory failure with hypoxia Septic shock Multifocal aspiration pneumonia Patient is a 67-year-old male with history of meningioma (history of resection/radiation treatment, currently on Keytruda) presented to the hospital with septic shock secondary to aspiration pneumonia He was admitted to ICU; was on multiple pressors on presentation CTA chest on admission was personally reviewed; found to have airspace consolidation in right lower lobe. Patient was extubated on 11/20. Also, off pressors since same date. Sputum culture showed pansensitive Klebsiella Discussion was done by palliative care with family; CODE STATUS changed to DNR/DNI as per patient wishes. Continue comfort care measures for now. Morphine for dyspnea/pain. Ativan as needed for agitation. Plan for home with hospice if patient remains stable. Hypophosphatemia Replete electrolytes as needed Monitor Anxiety Ativan as needed (3) Meningioma determined by biopsy of brain: Plan: H/O Meningioma initial diagnosis 2015 Has been on Keytruda and also dexamethasone 4 mg twice daily --CT head:Mild prominence of the lateral and third ventricles. No overt hydrocephalus at this time. Consider comparison to prior studies which are not currently available and/or follow-up to exclude developing hydrocephalus. The mass lesion could compress the aqueduct of [place]. 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 There appears to be a soft tissue component extending at least 2.5 cm into the posterior fossa compressing the right side of the [place]. An IV dexamethasone Plan DVT Px: SCDs Re: Brain mets Discussed with his son over the phone. Goal is for comfort care measures. Time spent evaluating patient, direct bedside care, chart review, placing orders, interpretation of diagnostic studies, discussion with consultants, patient, and family members, as well as other required patient management activities is 60 minutes. Please note the above document was generated using voice recognition software. It may contain grammatical, syntax or spelling errors. Any formal questions or concerns about the content, text or information contained within the body of this dictation should be directly addressed to the provider for clarification Code Status DNI/DNR, comfort care. Admission and Anticipated Discharge Date Admission Date: November 18, 2022 Subjective Patient seen and examined at bedside. He appears to be in significant respiratory distress; requiring high flow nasal cannula. Appears tired. Reports that he is comfortable for now. Review of Systems Review of Systems: All systems reviewed & are unremarkable except as noted in Subjective Physical Exam Physical Exam: Constitutional: In significant respiratory distress. Appears tired. Respiratory: Bilateral basilar decreased air entry. Cardiovascular: RRR, no murmur, no edema Vessels: no JVD or carotid bruit Chest: normal inspection of chest Abdomen: normal bowel sounds, soft, nontender, no hepatosplenomegaly Musculoskeletal: no cyanosis or clubbing, extremities motor strength 5/5 Skin: no rashes, warm and dry normal turgor Neurologic: PERRL, EOMI, accommodation nl, no face palsy, no dysarthria CN's II- XI intact bilaterally and moves all extremities Psychiatric: Appears lethargic and tired. Results & Data Results & Data Vital Signs (Past 12 Hours) Vital Signs Pulse Resp Pulse Ox O2 Del Method O2 Flow Rate FiO2 11/24/22 10:46 57 L 17 87 L High Flow Nasal Cannula 40 85 Laboratory Results Laboratory Results WBC 9.03 K/ul (4.8-10.8) 11/22/22 06:22 RBC 4.39 M/uL (4.70-6.10) L 11/22/22 06:22 Hgb 13.5 g/dl (14.0-18.0) L 11/22/22 06:22 POC Hgb 9.5 g/dl (14.0-18.0) L 11/20/22 04:17 Hct 38.6 % (42.0-52.0) L 11/22/22 06:22 POC Hct 28 % (42-52) L 11/20/22 04:17 MCV 87.9 fL (80.0-100.0) 11/22/22 06:22 MCH 30.8 pg (25.0-34.0) 11/22/22 06:22 MCHC 35.0 g/dL (32.0-36.0) 11/22/22 06:22 RDW Std Deviation 44.4 fL (36.4-46.3) 11/22/22 06:22 RDW Coeff of Chhaya 13.7 % (11.5-14.5) 11/22/22 06:22 Plt Count 239 K/uL (130-400) 11/22/22 06:22 MPV 8.7 fL (9.4-12.4) L 11/22/22 06:22 Immature Gran % (Auto) 0.8 % 11/18/22 20:15 Neut % (Auto) 87.9 % 11/18/22 20:15 Lymph % (Auto) 3.4 % 11/18/22 20:15 Jackson % (Auto) 7.5 % 11/18/22 20:15 Eos % (Auto) 0.2 % 11/18/22 20:15 Baso % (Auto) 0.2 % 11/18/22 20:15 Neut # (Auto) 11.42 K/uL (1.40-6.50) H 11/18/22 20:15 Lymph # (Auto) 0.44 K/uL (1.2-3.4) L 11/18/22 20:15 Jackson # (Auto) 0.97 K/uL (0.11-0.59) H 11/18/22 20:15 Eos # (Auto) 0.02 K/uL (0-0.50) 11/18/22 20:15 Baso # (Auto) 0.03 K/uL (0-0.2) 11/18/22 20:15 Immature Gran # (Auto) 0.11 K/uL (0.01-0.20) 11/18/22 20:15 Dohle Bodies 2+ 11/18/22 16:49 Sample Site Art Line 11/20/22 04:17 POC pH 7.43 (7.35-7.45) 11/20/22 04:17 POC pCO2 37 mmHg (35-46) 11/20/22 04:17 POC pO2 87 mmHg (80-95) 11/20/22 04:17 POC HCO3 25 jose juan/L (19-24) H 11/20/22 04:17 POC Total CO2 26 mmol/L (24-31) 11/20/22 04:17 POC Base Excess 0.0 jose juan/L (-9-1.8) 11/20/22 04:17 ABG pH 7.49 (7.35-7.45) H 11/23/22 11:22 ABG pH (Temp Correct) 7.443 (7.35-7.45) 11/20/22 04:17 ABG pCO2 40 mmHg (35-46) 11/23/22 11:22 ABG pCO2 (Temp Corrct 36 mmHg (35-46) 11/20/22 04:17 ABG pO2 55 mmHg (80-95) L 11/23/22 11:22 POC ABG pO2 at Pt Temp 83 11/20/22 04:17 ABG HCO3 31 mmol/L (19-24) H 11/23/22 11:22 POC ABG O2 Sat 97.0 % (90-95) H 11/20/22 04:17 ABG O2 Saturation 88.7 % (90-95) L 11/23/22 11:22 ABG Base Excess 6.6 mEq/L (-9-1.8) H 11/23/22 11:22 Seb Test Pos (Pos) 11/23/22 11:22 VBG pH 7.46 (7.36-7.41) H 11/18/22 16:49 VBG pCO2 40 mmHg (38-50) 11/18/22 16:49 VBG pO2 58 mmHg 11/18/22 16:49 VBG HCO3 28 mmol/L 11/18/22 16:49 VBG O2 Saturation 89.2 % 11/18/22 16:49 VBG Base Excess 4.2 mEq/L 11/18/22 16:49 Oxygen Given 3 11/23/22 11:22 O2 Delivery Device Ventilator 11/20/22 04:17 POC O2 Rate 18 11/20/22 04:17 POC FiO2 40 % 11/20/22 04:17 Tidal Volume 480 11/20/22 04:17 PEEP 5 11/20/22 04:17 POC Sodium 134 mmol/L (135-144) L 11/20/22 04:17 Sodium 137 mmol/L (136-145) 11/24/22 07:34 POC Potassium 4.1 mmol/L (3.3-5.0) 11/20/22 04:17 Potassium 4.1 mmol/L (3.5-5.1) 11/24/22 07:34 POC Chloride 101 mmol/L (101-112) 11/18/22 16:54 Chloride 102 mmol/L (98-107) 11/24/22 07:34 Carbon Dioxide 31 mmol/L (21-32) 11/24/22 07:34 POC Total CO2 23 mmol/L (24-31) L 11/18/22 16:54 Anion Gap 4 (3-11) 11/24/22 07:34 POC Anion Gap 19.0 mmol/L (16-25) 11/18/22 16:54 POC BUN 18 mg/dl (7-18) 11/18/22 16:54 BUN 18 mg/dl (6-23) 11/24/22 07:34 Creatinine 0.50 mg/dl (0.6-1.4) L 11/24/22 07:34 POC Creatinine 0.8 mg/dl (0.6-1.3) 11/18/22 16:54 Est Cr Clr Drug Dosing 145.5 ml/min 11/24/22 07:34 Est GFR ( Amer) 130.9 ml/min 11/24/22 07:34 Est GFR (Non-Af Amer) 112.9 ml/min 11/24/22 07:34 BUN/Creatinine Ratio 36.0 (10-20) H 11/24/22 07:34 Glucose 110 mg/dl (70-99(Fasting)) H 11/24/22 07:34 POC Glucose 180 mg/dl (70-99) H 11/23/22 12:23 POC Glucose (other) 181 mg/dl (70-99) H 11/20/22 04:27 Lactate 1.3 mmol/L (0.4-2.0) 11/18/22 20:15 Calcium 8.5 mg/dl (8.6-10.3) L 11/24/22 07:34 POC Ioniz Calcium [place] 1.11 mmol/l (1.12-1.32) L 11/18/22 16:54 Phosphorus 2.3 mg/dl (2.5-4.9) L 11/24/22 07:34 Magnesium 2.1 mg/dl (1.7-2.4) 11/24/22 07:34 Iron 58 mcg/dl (35-175) 11/21/22 06:07 Unsaturated IBC 98 mcg/dl (155-355) L 11/20/22 04:34 Total Bilirubin 0.5 mg/dl (0.2-1.0) 11/19/22 05:07 AST 9 U/L (13-39) L 11/19/22 05:07 ALT 10 U/L (7-52) 11/19/22 05:07 Alkaline Phosphatase 53 U/L (34-104) 11/19/22 05:07 Troponin I High Sens 9.6 pg/ml (0-20) D 11/18/22 20:15 Total Protein 5.5 gm/dl (6.0-8.3) L 11/19/22 05:07 Albumin 2.9 gm/dl (3.4-5.0) L 11/19/22 05:07 Globulin 2.6 gm/dl (2.5-4.0) 11/19/22 05:07 Albumin/Globulin Ratio 1.1 (0.9-2) 11/19/22 05:07 Triglycerides 120 mg/dl (0-150) 11/22/22 06:22 Lipase 3 U/L (11-82) L 11/18/22 16:49 Procalcitonin 1.73 ng/ml (0-0.5) H 11/18/22 20:14 Random Cortisol 13.84 mcg/dl 11/18/22 20:15 Urine Color Dark Yellow 11/18/22 22:30 Urine Appearance Clear (Clear) 11/18/22 22:30 Urine pH 5.5 (4.5-7.5) 11/18/22 22:30 Ur Specific [place] > 1.045 (1.000-1.030) H 11/18/22 22:30 Urine Protein 1+ (Negative) H 11/18/22 22:30 Urine Glucose (UA) Trace (Negative) H 11/18/22 22:30 Urine Ketones 1+ (Negative) H 11/18/22 22:30 Urine Blood Negative (Negative) 11/18/22 22:30 Urine Nitrite Negative (Negative) 11/18/22 22:30 Urine Bilirubin Negative (Negative) 11/18/22 22:30 Urine Urobilinogen Negative (Negative) 11/18/22 22:30 Ur Leukocyte Esterase Negative (Negative) 11/18/22 22:30 Urine WBC (Auto) 1-5 /hpf (0-5) 11/18/22 22:30 Urine RBC (Auto) 0-4 /hpf (0-4) 11/18/22 22:30 U Hyaline Cast (Auto) 0 /lpf (0-5) 11/18/22 22:30 U Epithel Cells (Auto) 20-30 /lpf (0-5) H 11/18/22 22:30 Urine Bacteria (Auto) Negative (Negative) 11/18/22 22:30 Calcium Oxalate Crystal Present (None Prsent) A 11/18/22 22:30 Urine Sperm Not Reportable 11/18/22 22:30 Nasal Screen MRSA (PCR) Negative (Negative) 11/18/22 20:24 Adenovirus (PCR) Not Detected (NotDetected) 11/18/22 20:24 B. pertussis DNA (PCR) Not Detected (NotDetected) 11/18/22 20:24 B.parapertussis DNA PCR Not Detected (NotDetected) 11/18/22 20:24 C. pneumoniae DNA (PCR) Not Detected (NotDetected) 11/18/22 20:24 Coronavirus OC43 (PCR) Not Detected (NotDetected) 11/18/22 20:24 Coronavirus HKU1 (PCR) Not Detected (NotDetected) 11/18/22 20:24 Coronavirus 229E (PCR) Not Detected (NotDetected) 11/18/22 20:24 SARS-CoV-2 (PCR) NEGATIVE (Negative) 11/18/22 20:24 SARS-CoV-2 (PCR) Not Detected (NotDetected) 11/18/22 20:24 Coronavirus NL63 (PCR) Not Detected (NotDetected) 11/18/22 20:24 Human Metapneumovir PCR Not Detected (NotDetected) 11/18/22 20:24 Influenza Type A (PCR) Negative (Neg) 11/18/22 20:24 Influenza Type A (PCR) Not Detected (NotDetected) 11/18/22 20:24 Influenza Type B (PCR) Negative (Neg) 11/18/22 20:24 Influenza Type B (PCR) Not Detected (NotDetected) 11/18/22 20:24 Urine Legionella Ag SEE NOTE 11/18/22 22:30 M. pneumoniae (PCR) Not Detected (NotDetected) 11/18/22 20:24 Parainfluenza 1 (PCR) Not Detected (NotDetected) 11/18/22 20:24 Parainfluenza 2 (PCR) Not Detected (NotDetected) 11/18/22 20:24 Parainfluenza 3 (PCR) Not Detected (NotDetected) 11/18/22 20:24 Parainfluenza 4 (PCR) Not Detected (NotDetected) 11/18/22 20:24 RSV (RT-PCR) Negative (Neg) 11/18/22 20:24 RSV (PCR) Not Detected (NotDetected) 11/18/22 20:24 Entero/Rhino (PCR) Not Detected (NotDetected) 11/18/22 20:[address] 11/18/22 18:25 Exam(s): CT HEAD Without Contrast EXAM: CT Head Without Intravenous Contrast CLINICAL HISTORY: Reason for exam: Meningioma, r/o mass effect. TECHNIQUE: Axial computed tomography images of the head/brain without intravenous contrast. CTDI is 135.87 mGy and DLP is 1513.82 mGy-cm. Automated exposure control was utilized for the study. A dose lowering technique was utilized adhering to the principles of ALARA. COMPARISON: No relevant prior studies available. FINDINGS: Brain: The cerebrum appears within normal limits. There is mass-effect upon the right side of the [place] from the skull base mass. No acute large vessel infarct or hemorrhage is seen. Ventricles: Mild prominence of the lateral and third ventricles. 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 There appears to be a soft tissue component extending at least 2.5 cm into the posterior fossa compressing the right side of the [place]. Previous right occipital craniotomy. Soft tissues: Unremarkable. Sinuses: Opacification of the ethmoid air cells, greater on the right than the left. Mastoid air cells: Opacification of the right mastoid air cells, partially destroyed by tumor. Nasal cavity/septum: Previous reabsorption or resection of the nasal septum and sphenoid sinuses. IMPRESSION: 1. Mild prominence of the lateral and third ventricles. No overt hydrocephalus at this time. Consider comparison to prior studies which are not currently available and/or follow-up to exclude developing hydrocephalus. The mass lesion could compress the aqueduct of [place]. 2. 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 There appears to be a soft tissue component extending at least 2.5 cm into the posterior fossa compressing the right side of the [place]. Electronically signed by: George Atwood MD 11/18/22 22:21 PM Chest CTA 11/18/22 19:30 Exam(s): CTA CHEST IV Amt: 118 ML OPTIRAY 350 EXAM: CT Angiography Chest With Intravenous Contrast CLINICAL HISTORY: Reason for exam: PE. TECHNIQUE: Axial computed tomographic angiography images of the chest with intravenous contrast. CTDI is 135.87 mGy and DLP is 1513.82 mGy-cm. Automated exposure control was utilized for the study. A dose lowering technique was utilized adhering to the principles of ALARA. MIP reconstructed images were created and reviewed. COMPARISON: No relevant prior studies available. FINDINGS: Pulmonary arteries: Unremarkable. No acute pulmonary embolism. Aorta: No acute findings. No thoracic aortic aneurysm. Lungs: Airspace consolidation in the RIGHT lower lobe, and to a lesser extent RIGHT middle lobe and RIGHT upper lobe, consistent with multifocal pneumonia. Correlate for aspiration given that the patient is intubated. Atelectasis at LEFT lung base. Pleural space: Unremarkable. No significant effusion. No pneumothorax. Heart: Unremarkable. No cardiomegaly. No significant pericardial effusion. No evidence of RV dysfunction. Bones/joints: Degenerative changes of the spine. No acute fracture. No dislocation. Soft tissues: Unremarkable. Lymph nodes: Unremarkable. No enlarged lymph nodes. Tubes, lines and devices: Endotracheal tube terminates in the trachea. Feeding tube terminates in the stomach. RIGHT central venous line terminates in the SVC. IMPRESSION: 1. No acute pulmonary embolism. 2. Airspace consolidation in the RIGHT lower lobe, and to a lesser extent RIGHT middle lobe and RIGHT upper lobe, consistent with multifocal pneumonia. Correlate for aspiration given that the patient is intubated. 3. Endotracheal tube terminates in the trachea. 4. Feeding tube terminates in the stomach. Electronically signed by: Pierce Forbes MD 11/18/22 22:14 PM Chest X-Ray 11/23/22 10:55 XR chest 1V portable CLINICAL HISTORY: Hypoxia. COMPARISON STUDY: Chest CT November 18, 2022. Chest radiograph November 19, 2022. FINDINGS: The endotracheal and nasogastric tubes have been removed. Right int ernal jugular central line has been removed. There is no pneumothorax. Small right pleural effusion is noted. Extensive right lower lung consolidation has slightly progressed with volume loss. Diffuse reticulonodular interstitial thickening within the remainder of the right lung is noted. Left basilar opacity is again noted. IMPRESSION: 1. Bibasilar consolidation, greater on the right. These have mildly increased and favor pneumonia or aspiration pneumonitis. Associated right lower lobe volume loss. 2. Small right pleural effusion. ACT 112: Negative or not required by law. Electronically signed by: Subhash Strickland M.D. 11/23/2022 11:21 AM
[2022-11-24] MEDS ORDERED: LORazepam 2 MG/1 ML VIAL IV PRN (17:03)
[2022-11-24] MEDS ORDERED: MoRPHine SULFATE 2 MG/ML CARP IV PRN (19:21)
--- NOTE | 2022-11-25 17:18 | Discharge Summary ---
Date of Service November 24, 2022 Admission HPI Per Admitting Provider He is a 67 years old obese male with significant past medical history of diagnosed meningioma in 2016 followed by a biopsy in [address] Fournier in [facility]. He was evaluated in September of this year by Dr. Fournier and he has been otherwise stable without any significant problem. He started to have abnormal speech and also issues with swallowing about more than 1 month ago and he has been on Keytruda and dexamethasone for meningioma and the complication detailed of that is not known. He also was diagnosed with melanoma involving the left IUD a which according to the family members was clear but now he has melanoma in volving the right side as well. He has been in [place] and on Tuesday he was evaluated by hospice service for continuation of hospice care at home. The patient decided to come to [place] near to his son and family members and was evaluated by local hospice service this morning. He did not have any significant symptoms since Tuesday except occasional cough but no fever and or chills but this morning his condition got severely worse with wheezing more shortness of breath and unsteady gait when he was advised to come to the emergency room for further evaluation. Also during that time he mentioned to have all procedures like intubation, resuscitation, feeding tube to be done if it requires so that was a change from his requirements since Tuesday. In the ER he was very short of breath febrile and noted to have very low blood pressure with chest x-ray evidence of multilobar pneumonia mostly on the right side and which required intubation. He was started with intravenous cefepime, vancomycin and pressor resents in the emergency room and was admitted to ICU for continuation of care. Admission Exam Per Admitting Provider Physical Exam: Remains on mechanical ventilation and sedation Constitutional: well developed, well nourished, + ill appearing and + obese Eyes: Closed on the left and partially open on the right side ENMT: external ear and nose normal, oropharynx normal Neck: trachea midline, no thyromegaly Respiratory: Auscultation: + crackles (Coarse crackles right side) Remains intubated on mechanical ventilation, Cardiovascular: Rate/Rhythm: regular rate, regular rhythm and + tachycardic Heart Sounds: normal S1 and normal S2; no murmur Extremities: no edema Gastrointestinal (Abdomen): Inspection/Auscultation: normal bowel sounds; abdomen not distended Percussion/Palpation: abdomen soft Musculoskeletal: No acute arthritis in any joint Neurologic: Intubated on mechanical ventilation Principal Diagnosis Acute respiratory failure with hypoxia Septic shock Multifocal aspiration pneumonia Discharge Exam Patient on November 24, 2022 at 7:45 PM Discharge Data Allergies Allergy/AdvReac Type Severity Reaction Status Date / Time iodine Allergy Unknown SWELLING Verified 11/18/22 19:43 shellfish derived Allergy Unknown SWELLING Verified 11/18/22 19:43 Consultations 11/18/22 17:55 Consult Aeronautical Engineering Technologist Routine 11/20/22 14:12 Consult Palliative Care Routine Ordered Studies 11/18/22 18:25 CT Brain [CT head/brain wo con] Stat 11/18/22 19:30 CT angio chest PE protocol Stat Hospital Course (1) Septic shock: (2) Pneumonia: Acute respiratory failure with hypoxia Septic shock Multifocal aspiration pneumonia Patient is a 67-year-old male with history of meningioma (history of resection/radiation treatment, currently on Keytruda) presented to the hospital with septic shock secondary to aspiration pneumonia He was admitted to ICU; was on multiple pressors on presentation CTA chest on admission was personally reviewed; found to have airspace consolidation in right lower lobe. Patient was extubated on 11/20. Also, off pressors since same date. Sputum culture showed pansensitive Klebsiella Discussion was done by palliative care with family; CODE STATUS changed to DNR/DNI as per patient wishes. Comfort measures were started. Patient on November 24, 2022 at 7:45 PM Plan Please note the above document was generated using voice recognition software. It may contain grammatical, syntax or spelling errors. Any formal questions or concerns about the content, text or information contained within the body of this dictation should be directly addressed to the provider for clarification Total Time Total Time Spent Total Time Spent (In Minutes): 45 Total Time Includes: Examination of the Patient, Discharge Planning, Medication Reconciliation, Communication With Other Providers and Other Discharge Plan Discharge Items Patient Disposition: Other Date/Time: 11/24/22 19:45
== END 2022-11-24 21:00 | disposition expired | DRG 871 ==
LOC: ED 16:21 → SUATTDRO 17:55 → 1E 17:55 → 2S 11-20 17:11 → 3W 11-23 23:02